=== PATIENT | female | born 1950 | race Caucasian/White ===

== ENCOUNTER 2017-08-20 22:14 | Inpatient (IN) | payer BC ==
[2017-08-20] MEDS ORDERED: Albuterol/Ipratropium NEB.SOL* Albuterol 2.5 MG/Ipratropium 0.5 MG 3 ML INH ONE (22:46)
[2017-08-20] MEDS ORDERED: methylPREDNISolone 125 MG* 2 ML VIAL IV ONE (22:46)
[2017-08-20] MEDS ORDERED: Magnesium Sulfate 2 GM IV* 2 GM/50 ML BAG IVPB ONE (22:46)
[2017-08-20] MEDS: Albuterol 2.5 MG/3 ML NEB.SOL* (0.083%) INH SCH (23:31)
[2017-08-20 23:36] LABS: ABS Basophils 0.1 10^3/ul (0-0.2); ABS Eosinophils 0.1 10^3/ul (0-0.6); ABS Lymphocytes 2.4 10^3/ul (1.0-4.8); ABS Monocytes 1.3 10^3/ul (0-0.8); ABS Neutrophils 10.9 10^3/ul (1.5-7.7); ABS Nucleated RBC 0 10^3/ul; Eosinophil % 0.6 % (0-6); Hematocrit 39 % (35-47); Hemoglobin 13.4 g/dl (12.0-16.0); Lymphocyte % 16.1 % (25-47); Mean Corpuscular HGB Conc 34 g/dl (31-36); Mean Corpuscular Hemoglobin 31 pg (27-31); Mean Corpuscular Volume 91 fL (80-97); Mean Platelet Volume 7.5 um3 (7.4-10.4); Nucleated Red Blood Cells % 0; Platelet Count 298 10^3/ul (150-450); Red Cell Distribution Width 15 % (10.5-15); White Blood Count 14.8 10^3/ul (3.5-10.8)
[2017-08-20 23:54] LABS: EGFR Non-African American 96.9 (>60)
[2017-08-21] MEDS ORDERED: Baclofen TAB* 10 MG PO PRN (00:18)
[2017-08-21] MEDS ORDERED: traMADol TAB* 50 MG PO PRN (00:31)
[2017-08-21] MEDS ORDERED: Acetaminophen TAB* 325 MG PO PRN (00:31)
[2017-08-21] MEDS: Enoxaparin(*) 80 MG/0.8 ML SYR SUBCUT SCH ×2 (00:40→13:10)
[2017-08-21] MEDS ORDERED: Levofloxacin 500 MG IVPREMIX(* 500 MG/100 ML BAG IVPB SCH (01:00)
[2017-08-21] MEDS ORDERED: Clotrimazole TROCHE* 10 MG TROCHE PO SCH (02:00)
--- NOTE | 2017-08-21 03:41 | ED ---
Ernesto Villegas Thomas, scribed for Hien Galvan MD on 08/20/17 at 2302 . Shortness of Breath - HPI Summary HPI Summary: The patient is a 66 year old female complaining of shortness of breath for the last few days. She went to urgent care five days ago, where she had a CXR and was diagnosed with pneumonia and put on Levaquin. The patient also complains of upper back pain. She denies chest pain. She has a 50 year smoking history. - History of Current Complaint Chief Complaint: EDShortnessOfBreath Time Seen by Provider: 08/20/17 22:39 Hx Obtained From: Patient Onset/Duration: Lasting Days, Still Present Timing: Constant Current Severity: Moderate Dyspnea At: Rest Alleviating Factors: Nothing Associated Signs & Symptoms: Negative - chest pain - Allergy/Home Medications Allergies/Adverse Reactions: Allergies Allergy/AdvReac Type Severity Reaction Status Date / Time aspirin Allergy Unknown Verified 08/20/17 22:44 Reaction Details erythromycin base Allergy Unknown Verified 08/20/17 22:44 Reaction Details molds Allergy Unknown Uncoded 08/20/17 22:44 Reaction Details Home Medications: Home Medications Albuterol HFA INHALER* [Ventolin HFA Inhaler*] 1 puff INH Q4H PRN 08/20/17 [ History Confirmed 08/20/17] Baclofen TAB* [Lioresal TAB*] 10 mg PO TID PRN 08/20/17 [History Confirmed 08/20] Clotrimazole PATRIA* [Mycelex PATRIA*] 10 mg MT .FIVETIMESADAY 08/20/17 [ History Confirmed 08/20/17] Furosemide TAB* [Lasix TAB*] 40 mg PO DAILY 08/20/17 [History Confirmed 08/20/17 ] Ibuprofen TAB* [Advil TAB*] 200 mg PO Q6H PRN 08/20/17 [History Confirmed ] Levofloxacin TAB* [Levaquin TAB*] 750 mg PO DAILY 08/20/17 [History Confirmed ] predniSONE TAB* [Deltasone TAB*] 20 mg PO DAILY 08/20/17 [History Confirmed 07/05] PMH/Surg Hx/FS Hx/Imm Hx Cardiovascular History: Reports: Hx Deep Vein Thrombosis - 10 yrs ago Respiratory History: Reports: Other Respiratory Problems/Disorders - bronchitis x2 Sensory History: Reports: Hx Contacts or Glasses - pt family brought in Opthamlomology History: Reports: Hx Contacts or Glasses - pt family brought in - Surgical History Surgery Procedure, Year, and Place: hysterectomy,appendectomy Infectious Disease History: Denies: Traveled Outside the [place] in Last 30 Days - Family History Known Family History: Negative: Seizure Disorder - Social History Alcohol Use: None Hx Substance Use: No Substance Use Type: Reports: None Hx Tobacco Use: Yes Smoking Status (MU): Heavy Every Day Tobacco Smoker Review of Systems Negative: Fever Negative: Chest Pain Positive: Shortness Of Breath Positive: Other - Upper back pain All Other Systems Reviewed And Are Negative: Yes Physical Exam - Summary Physical Exam Summary: VITAL SIGNS: Reviewed. GENERAL: Patient is a well-developed and nourished female who is lying comfortable in the stretcher. Patient is not in any acute respiratory distress. HEAD AND FACE: No signs of trauma. No ecchymosis, hematomas or skull depressions. No sinus tenderness. EYES: PERRLA, EOMI x 2, No injected conjunctiva, no nystagmus. EARS: Hearing grossly intact. Ear canals and tympanic membranes are within normal limits. MOUTH: Oropharynx within normal limits. NECK: She has JVD. Supple, trachea is midline, no adenopathy, no carotid bruit, no c-spine tenderness, neck with full ROM. CHEST: Symmetric, no tenderness at palpation LUNGS: There are decreased breath sounds bilaterally. She has expiratory wheezes. CVS: Regular rate and rhythm, S1 and S2 present, no murmurs or gallops appreciated. ABDOMEN: Soft, non-tender. There is abdominal distention. No rebound no guarding , and no masses palpated. Bowel sounds are normal. EXTREMITIES: She has 2+ bilateral lower extremity edema. FROM in all major joints, no cyanosis or clubbing. NEURO: Alert and oriented x 3. No acute neurological deficits. Speech is normal and follows commands SKIN: Dry and warm Triage Information Reviewed: Yes Vital Signs On Initial Exam: Initial Vitals Temp Pulse Resp BP Pulse Ox 97.5 F 93 26 148/67 97 08/20/17 22:23 08/20/17 22:23 08/20/17 22:23 08/20/17 22:23 08/20/17 22:23 Vital Signs Reviewed: Yes Diagnostics - Vital Signs Vital Signs Temp Pulse Resp BP Pulse Ox 08/20/17 22:37 85 20 130/85 97 08/20/17 22:23 97.5 F 93 26 148/67 97 - Laboratory Result Diagrams: 08/20/17 23:25 08/20/17 23:25 Lab Statement: Any lab studies that have been ordered have been reviewed, and results considered in the medical decision making process. - Radiology CXR Xray Interpretation: Positive (See Comments) - Hyperinflation. COPD. Radiology Interpretation Completed By: ED Physician - EKG 00:20 Cardiac Rate: NL EKG Rhythm: Sinus Rhythm - at 93 BPM Ectopy: PVCs Course/Dx - Course Assessment/Plan: The patient is a 66 year old female complaining of shortness of breath for the last few days. In the ED course, the patient was given Ventolin, DuoNeb, magnesium sulfate, and SoluMedrol. Bloodwork was obtained. EKG shows sinus rhythm at 93 BPM with PVCs. CXR shows hyperinflation and COPD. The patient will be admitted to Dr. Atwood. - Diagnoses Provider Diagnoses: Acute bronchitis, COPD (chronic obstructive pulmonary disease) - Physician Notifications Discussed Care of Patient With: Africa Atwood Time Discussed With Above Provider: 00:30 Instructed by Provider To: Admit As Inpatient Discharge - Sign-Out/Discharge Documenting (check all that apply): Discharge/Admit/Transfer - Discharge Plan Condition: Fair Disposition: ADMITTED TO [facility] Referrals: Hector Quiles MD [Primary Care Provider] - The documentation as recorded by the Ernesot akers Thomas accurately reflects the service I personally performed and the decisions made by , Hien Galvan MD.
--- NOTE | 2017-08-21 04:24 | HP ---
CC: Dr. Figueroa * HISTORY AND PHYSICAL: DATE OF ADMISSION: 08/21/17 PRIMARY CARE PROVIDER: Dr. Figueroa. CHIEF COMPLAINT: Shortness of breath. HISTORY OF PRESENT ILLNESS: Ms. Maldonado is a 66-year-old female who has a longstanding history of tobacco abuse, smoking anywhere between 1/2 to 1 pack per day since the age of 15, who presents to the emergency room with complaints of severe shortness of breath. The patient states that she went on vacation to [place] approximately 1 month ago. She got back approximately 2 weeks ago. She states that prior to her trip to [place], she was having spasms in her back. She states the first week of her vacation in [place], she actually felt quite well; however, during the second week, she again noted muscle spasms in the back. She denies any sudden onset of chest pain. She states her breathing became difficult during that second week of vacation. She denies any recent sick contacts. She states that she does have a frequent cough and is bringing up yellowish sputum. She also notes that since arriving home, her legs are more swollen than usual. She saw a physician on 08/14/17 where she was prescribed baclofen. She states it is extremely painful to cough or sneeze due to pain in her back. On 08/15/17, she continues to feel worse and therefore went to urgent care. At that time, she had a chest x-ray and was diagnosed with pneumonia. She was started on Levaquin. Despite initiation of therapy with Levaquin, she continued to feel more and more short of breath and therefore , presented to the emergency room for evaluation. PAST MEDICAL HISTORY: 1. Longstanding tobacco abuse. Patient adamantly denies a history of COPD, but seems to be in denial. 2. Chronic lower extremity edema. PAST SURGICAL HISTORY: 1. Appendectomy. 2. Hysterectomy. ALLERGIES: ASPIRIN, ERYTHROMYCIN, MOLD, and she states that she cannot have a CT with contrast. FAMILY HISTORY: Mom in her 40s with cervical cancer. Dad in his 80s of old age. SOCIAL HISTORY: The patient currently smokes one-half to three-quarters of pack of cigarettes per day. She states that used to be a lot of more than that. She states that she has been smoking since the age of 15. She denies any alcohol use. 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 She is . She had 1 child, who in February. REVIEW OF SYSTEMS: The patient states that she has had a low-grade temp of 99 at home. Her appetite has been essentially normal. She denies any chest pain. She does admit to worsen lower extremity edema. She admits to cough, shortness of breath, and sputum production as above. No nausea, vomiting, abdominal pain, constipation, diarrhea, or hematochezia. No hematuria, no dysuria. No focal weakness or sensory loss. No sudden changes in vision. No dysphagia. She admits to the back pain between her shoulder blades. No rashes. She admits to anxiety and depression since the passing of her son in February. She states that she found him and has been depressed since. PHYSICAL EXAMINATION GENERAL: The patient is a well-developed, middle-aged female, seems sitting up in the stretcher, appearing to be in moderate respiratory distress with abdominal breathing and accessory muscle use. VITAL SIGNS: Blood pressure 136/70, pulse 85, respirations 17, temp 97.5, O2 sat 92% on room air. HEENT: Pupils are equal and round. Extraocular muscles are intact. Oropharynx is clear. Oral mucosa is moist. The patient wears upper and lower dentures. There is no submandibular, cervical, or supraclavicular adenopathy. Thyroid is not enlarged. No thyroid nodules are noted. PULMONARY: Breath sounds are markedly diminished in all lung kelley. There is diffuse wheezing. There is very poor air movement at this time. CARDIAC: Normal S1, S2. Regular rate and rhythm. I do not appreciate any murmurs. There is a marked bilateral lower extremity edema. ABDOMEN: Bowel sounds are present. Abdomen is soft, nontender, nondistended. MUSCULOSKELETAL: There is no cyanosis or clubbing of the digits. There is full active range of motion of all 4 extremities. NEUROLOGIC: Cranial nerves II through XII are grossly intact. Sensation is intact to light touch throughout. Strength is 5/5 and symmetric in both upper and lower extremities bilaterally. SKIN: Warm and dry. There are no rashes. PSYCH: The patient is alert. She is oriented x3. Affect appears appropriate. DIAGNOSTIC STUDIES/LAB DATA: WBC 14.8, hemoglobin 13.4, hematocrit 39, platelets 298. Sodium 133, potassium 4.2, chloride 97, CO2 31, BUN 21, creatinine 0.62, glucose 81, lactic acid 1.0, calcium 8.8. Bilirubin 0.3, AST 17, ALT 17, alk phos 98. Troponin 0.01. CRP 16.7. Albumin 3.6. EKG reveals normal sinus rhythm without any acute ST-T wave abnormalities. Chest x-ray to my interpretation appears to be relatively clear, though I do question possible infiltrate at the left base. ASSESSMENT AND PLAN: Ms. Maldonado is a 66-year-old female with probable chronic obstructive pulmonary disease, though the patient adamantly denies this, ongoing tobacco abuse and chronic lower extremity edema, who presents to the emergency room with complaints of severe shortness of breath. 1. Acute respiratory distress. The patient has a moderate respiratory distress in the emergency room. I am concerned that she may tire out as she has been breathing like this for the last several days. At this point, we will admit her to the intensive care unit and place her on Vapotherm. The patient has agreed to BiPAP and intubation if necessary, though states that she knows that she will not need either of those modalities and that she will be fine. She will be treated for a probable COPD exacerbation with IV Solu-Medrol, standing nebs, and Levaquin. Additionally, she will be placed on Vapotherm to help with a work of her breathing. Given her long distance travel, back pain, and lower extremity edema, I am concerned that she could have a pulmonary embolism. The patient claims that she cannot have a CT with contrast. At this point, I will fully anticoagulate her with Lovenox 80 mg subcutaneous twice daily and plan on bilateral lower extremity Dopplers and a V/Q scan later today. 2. Lower extremity edema. The patient states that she usually has some lower extremity edema, but this is markedly worse than baseline. I will continue her Lasix 40 mg daily for now. 3. Back pain. We will continue baclofen p.r.n. and I will add Tylenol and tramadol for pain control. 4. DVT prophylaxis. According to the Adult Thrombosis Prophylaxis Risk Factor Assessment Guide, the patient has a total risk factor score of 4 making her high risk. Full dose Lovenox is going to be utilized at this time. 5. Code status is full. TIME SPENT: Sixty-five minutes was spent admitting this patient. [id number] #: [id number] MARIA D
[2017-08-21] MEDS: Albuterol 2.5 MG/3 ML NEB.SOL* (0.083%) INH SCH ×6 (04:27→23:37)
[2017-08-21] MEDS ORDERED: Heparin VIAL(*) 5000 UNITS/ML VIAL (FIVE THOUSAND) SUBCUT SCH (06:00)
[2017-08-21] MEDS: Clotrimazole TROCHE* 10 MG TROCHE PO SCH ×5 (06:14→21:50)
--- NOTE | 2017-08-21 07:24 | RAD ---
INDICATION: Shortness of breath. COMPARISON: Most recent comparison chest x-ray March 21, 2016 TECHNIQUE: Single AP portable view of the chest was obtained. FINDINGS: Image quality is compromised due to the relative inferiority of a portable chest x-ray. The heart and mediastinum exhibit normal size and contour. The lungs are grossly clear. There is no evidence of a large pleural effusion. Visualized bones are normal for the patient's age. IMPRESSION: No radiographic evidence for acute cardiopulmonary abnormality on this portable chest x-ray.
[2017-08-21] MEDS: Furosemide TAB* 40 MG PO SCH (08:25)
[2017-08-21] MEDS: methylPREDNISolone SOD 40 MG* 1 ML VIAL IV SCH ×3 (08:25→23:58)
--- NOTE | 2017-08-21 08:37 | RAD ---
INDICATION: Pain and swelling. COMPARISON: None TECHNIQUE: Duplex interrogation of the both lower extremities was performed. FINDINGS: Deep veins: The common femoral, great saphenous, profunda femoris, proximal, mid, and distal deep femoral, popliteal, posterior tibial, and peroneal veins are patent. There is normal compressibility, augmentation, and phasic flow. Superficial veins: There are no findings of superficial thrombophlebitis. Popliteal fossa:There is no evidence of a popliteal cyst. Soft tissues:There are no soft tissue abnormalities. IMPRESSION: NORMAL BILATERAL EXAMINATION. NO EVIDENCE OF DEEP VENOUS THROMBOSIS
--- NOTE | 2017-08-21 10:26 | PN ---
Subjective Date of Service: 08/21/17 Interval History: Pt is down to 2 l on her 02 requirements, but very SOB when walking 5 steps to bathroom. Feels "the same as yesterday" Objective Active Medications: Acetaminophen (Tylenol Tab*) 650 mg PO Q4H PRN PRN Reason: PAIN Albuterol (Ventolin 2.5 Mg/3 Ml Neb.Mariam*) 2.5 mg INH RT.[id number] AWAKE [facility] Last Admin: 08/21/17 08:43 Dose: 2.5 mg Baclofen (Lioresal Tab*) 10 mg PO TID PRN PRN Reason: SPASMS Clotrimazole (Mycelex Maryellen*) 10 mg PO FIVE TIMES DAILY [facility] Last Admin: 08/21/17 10:13 Dose: 10 mg Enoxaparin Sodium (Lovenox(*)) 80 mg SUBCUT Q12H [facility] Last Admin: 08/21/17 00:40 Dose: 80 mg Furosemide (Lasix Tab*) 40 mg PO DAILY [facility] Last Admin: 08/21/17 08:25 Dose: 40 mg Azithromycin 500 mg/ Sodium (Chloride) 250 mls @ 250 mls/hr IVPB Q24H [facility] Methylprednisolone Sodium Succinate (Solu-Medrol 40 Mg) 40 mg IV Q8H [facility] Last Admin: 08/21/17 08:25 Dose: 40 mg Tramadol HCl (Ultram*) 50 mg PO Q6H PRN PRN Reason: PAIN Vital Signs - 8 hr 08/21/17 08/21/17 08/21/17 02:28 02:37 02:44 Temperature 98 F Pulse Rate 93 97 87 Respiratory 25 18 26 Rate Blood Pressure 137/74 133/82 (mmHg) O2 Sat by Pulse 97 97 97 Oximetry 08/21/17 08/21/17 08/21/17 02:45 02:47 03:00 Temperature Pulse Rate 85 82 Respiratory 21 27 24 Rate Blood Pressure 135/72 134/75 (mmHg) O2 Sat by Pulse 97 98 Oximetry 08/21/17 08/21/17 08/21/17 03:31 03:47 04:00 Temperature 97.7 F Pulse Rate 82 86 81 Respiratory 25 26 21 Rate Blood Pressure 153/77 117/82 (mmHg) O2 Sat by Pulse 99 98 96 Oximetry 08/21/17 08/21/17 08/21/17 04:01 05:00 06:00 Temperature Pulse Rate 80 81 78 Respiratory 22 22 17 Rate Blood Pressure 135/85 136/74 124/68 (mmHg) O2 Sat by Pulse 99 97 96 Oximetry 08/21/17 08/21/17 08/21/17 07:00 07:01 08:00 Temperature 98.3 F Pulse Rate 84 80 Respiratory 25 25 24 Rate Blood Pressure 120/75 133/75 (mmHg) O2 Sat by Pulse 95 97 Oximetry 08/21/17 08/21/17 08/21/17 08:45 09:00 09:01 Temperature Pulse Rate 72 95 77 Respiratory 22 28 27 Rate Blood Pressure 128/70 (mmHg) O2 Sat by Pulse 94 85 95 Oximetry 08/21/17 08/21/17 10:00 10:02 Temperature Pulse Rate 103 95 Respiratory 29 29 Rate Blood Pressure (mmHg) O2 Sat by Pulse 96 96 Oximetry Oxygen Devices in Use Now: OxyMask Appearance: 66 yo F in nAD, aAOx3 Eyes: No Scleral Icterus, PERRLA Ears/Nose/Mouth/Throat: NL Teeth, Lips, Gums, Mucous Membranes Moist Neck: NL Appearance and Movements; NL JVP, Trachea Midline Respiratory: Symmetrical Chest Expansion and Respiratory Effort, - - diffuse wheezes and rhonchi b/l Cardiovascular: NL Sounds; No Murmurs; No JVD, RRR Abdominal: NL Sounds; No Tenderness; No Distention, No Hepatosplenomegaly Lymphatic: No Cervical Adenopathy Extremities: No Clubbing, Cyanosis, - - +1 pitting pedal edema b/l Skin: No Rash or Ulcers, No Nodules or Sclerosis Neurological: Alert and Oriented x 3, NL Muscle Strength and Tone Result Diagrams: 08/20/17 23:25 08/20/17 23:25 Microbiology and Other Data: Microbiology 08/21/17 02:40 Nasal Screen MRSA (PCR)(EMEKA) - Final Nasal Mrsa Not Detected Assess/Plan/Problems-Billing Assessment: 66 yo F with h/o 50 pack yr smoking with COPD exacerbation - Patient Problems (1) Acute hypoxemic respiratory failure Comment: due to COPD, but V/Q to r/o PE pending cont empiric Lovenox for now. Dopplers neg for DVT (2) COPD exacerbation Comment: cont Solu Medrol, nebs SARTHAK due to low procalcitonin and neg CXR will d/c Levaquin and start Azithro for antiinflammatory properties. (pt had nausea with e-mycin, OK to give azithro) (3) Leg edema Comment: will get echo to r/o R sided CHF related to lung disease BNP low cont home Lasix dose (4) Thrush, oral Comment: now evidence now on exam. Dx on 08/15/17 as outpatient. Cont clotrimazome for now whn on antibiotics (5) DVT prophylaxis Comment: Lovenox Status and Disposition: Inpatient
[2017-08-21] MEDS: Azithromycin IV(*) 500 MG in NS 0.9% 250 ML* 250 ML IVPB SCH (12:01)
--- NOTE | 2017-08-21 13:59 | RAD ---
HISTORY: Shortness of breath COMPARISON: Chest x-ray dated August 20, 2012 TECHNIQUE: Pulmonary ventilation/perfusion scintigraphy was performed with dynamic cine images and multiple planar images. DOSE: Ventilation: Xenon-133 10.25 millicuries, administered at 11:31 AM on August 21, 2017 Perfusion: Technetium 99m microaggregated albumin 6.2 millicuries, administered at 11:31 AM on August 21, 2017 FINDINGS: Ventilation: There is homogeneous ventilation. Perfusion: There are scattered, small subsegmental unmatched perfusion defects, without moderate or large matched defects. IMPRESSION: SCATTERED SMALL SUBSEGMENTAL UNMATCHED PERFUSION DEFECTS, CONSISTENT WITH LOW PROBABILITY VQ SCAN BY PIOPED CRITERIA CPT II Codes: 7787W8Y
--- NOTE | 2017-08-21 15:16 | ECHO ---
Patient: EMMIE CARLOS [facility] Rec#: [id number] : 1950 Date: 08/21/2017 Age: 66y Height: 167.64 cm / 66.0 in Weight: 79.38 kg / 175.0 lbs Sex: F BSA: 1.89 Room#: [facility] Admit Date#: 08/21/2017 Type: Inpatient Referring: Nahed Rodgers MD Reading: Osbaldo Cavazos DO Him Specialist: Maty Willis RDCS CC: Hector Quiles MD Transthoracic Echocardiogram Indication: Dyspnea, edema. BP: 128/70 HR: 80 Rhythm: NSR Findings History: COPD, smoker, lower extremity edema. Technical Comments: The study quality is fair. The study is technically limited due to the patient's smoking history. Completed at 1400. Left Ventricle: The left ventricular chamber size is normal. Mild concentric left ventricular hypertrophy is observed. Global left ventricular wall motion and contractility are within normal limits. There is normal left ventricular systolic function. The estimated ejection fraction is 60-65%. Abnormal left ventricular diastolic filling is observed, consistent with impaired relaxation. Left Atrium: The left atrium is mildly dilated. Right Ventricle: The right ventricle is mildly dilated. The right ventricular global systolic function is normal. Right Atrium: The right atrial cavity size is normal. Aortic Valve: The aortic valve is trileaflet. The aortic valve leaflets are mildly thickened. There is no evidence of aortic regurgitation. There is no evidence of aortic stenosis. Mitral Valve: The mitral valve leaflets are mildly thickened. There is a trace of mitral regurgitation. There is no evidence of mitral stenosis. Tricuspid Valve: The tricuspid valve leaflets are normal. There is trace tricuspid regurgitation. Unable to estimate the right ventricular systolic pressure. There is no tricuspid stenosis. Pulmonic Valve: The pulmonic valve structure is not well visualized. The pulmonic valve appears normal. There is no pulmonic stenosis. Pericardium: There is no significant pericardial effusion. Aorta: There is no dilatation of the ascending aorta. There is no dilatation of the aortic arch. The aortic root is normal in size. Pulmonary Artery: The main pulmonary artery is not well visualized. Venous: The inferior vena cava is dilated. There is a greater than 50% respiratory change in the inferior vena cava dimension. Conclusions The left ventricular chamber size is normal. Mild concentric left ventricular hypertrophy is observed. Global left ventricular wall motion and contractility are within normal limits. There is normal left ventricular systolic function. The estimated ejection fraction is 60-65%. The left atrium is mildly dilated. The right ventricle is mildly dilated. The right ventricular global systolic function is normal. Unable to estimate the right ventricular systolic pressure. There is trace tricuspid regurgitation. The inferior vena cava is dilated. There is a greater than 50% respiratory change in the inferior vena cava dimension. None prior for comparison at time of interpretation Measurements Name Value Normal Range RVIDd (AP) 2D 2.5 cm (0.9 - 2.6) RVDdMajor (2D) 4.9 cm (2.2 - 4.4) RAd ISD 4CH 4.3 cm (3.4 - 4.9) RA (A4C)W 4 cm (2.9 - 4.6) IVSd (2D) 1.2 cm (0.6 - 1) LVPWd (2D) 1.1 cm (0.6 - 1) LVIDd (2D) 4.3 cm (3.6 - 5.4) LVIDs (2D) 3.4 cm - LV FS (2D) 21 % (25 - 45) Aortic Annulus 2.1 cm (1.4 - 2.6) Ao root diameter (2D) 3.1 cm (2.1 - 3.5) Ascending Ao 3 cm (2.1 - 3.4) Aortic arch 2.3 cm (1.8 - 3.4) LA dimension (AP) 2D 2.9 cm (2.3 - 3.8) LAd ISD 4CH 4.8 cm (2.9 - 5.3) LA ISD 4CH W 3.5 cm (2.5 - 4.5) Name Value Normal Range LA ESV SP 4CH (A/L) 64 ml - LA ESV SP 2CH (A/L) 58 ml - LA ESV BP (A/L) 63 ml - LA ESV BP (A/L) index 33 ml/m2 - LA ESV SP 4CH (MOD) 59 ml - LA ESV SP 2CH (MOD) 57 ml - Name Value Normal Range MV E-wave Vmax 0.84 m/sec - MV deceleration time 175.6 msec - MV A-wave Vmax 1.03 m/sec - MV E:A ratio 0.81 ratio - LV septal e' Vmax 0.07 m/sec - LV lateral e' Vmax 0.09 m/sec - LV E:e' septal ratio 12 ratio - LV E:e' lateral ratio 9.33 ratio - Name Value Normal Range AV Vmax 1.4 m/sec - AV VTI 22.3 cm - AV peak gradient 7.35 mmHg - AV mean gradient 4.16 mmHg - LVOT Vmax 1.1 m/sec - LVOT VTI 24.26 cm - LVOT peak gradient 4.86 mmHg - LVOT mean gradient 2.41 mmHg - PIPPA Vmax 0.77 m/sec - Name Value Normal Range IVC diameter 2.3 cm - Name Value Normal Range PV Vmax 0.84 m/sec - PV peak gradient 2.85 mmHg -
[2017-08-22] MEDS: Albuterol 2.5 MG/3 ML NEB.SOL* (0.083%) INH SCH ×4 (03:57→20:00)
[2017-08-22] MEDS: Clotrimazole TROCHE* 10 MG TROCHE PO SCH ×2 (06:26→10:47)
[2017-08-22 07:02] LABS: ABS Basophils 0 10^3/ul (0-0.2); ABS Eosinophils 0 10^3/ul (0-0.6); ABS Lymphocytes 0.9 10^3/ul (1.0-4.8); ABS Monocytes 0.8 10^3/ul (0-0.8); ABS Nucleated RBC 0 10^3/ul; Eosinophil % 0 % (0-6); Hematocrit 36 % (35-47); Lymphocyte % 4.7 % (25-47); Mean Corpuscular HGB Conc 33 g/dl (31-36); Mean Corpuscular Hemoglobin 30 pg (27-31); Mean Corpuscular Volume 91 fL (80-97); Mean Platelet Volume 7.3 um3 (7.4-10.4); Nucleated Red Blood Cells % 0; Platelet Count 298 10^3/ul (150-450); Red Blood Count 3.98 10^6/ul (4.0-5.4); Red Cell Distribution Width 14 % (10.5-15); White Blood Count 18.6 10^3/ul (3.5-10.8)
[2017-08-22 07:18] LABS: EGFR Non-African American 111.3 (>60)
[2017-08-22] MEDS: Enoxaparin(*) 40 MG/0.4 ML SYR SUBCUT SCH (08:19)
[2017-08-22] MEDS: methylPREDNISolone SOD 40 MG* 1 ML VIAL IV SCH (08:20)
[2017-08-22] MEDS: Furosemide TAB* 40 MG PO SCH (08:20)
[2017-08-22] MEDS: Azithromycin IV(*) 500 MG in NS 0.9% 250 ML* 250 ML IVPB SCH ×2 (10:55→13:11)
[2017-08-22] MEDS ORDERED: predniSONE TAB* 10 MG PO ONE (11:31)
[2017-08-22] MEDS: Azithromycin TAB* 250 MG PO SCH (13:15)
--- NOTE | 2017-08-22 13:35 | PN ---
Subjective Date of Service: 08/22/17 Interval History: pt feels much better, but still, requires 02 at 2L. Had a bad night, since her roommate was up at night. Talked about her back pain that occurred in and still occasionally bothers her Objective Active Medications: Acetaminophen (Tylenol Tab*) 650 mg PO Q4H PRN PRN Reason: PAIN Albuterol (Ventolin 2.5 Mg/3 Ml Neb.Mariam*) 2.5 mg INH [id number] AWAKE [facility] TO [facility] Last Admin: 08/22/17 07:55 Dose: 2.5 mg Azithromycin (Zithromax Tab*) 250 mg PO DAILY [facility] Last Admin: 08/22/17 13:15 Dose: 250 mg Baclofen (Lioresal Tab*) 10 mg PO TID PRN PRN Reason: SPASMS Enoxaparin Sodium (Lovenox(*)) 40 mg SUBCUT DAILY [facility] Last Admin: 08/22/17 08:19 Dose: 40 mg Furosemide (Lasix Tab*) 40 mg PO DAILY [facility] Last Admin: 08/22/17 08:20 Dose: 40 mg Prednisone (Deltasone Tab*) 60 mg PO DAILY [facility] TO [facility] Tramadol HCl (Ultram*) 50 mg PO Q6H PRN PRN Reason: PAIN Vital Signs - 8 hr 08/22/17 07:55 Pulse Rate 74 Respiratory 14 Rate O2 Sat by Pulse 100 Oximetry Oxygen Devices in Use Now: OxyMask - at 2l Appearance: 66 yo f in nAD, aAOx3 Eyes: No Scleral Icterus, PERRLA Ears/Nose/Mouth/Throat: NL Teeth, Lips, Gums, Mucous Membranes Moist Neck: NL Appearance and Movements; NL JVP, Trachea Midline Respiratory: Symmetrical Chest Expansion and Respiratory Effort, - - bibasiliar wheezes noted Cardiovascular: NL Sounds; No Murmurs; No JVD, RRR Abdominal: NL Sounds; No Tenderness; No Distention, No Hepatosplenomegaly Lymphatic: No Cervical Adenopathy Extremities: No Clubbing, Cyanosis, - - trace nonpitting pedal edema b/l Skin: No Rash or Ulcers, No Nodules or Sclerosis Neurological: Alert and Oriented x 3, NL Muscle Strength and Tone Result Diagrams: 08/22/17 06:41 08/22/17 06:41 Microbiology and Other Data: Microbiology 08/21/17 02:40 Nasal Screen MRSA (PCR)(EMEKA) - Final Nasal Mrsa Not Detected Assess/Plan/Problems-Billing Assessment: 66 yo F with h/o 50 pack yr smoking with COPD exacerbation - Patient Problems (1) Acute hypoxemic respiratory failure Comment: due to COPD. pt educated about the need of formal PFT's to eval for COPD as outpatient V/q shows low prob. for PE Dopplers neg for DVT echo shows EF 55% and diastolic dysfunction (2) COPD exacerbation Comment: will switch Solu Medrol to Prednisone Azithro for antiinflammatory properties will be cont PO if tolerated. (pt had nausea with e-mycin, OK to give azithro) (3) Leg edema Comment: No evidence of CHF on Echo BNP low cont home Lasix dose (4) Thrush, oral Comment: now evidence now on exam, will d/c clotrimazole (5) DVT prophylaxis Comment: Lovenox Status and Disposition: Inpatient
[2017-08-23] MEDS: Albuterol 2.5 MG/3 ML NEB.SOL* (0.083%) INH SCH ×4 (01:04→19:40)
--- NOTE | 2017-08-23 08:03 | PN ---
Subjective Date of Service: 08/23/17 Interval History: Pt took Baclofen for back pain last night and today is more SOB. Thinks it's related to the medication. Objective Active Medications: Acetaminophen (Tylenol Tab*) 650 mg PO Q4H PRN PRN Reason: PAIN Albuterol (Ventolin 2.5 Mg/3 Ml Neb.Mariam*) 2.5 mg INH [id number] AWAKE [facility] Last Admin: 08/23/17 07:04 Dose: 2.5 mg Azithromycin (Zithromax Tab*) 250 mg PO DAILY [facility] Last Admin: 08/22/17 13:15 Dose: 250 mg Enoxaparin Sodium (Lovenox(*)) 40 mg SUBCUT DAILY [facility] Last Admin: 08/22/17 08:19 Dose: 40 mg Furosemide (Lasix Tab*) 40 mg PO DAILY [facility] Last Admin: 08/22/17 08:20 Dose: 40 mg Prednisone (Deltasone Tab*) 60 mg PO DAILY [facility] Tramadol HCl (Ultram*) 50 mg PO Q6H PRN PRN Reason: PAIN Last Admin: 08/22/17 23:40 Dose: 50 mg Vital Signs - 8 hr 08/23/17 08/23/17 08/23/17 01:45 03:48 07:06 Temperature 97.4 F Pulse Rate 76 66 Respiratory 20 22 20 Rate Blood Pressure 137/67 (mmHg) O2 Sat by Pulse 98 99 Oximetry Oxygen Devices in Use Now: OxyMask - at 1L Appearance: 66 yo F in nAD, aAOx3 Eyes: No Scleral Icterus, PERRLA Ears/Nose/Mouth/Throat: NL Teeth, Lips, Gums, Mucous Membranes Moist Neck: NL Appearance and Movements; NL JVP, Trachea Midline Respiratory: Symmetrical Chest Expansion and Respiratory Effort, - - very decreased breath sounds b/l Cardiovascular: NL Sounds; No Murmurs; No JVD, RRR Abdominal: NL Sounds; No Tenderness; No Distention Lymphatic: No Cervical Adenopathy Extremities: No Clubbing, Cyanosis, - - trace b/l nonpitting pedal edema Skin: No Rash or Ulcers, No Nodules or Sclerosis Neurological: Alert and Oriented x 3, NL Muscle Strength and Tone Result Diagrams: 08/22/17 06:41 08/22/17 06:41 Microbiology and Other Data: Microbiology 08/21/17 02:40 Nasal Screen MRSA (PCR)(EMEKA) - Final Nasal Mrsa Not Detected Assess/Plan/Problems-Billing Assessment: 66 yo F with h/o 50 pack yr smoking with COPD exacerbation - Patient Problems (1) Acute hypoxemic respiratory failure Comment: due to COPD. pt educated about the need of formal PFT's to eval for COPD as outpatient V/q shows low prob. for PE. Pt thiks she may have an adverse reaction to Baclofen that may cause her SOB, will stop the medication Dopplers neg for DVT echo shows EF 55% and diastolic dysfunction (2) COPD exacerbation Comment: Cont PO Prednisone Azithro for antiinflammatory properties will be cont PO (pt had nausea with e- mycin, OK to give azithro) (3) Leg edema Comment: No evidence of CHF on Echo BNP low cont home Lasix dose (4) Thrush, oral Comment: now evidence now on exam, clotrimazole d/c'd (5) DVT prophylaxis Comment: Lovenox Status and Disposition: Inpatient. Plan to wean off 02 and ambulate. Possible d/c tomorrow
[2017-08-23] MEDS: Furosemide TAB* 40 MG PO SCH (08:26)
[2017-08-23] MEDS: predniSONE TAB* 20 MG PO SCH (08:26)
[2017-08-23] MEDS: Azithromycin TAB* 250 MG PO SCH (08:26)
[2017-08-23] MEDS: Enoxaparin(*) 40 MG/0.4 ML SYR SUBCUT SCH (08:31)
[2017-08-23] MEDS: Ibuprofen TAB* 600 MG PO PRN ×2 (10:55→19:15)
[2017-08-24] MEDS: Albuterol 2.5 MG/3 ML NEB.SOL* (0.083%) INH SCH ×3 (00:23→07:09)
[2017-08-24] MEDS: Ibuprofen TAB* 600 MG PO PRN (03:21)
[2017-08-24 06:29] LABS: ABS Basophils 0.1 10^3/ul (0-0.2); ABS Eosinophils 0.1 10^3/ul (0-0.6); ABS Lymphocytes 3.4 10^3/ul (1.0-4.8); ABS Monocytes 1.2 10^3/ul (0-0.8); ABS Nucleated RBC 0 10^3/ul; Eosinophil % 0.5 % (0-6); Hematocrit 36 % (35-47); Hemoglobin 12.1 g/dl (12.0-16.0); Lymphocyte % 24.8 % (25-47); Mean Corpuscular HGB Conc 34 g/dl (31-36); Mean Corpuscular Hemoglobin 31 pg (27-31); Mean Corpuscular Volume 91 fL (80-97); Nucleated Red Blood Cells % 0; Platelet Count 308 10^3/ul (150-450); Red Blood Count 3.91 10^6/ul (4.0-5.4); Red Cell Distribution Width 15 % (10.5-15); White Blood Count 13.8 10^3/ul (3.5-10.8)
[2017-08-24 06:48] LABS: EGFR Non-African American 80.3 (>60)
[2017-08-24 07:51] VITALS: BP 128/58
[2017-08-24] MEDS: predniSONE TAB* 20 MG PO SCH (08:59)
[2017-08-24] MEDS: Azithromycin TAB* 250 MG PO SCH (09:00)
[2017-08-24] MEDS: Furosemide TAB* 40 MG PO SCH (09:00)
[2017-08-24] MEDS: Enoxaparin(*) 40 MG/0.4 ML SYR SUBCUT SCH (09:05)
--- NOTE | 2017-08-25 06:15 | DS ---
CC: Dr. Figueroa; Dr. Quiles; Dr. Bae * DISCHARGE SUMMARY: DATE OF ADMISSION: 08/21/17 DATE OF DISCHARGE: 08/717 PRIMARY CARE PROVIDER: Dr. Figueroa and Dr. Quiles. DISCHARGE DIAGNOSIS: Acute hypoxemic respiratory failure due to chronic obstructive pulmonary disease exacerbation. SECONDARY DIAGNOSES: 1. The patient is an active smoker. 2. Bilateral pedal edema. 3. History of lower back pain. MEDICATION AT DISCHARGE: 1. Azithromycin 250 mg daily for 1 day total to complete a 5 day course. Please note that the patient was noted be allergic to ERYTHROMYCIN but she has been tolerating azithromycin p.o. without any problems. 2. DuoNeb one nebulizer every 4 hours p.r.n. 3. Albuterol inhaler one puff every 4 hours p.r.n. The patient was instructed not to use both albuterol inhaler and nebulizer together. 4. Lasix 40 mg daily. 5. Prednisone 40 mg daily for 2 days, then 20 mg daily for 2 days, then 10 mg daily for 2 days, then stop. At discharge, the patient recommended to follow up with her primary care provider in approximately 4 to 7 days. The patient also was instructed call Dr. Bae's office for further evaluation and treatment of her COPD. LABORATORY DATA AND STUDIES PERFORMED DURING THE HOSPITAL STAY: On 08/24/17, white blood cell count 13.8, hemoglobin is 12.1, hematocrit 36, platelets 308. Sodium of 136, potassium 4.6, chloride 97, carbon dioxide 35, BUN 31, creatinine 0.73. Procalcitonin level was 0.1 at admission. Venous Doppler study obtained on 08/21/17; impression: "Normal bilateral examination. No evidence of DVT." V/Q lung scan obtained on 08/21/17; impression: "Scattered small subsegmental and large pleural effusion defects consistent with low probability V/Q scan." Portable chest x-ray obtained on 08/20/17; impression: "No radiographic evidence for acute cardiopulmonary abnormality on this portable chest x-ray." HOSPITAL COURSE: Jessica Maldonado is a 66-year-old female with history of long- term smoking who presented to the hospital complaining of inability to breathe. The patient was profoundly hypoxemic and required Vapotherm treatment in the intensive care unit. Further workup included low-probability V/Q scan and negative Doppler to rule out DVT of bilateral lower extremities. The patient also had transthoracic echocardiogram due to the fact that she has chronic lower extremity edema which showed EF of 60% to 65% with ventricular diastolic filling consistent with impaired relaxation and trace tricuspid regurgitation. There was no evidence of CHF on her echocardiogram. Slowly the patient was able to be weaned from Vapotherm to oxygen and from oxygen to room air. She continued to be counseled in regard to smoking cessation. She had smoked almost a pack for over 50 years and she refuses to stop smoking. She refuses nicotine replacement and she appears to be in mild nicotine withdrawal during her hospital stay requesting to be discharged everyday of her admission despite being aware that she was not able to go home yet at that point. She also appeared to be in denial of her diagnosis of COPD or any lung disease in that matter. Patient stated that shortness of breath comes from her lower back pain or baclofen and is not related to lung disease or smoking. I strongly recommended the patient to follow up with the pulmonology specialist Dr. Bae , who would perform pulmonary function test evaluation and diagnosis of underlying pulmonary disease. The patient stated that she "will think about it. " The patient also was strongly recommended not to smoke after discharge but I doubt if she will adhere to this advice. PHYSICAL EXAMINATION AT THE TIME OF DISCHARGE: Blood pressure 138/58, heart rate of 93 and regular, respiratory rate 17, oxygen saturation 96% on room air, temperature 97.4. General: The patient is a very pleasant 66-year-old female who is in no acute distress, alert, awake, oriented x3. HEENT: Head atraumatic , normocephalic. Eyes: Pupils are equal and reactive to light and accommodation. Oropharynx clear. Mucosa moist. Neck: Supple. No JVD. No bruits bilaterally. Cardiovascular: Regular rate and rhythm. No murmur. Respiratory: Distant breath sounds bilaterally, no wheezes. Abdomen: Soft, nontender. Bowel sounds present in all 4 quadrants. Extremities: There is no edema. Pulses +2 bilaterally. No clubbing or cyanosis. On neuro evaluation, speech clear. Cranial nerves II through XII grossly intact. Motor strength is 5/5 bilaterally. Please note that patient has typical barrel-chest appearance of a person with history of COPD. Please note that this is a short summary of the patient's hospitalization. Please refer to further medical records for details. TIME SPENT: Approximately 45 minutes was spent on patient's discharge. [id number]/[facility] #: [id number]
== END 2017-08-24 11:30 | disposition home or self-care (01) | DRG 140 ==
LOC: ED 22:14 → ICU 08-21 00:13 → MED 08-21 17:22
PROVIDERS: ADMIT Hospitalist; ATTEND Internal Medicine
DX: J44.1 Chronic obstructive pulmonary disease with (acute) exacerbation (principal); J96.01 Acute respiratory failure with hypoxia; B37.0 Candidal stomatitis; F17.210 Nicotine dependence, cigarettes, uncomplicated; R60.0 Localized edema; Z88.6 Allergy status to analgesic agent; Z88.1 Allergy status to other antibiotic agents; Z91.041 Radiographic dye allergy status; Z91.048 Other nonmedicinal substance allergy status; Z80.49 Family history of malignant neoplasm of other genital organs
CPT/HCPCS: 36415; 71045; 78582; 80048; 80053; 83605; 83880; 84145; 84484; 85025; 86140; 87040; 87641; 93005; 93306; 93970; 94640; 99284; A9270-GY; A9540; A9558; J0456; J1650; J1956; J2920; J2930; J3475; J7512

== ENCOUNTER 2017-09-10 20:17 | Inpatient (IN) | payer BC ==
[2017-09-10] MEDS ORDERED: Ipratropium 0.5MG/2.5ML NEB* 0.5 MG/2.5 ML NEB.SOLN INH ONE (21:00)
[2017-09-10] MEDS ORDERED: methylPREDNISolone 125 MG* 2 ML VIAL IV ONE (21:00)
[2017-09-10] MEDS ORDERED: Magnesium Sulfate 2 GM IV* 2 GM/50 ML BAG IVPB ONE (21:03)
[2017-09-10 21:46] LABS: INR 0.84 (0.77-1.02)
[2017-09-10 21:50] LABS: EGFR Non-African American 93.4 (>60)
[2017-09-10] MEDS ORDERED: Albuterol 2.5 MG/3 ML NEB.SOL* (0.083%) ONE (21:56)
[2017-09-10] MEDS: Albuterol (2.5 MG) 0.5 % CONC 2.5 MG/0.5 ML NEB.SOLN (ICU and ED only) INH SCH ×2 (22:04→22:05)
[2017-09-10 22:52] LABS: ABS Basophils 0.1 10^3/ul (0-0.2); ABS Eosinophils 0.3 10^3/ul (0-0.6); ABS Lymphocytes 1.8 10^3/ul (1.0-4.8); ABS Monocytes 0.9 10^3/ul (0-0.8); ABS Neutrophils 6.3 10^3/ul (1.5-7.7); ABS Nucleated RBC 0 10^3/ul; Eosinophil % 3.3 % (0-6); Hematocrit 35 % (35-47); Hemoglobin 12.1 g/dl (12.0-16.0); Lymphocyte % 19.5 % (25-47); Mean Corpuscular HGB Conc 35 g/dl (31-36); Mean Corpuscular Hemoglobin 31 pg (27-31); Mean Corpuscular Volume 90 fL (80-97); Mean Platelet Volume 7.8 um3 (7.4-10.4); Nucleated Red Blood Cells % 0.1; Platelet Count 286 10^3/ul (150-450); Red Blood Count 3.91 10^6/ul (4.0-5.4); Red Cell Distribution Width 14 % (10.5-15); White Blood Count 9.4 10^3/ul (3.5-10.8)
[2017-09-10] MEDS ORDERED: Furosemide IV* 10 MG/ML VIAL (40 MG) IV ONE (23:00)
[2017-09-10] MEDS ORDERED: Ondansetron ODT TAB* 4 MG PO PRN (23:32)
[2017-09-10] MEDS ORDERED: Albuterol 2.5 MG/3 ML NEB.SOL* (0.083%) INH PRN (23:32)
[2017-09-10] MEDS ORDERED: CMCS:Melatonin (NF) 3 MG TAB PO PRN (23:32)
[2017-09-10] MEDS ORDERED: Acetaminophen TAB* 325 MG PO PRN (23:32)
--- NOTE | 2017-09-10 23:35 | HP ---
H&P (Free Text) History and Physical: PCP: Diana Figueroa MD Date/Time: 09/10/2017 2330 CC: SOB HPI: Mrs Maldonado is a 66YO white female smoker who was [place] [facility] [place] for COPD exacerbation although she denies the history of COPD despite being informed during the prior admission. She relates going home, continuing to smoke, and experiencing worsening SOB which she goes to great length to explain is a result of her furnace malfunctioning causing her to breath carbon monoxide. Despite having her furnace repaired she continued to have SOB and presented for evaluation tonight. SOB is worse with activity, better at rest. There is no chest pain, palpitations, N/V/D, sweats, or light- headedness. She denies change in sputum or F/C. PMedHx COPD diastolic dysfunction w/o HX CHF hypothyroidism chronic LE edema Ambulatory Orders Furosemide TAB* [Lasix TAB*] 40 mg PO DAILY 08/20/17 Albuterol/Ipratropium NEB.ALTAGRACIA* [Duoneb (Albuterol 2.5 MG/Ipratropium 0.5 MG)] 1 neb INH Q4H PRN #100 neb.altagracia 08/24/17 Albuterol inh POWDER (NF) [Proair Respiclick] 1 puff INH Q4HR PRN 09/10/17 Baclofen TAB* [Lioresal TAB*] 10 mg PO TID PRN 09/10/17 Fluticasone HFA 110 mcg(NF) [Flovent HFA 110 mcg(NF)] 2 puff INH BID 09/10/17 Levothyroxine TAB* [Synthroid TAB*] 25 mcg PO DAILY 09/10/17 Allergies aspirin Allergy (Verified 08/20/17 22:44) Unknown Reaction Details erythromycin base Allergy (Verified 08/20/17 22:44) Unknown Reaction Details molds Allergy (Uncoded 08/20/17 22:44) Unknown Reaction Details PSurgHx appendectomy hysterectomy SocHx: continues to smoke but is very vague about how much, denies alcohol and recreational drugs; lives with her ; full code status FamHx: Mother: passed in her 40s 2nd cervical CA; Father: passed in his 80s of "old age" ROS: as above, otherwise reviewed and all were negative vitals: Vital Signs Temp 36.6 C 09/11/17 00:12 Pulse 81 09/11/17 00:20 Resp 39 09/11/17 00:20 BP 134/81 09/11/17 00:20 Pulse Ox 91 09/11/17 00:20 Intake & Output 09/10/17 09/10/17 09/11/17 11:59 23:59 11:59 Intake Total 50 Balance 50 Weight 78.925 kg Intake: IV Fluids 50 Constitutional: NAD, normally developed, overweight white female HEENM: atraumatic; sclera/conjunctiva: anicteric/clear; hearing: clinically intact; oropharynx: clear, mucosa moist Neck: soft tissue: non-tender; thyroid: normal Pulmonary: barrel-chested, brief inspiration w/ prolonged expiration, scant end- expiratory wheeze, very poor aeration, no accessory muscle use CV: RR/RR, normal S1S2, no carotid bruit, no jugular venous distention, 2+ B DP/ PT, 2+ BLE edema Abdominal: soft, non-distended, non-tender, no rebound/guarding/rigidity, normoactive bowel sounds, no hepatosplenomegaly or masses, no costovertebral angle tenderness Musculoskeletal: general: grossly intact, tender B anterior shins Integumental: BLE skin taut/shiny w/o breakdown or weeping Psychiatric orientation: AA&O to PPS affect: calm mood: cooperative eye contact: fair to good content: reliable responses: timely insight: poor Testing: Lab Results 09/10/17 09/10/17 09/10/17 Range/Units 21:20 21:20 21:22 WBC 9.4 (3.5-10.8) 10^3/ul RBC 3.91 L (4.0-5.4) 10^6/ul Hgb 12.1 (12.0-16.0) g/dl Hct 35 (35-47) % MCV 90 (80-97) fL MCH 31 (27-31) pg MCHC 35 (31-36) g/dl RDW 14 (10.5-15) % Plt Count 286 (150-450) 10^3/ul MPV 7.8 (7.4-10.4) um3 Neut % (Auto) 67.0 (38-83) % Lymph % (Auto) 19.5 L (25-47) % Stevens % (Auto) 9.4 H (0-7) % Eos % (Auto) 3.3 (0-6) % Baso % (Auto) 0.8 (0-2) % Absolute Neuts (auto) 6.3 (1.5-7.7) 10^3/ul Absolute Lymphs (auto) 1.8 (1.0-4.8) 10^3/ul Absolute Monos (auto) 0.9 H (0-0.8) 10^3/ul Absolute Eos (auto) 0.3 (0-0.6) 10^3/ul Absolute Basos (auto) 0.1 (0-0.2) 10^3/ul Absolute Nucleated RBC 0 10^3/ul Nucleated RBC % 0.1 INR (Anticoag Therapy) 0.84 (0.77-1.02) APTT 30.1 (26.0-36.3) seconds ABG pH (7.35-7.45) ABG pCO2 (35-45) mmHg ABG pO2 (80-100) mmHg ABG HCO3 (19-31) mmol/L ABG O2 Saturation (95-98) % ABG Base Excess (-2.0-2.0) Carbon Monoxide Screen (<4.0) % Sodium 128 L (139-145) mmol/L Potassium 4.1 (3.5-5.0) mmol/L Chloride 91 L (101-111) mmol/L Carbon Dioxide 31 (22-32) mmol/L Anion Gap 6 (2-11) mmol/L BUN 12 (6-24) mg/dL Creatinine 0.64 (0.51-0.95) mg/dL Est GFR ( Amer) 120.1 (>60) Est GFR (Non-Af Amer) 93.4 (>60) BUN/Creatinine Ratio 18.8 (8-20) Glucose 99 (70-100) mg/dL Calcium 9.1 (8.6-10.3) mg/dL Total Bilirubin 0.50 (0.2-1.0) mg/dL AST 20 (13-39) U/L ALT 20 (7-52) U/L Alkaline Phosphatase 109 H (34-104) U/L Troponin I 0.01 (<0.04) ng/mL C-Reactive Protein 16.16 H (< 5.00) mg/L B-Natriuretic Peptide ( - 100) pg/mL Total Protein 6.3 L (6.4-8.9) g/dL Albumin 3.8 (3.2-5.2) g/dL Globulin 2.5 (2-4) g/dL Albumin/Globulin Ratio 1.5 (1-3) 09/10/17 09/10/17 09/10/17 Range/Units 21:22 22:00 22:30 WBC (3.5-10.8) 10^3/ul RBC (4.0-5.4) 10^6/ul Hgb (12.0-16.0) g/dl Hct (35-47) % MCV (80-97) fL MCH (27-31) pg MCHC (31-36) g/dl RDW (10.5-15) % Plt Count (150-450) 10^3/ul MPV (7.4-10.4) um3 Neut % (Auto) (38-83) % Lymph % (Auto) (25-47) % Stevens % (Auto) (0-7) % Eos % (Auto) (0-6) % Baso % (Auto) (0-2) % Absolute Neuts (auto) (1.5-7.7) 10^3/ul Absolute Lymphs (auto) (1.0-4.8) 10^3/ul Absolute Monos (auto) (0-0.8) 10^3/ul Absolute Eos (auto) (0-0.6) 10^3/ul Absolute Basos (auto) (0-0.2) 10^3/ul Absolute Nucleated RBC 10^3/ul Nucleated RBC % INR (Anticoag Therapy) (0.77-1.02) APTT (26.0-36.3) seconds ABG pH 7.45 (7.35-7.45) ABG pCO2 42 (35-45) mmHg ABG pO2 55 L* (80-100) mmHg ABG HCO3 28.4 (19-31) mmol/L ABG O2 Saturation 94.8 L (95-98) % ABG Base Excess 4.7 H (-2.0-2.0) Carbon Monoxide Screen 5.7 H (<4.0) % Sodium (139-145) mmol/L Potassium (3.5-5.0) mmol/L Chloride (101-111) mmol/L Carbon Dioxide (22-32) mmol/L Anion Gap (2-11) mmol/L BUN (6-24) mg/dL Creatinine (0.51-0.95) mg/dL Est GFR ( Amer) (>60) Est GFR (Non-Af Amer) (>60) BUN/Creatinine Ratio (8-20) Glucose (70-100) mg/dL Calcium (8.6-10.3) mg/dL Total Bilirubin (0.2-1.0) mg/dL AST (13-39) U/L ALT (7-52) U/L Alkaline Phosphatase (34-104) U/L Troponin I (<0.04) ng/mL C-Reactive Protein (< 5.00) mg/L B-Natriuretic Peptide 32 ( - 100) pg/mL Total Protein (6.4-8.9) g/dL Albumin (3.2-5.2) g/dL Globulin (2-4) g/dL Albumin/Globulin Ratio (1-3) 09/11/17 09/11/17 Range/Units 00:02 00:02 WBC 10.6 (3.5-10.8) 10^3/ul RBC 4.01 (4.0-5.4) 10^6/ul Hgb 12.5 (12.0-16.0) g/dl Hct 36 (35-47) % MCV 89 (80-97) fL MCH 31 (27-31) pg MCHC 35 (31-36) g/dl RDW 14 (10.5-15) % Plt Count 271 (150-450) 10^3/ul MPV 7.0 L (7.4-10.4) um3 Neut % (Auto) 90.3 H (38-83) % Lymph % (Auto) 6.3 L (25-47) % Stevens % (Auto) 2.1 (0-7) % Eos % (Auto) 0.7 (0-6) % Baso % (Auto) 0.6 (0-2) % Absolute Neuts (auto) 9.6 H (1.5-7.7) 10^3/ul Absolute Lymphs (auto) 0.7 L (1.0-4.8) 10^3/ul Absolute Monos (auto) 0.2 (0-0.8) 10^3/ul Absolute Eos (auto) 0.1 (0-0.6) 10^3/ul Absolute Basos (auto) 0.1 (0-0.2) 10^3/ul Absolute Nucleated RBC 0 10^3/ul Nucleated RBC % 0 INR (Anticoag Therapy) (0.77-1.02) APTT (26.0-36.3) seconds ABG pH (7.35-7.45) ABG pCO2 (35-45) mmHg ABG pO2 (80-100) mmHg ABG HCO3 (19-31) mmol/L ABG O2 Saturation (95-98) % ABG Base Excess (-2.0-2.0) Carbon Monoxide Screen (<4.0) % Sodium (139-145) mmol/L Potassium (3.5-5.0) mmol/L Chloride (101-111) mmol/L Carbon Dioxide (22-32) mmol/L Anion Gap (2-11) mmol/L BUN 12 (6-24) mg/dL Creatinine 0.58 (0.51-0.95) mg/dL Est GFR ( Amer) 134.6 (>60) Est GFR (Non-Af Amer) 104.7 (>60) BUN/Creatinine Ratio (8-20) Glucose (70-100) mg/dL Calcium (8.6-10.3) mg/dL Total Bilirubin (0.2-1.0) mg/dL AST (13-39) U/L ALT (7-52) U/L Alkaline Phosphatase (34-104) U/L Troponin I (<0.04) ng/mL C-Reactive Protein (< 5.00) mg/L B-Natriuretic Peptide ( - 100) pg/mL Total Protein (6.4-8.9) g/dL Albumin (3.2-5.2) g/dL Globulin (2-4) g/dL Albumin/Globulin Ratio (1-3) ECG, personally reviewed: NSR rate 82, no ischemia CXR, personally reviewed: no acute process ECHO (08/21/2017): Conclusions: The left ventricular chamber size is normal. Mild concentric left ventricular hypertrophy is observed. Global left ventricular wall motion and contractility are within normal limits. There is normal left ventricular systolic function. The estimated ejection fraction is 60 -65%. The left atrium is mildly dilated. The right ventricle is mildly dilated. The right ventricular global systolic function is normal. Unable to estimate the right ventricular systolic pressure. There is trace tricuspid regurgitation. The inferior vena cava is dilated. There is a greater than 50% respiratory change in the inferior vena cava dimension. None prior for comparison at time of interpretation. Impression: 66F presenting with COPD exacerbation DIAGNOSIS & PLAN Primary COPD exacerbationj : patient in denial of diagnosis : albuterol, mometasone/formoterol, tiotropium, & IV methylprednisolone : supplemental oxygen : smoking cessation advised, low motivation : nicotine replacement : supportive care Secondary hypothyroidism : continue levothyroxine Admission Rational: inpatient for COPD exacerbation not anticipated to be adequately resolved w/i 48h to allow for discharge DVTp: heparin SQ & SCDs Code Status: full HCP:
[2017-09-11 00:10] LABS: ABS Basophils 0.1 10^3/ul (0-0.2); ABS Eosinophils 0.1 10^3/ul (0-0.6); ABS Lymphocytes 0.7 10^3/ul (1.0-4.8); ABS Monocytes 0.2 10^3/ul (0-0.8); ABS Neutrophils 9.6 10^3/ul (1.5-7.7); ABS Nucleated RBC 0 10^3/ul; Eosinophil % 0.7 % (0-6); Hematocrit 36 % (35-47); Hemoglobin 12.5 g/dl (12.0-16.0); Lymphocyte % 6.3 % (25-47); Mean Corpuscular HGB Conc 35 g/dl (31-36); Mean Corpuscular Hemoglobin 31 pg (27-31); Mean Corpuscular Volume 89 fL (80-97); Nucleated Red Blood Cells % 0; Platelet Count 271 10^3/ul (150-450); Red Blood Count 4.01 10^6/ul (4.0-5.4); Red Cell Distribution Width 14 % (10.5-15); White Blood Count 10.6 10^3/ul (3.5-10.8)
--- NOTE | 2017-09-11 00:25 | ED ---
Osmany Villegas Elizabeth, scribed for Hien Galvan MD on 09/10/17 at 2107 . Shortness of Breath - HPI Summary HPI Summary: This patient is a 66 year old F presenting to [facility] upon referral from her primary care physician with a chief complaint of shortness of breath since this afternoon. Symptoms aggravated by lying down. Symptoms alleviated by upright position. Patient reports orthopnea, bilateral pedal edema, and pain in both feet. The patient notes that she uses oxygen at home. The patient notes that they recently replaced a faulty heater in her home which had caused them to breathe in carbon monoxide. She reports that they did not clean their air- conditioning unit and used it today. The patient has a hx of COPD and has been taking Lasix. - History of Current Complaint Chief Complaint: EDShortnessOfBreath Time Seen by Provider: 09/10/17 20:50 Hx Obtained From: Patient, Family/Training Project Manager Onset/Duration: Gradual Onset, Lasting Hours, Still Present Timing: Constant Current Severity: Mild Dyspnea At: Orthopena Alleviating Factors: Upright Position Associated Signs & Symptoms: Calf Pain/Swelling, Edema - bilateral pedal edema - Allergy/Home Medications Allergies/Adverse Reactions: Allergies Allergy/AdvReac Type Severity Reaction Status Date / Time aspirin Allergy Unknown Verified 08/20/17 22:44 Reaction Details erythromycin base Allergy Unknown Verified 08/20/17 22:44 Reaction Details molds Allergy Unknown Uncoded 08/20/17 22:44 Reaction Details Home Medications: Home Medications Albuterol inh POWDER (NF) [Proair Respiclick] 1 puff INH Q4HR PRN 09/10/17 [ History Confirmed 09/10/17] Baclofen TAB* [Lioresal TAB*] 10 mg PO TID PRN 09/10/17 [History Confirmed 09/10] Fluticasone HFA 110 mcg(NF) [Flovent HFA 110 mcg(NF)] 2 puff INH BID 09/10/17 [ History Confirmed 09/10/17] Levothyroxine TAB* [Synthroid TAB*] 25 mcg PO DAILY 09/10/17 [History Confirmed 09/10/17] PMH/Surg Hx/FS Hx/Imm Hx Cardiovascular History: Reports: Hx Deep Vein Thrombosis - 10 yrs ago Respiratory History: Reports: Hx Chronic Obstructive Pulmonary Disease (COPD), Hx Pneumonia, Other Respiratory Problems/Disorders - bronchitis x2 Denies: Hx Asthma Musculoskeletal History: Reports: Hx Back Problems - Muscle spasms Sensory History: Reports: Hx Contacts or Glasses - pt family brought in Denies: Hx Hearing Aid Opthamlomology History: Reports: Hx Contacts or Glasses - pt family brought in - Surgical History Surgery Procedure, Year, and Place: hysterectomy,appendectomy Hx Anesthesia Reactions: No Infectious Disease History: No Infectious Disease History: Denies: Traveled Outside the [place] in Last 30 Days - Family History Known Family History: Negative: Seizure Disorder - Social History Alcohol Use: None Hx Substance Use: No Substance Use Type: Reports: None Hx Tobacco Use: Yes Smoking Status (MU): Heavy Every Day Tobacco Smoker Type: Cigarettes Amount Used/How Often: 3/4 pack/day Length of Time of Smoking/Using Tobacco: 50 years Have You Smoked in the Last Year: Yes Review of Systems Negative: Chest Pain Positive: Shortness Of Breath Negative: Abdominal Pain Musculoskeletal: Other - pain in both feet Positive: Edema - bilateral pedal edema All Other Systems Reviewed And Are Negative: Yes Physical Exam - Summary Physical Exam Summary: VITAL SIGNS: Reviewed. GENERAL: ~Patient is a well-developed and nourished female who is lying comfortable in the stretcher. Patient is not in any acute respiratory distress. HEAD AND FACE: No signs of trauma. No ecchymosis, hematomas or skull depressions. No sinus tenderness. EYES: PERRLA, EOMI x 2, No injected conjunctiva, no nystagmus. EARS: Hearing grossly intact. Ear canals and tympanic membranes are within normal limits. MOUTH: Oropharynx within normal limits. NECK: Supple, trachea is midline, no adenopathy, no carotid bruit, no c-spine tenderness, neck with full ROM. JVD. CHEST: Symmetric, no tenderness at palpation LUNGS: Decreased breath sounds bilaterally, expiratory wheezes. CVS: Regular rate and rhythm, S1 and S2 present, no murmurs or gallops appreciated. ABDOMEN: Soft, non-tender. No signs of distention. No rebound no guarding, and no masses palpated. Bowel sounds are normal. EXTREMITIES: FROM in all major joints, no cyanosis or clubbing. Bilateral +3 pedal edema, left food mildly red and tender NEURO: Alert and oriented x 3. No acute neurological deficits. Speech is normal and follows commands. SKIN: Dry and warm Triage Information Reviewed: Yes Vital Signs On Initial Exam: Initial Vitals Temp Pulse Resp BP Pulse Ox 98.2 F 88 22 108/71 93 09/10/17 20:32 09/10/17 20:32 09/10/17 20:32 09/10/17 20:32 09/10/17 20:32 Vital Signs Reviewed: Yes Diagnostics - Vital Signs Vital Signs Temp Pulse Resp BP Pulse Ox 09/10/17 20:32 98.2 F 88 22 108/71 93 - Laboratory Result Diagrams: 09/10/17 21:20 09/10/17 21:22 Lab Statement: Any lab studies that have been ordered have been reviewed, and results considered in the medical decision making process. - Radiology CXR Xray Interpretation: Positive (See Comments) Radiology Interpretation Completed By: ED Physician - Dr. Galvan, pending official report - EKG 21:20 Cardiac Rate: NL - at 82 BPM EKG Rhythm: Sinus Rhythm ST Segment: Normal EKG Interpretation: Normal axis, normal interval, no ischemic changes. Re-Evaluation - Re-Evaluation 1st re-eval Re-Evaluation Time: 23:24 Change: Unchanged Comment: Discussed imaging results with patient. Course/Dx - Course Course Of Treatment: An EKG reveals NSR at 82 BPM with normal axis, normal interval, and no ischemic changes. CXR reveals bilateral venous congestion as interpreted by Dr. Galvan. Pending official report. In the ED course the patient was given Solu-Medrol, magnesium sulfate, Atrovent, Albuterol. We discussed patient care with Dr. Mcadams and he agreed to admit patient to [facility]. Patient will be admitted to [facility] with dx of COPD. The patient is agreeable with this plan. - Diagnoses Provider Diagnoses: COPD (chronic obstructive pulmonary disease) - Physician Notifications Discussed Care of Patient With: Rai Browne MD Time Discussed With Above Provider: 23:31 Instructed by Provider To: Admit As Inpatient Discharge - Sign-Out/Discharge Documenting (check all that apply): Discharge/Admit/Transfer - Discharge Plan Condition: Stable Disposition: ADMITTED TO [facility] Referrals: Brendan Figueroa MD [Primary Care Provider] - The documentation as recorded by the Osmany akers Elizabeth accurately reflects the service I personally performed and the decisions made by me, Hien Galvan MD.
[2017-09-11 00:27] LABS: EGFR Non-African American 104.7 (>60)
[2017-09-11] MEDS: Albuterol 2.5 MG/3 ML NEB.SOL* (0.083%) INH SCH ×2 (02:35→08:55)
[2017-09-11 05:51] LABS: ABS Basophils 0 10^3/ul (0-0.2); ABS Eosinophils 0 10^3/ul (0-0.6); ABS Lymphocytes 0.3 10^3/ul (1.0-4.8); ABS Monocytes 0.1 10^3/ul (0-0.8); ABS Neutrophils 6.4 10^3/ul (1.5-7.7); ABS Nucleated RBC 0 10^3/ul; Eosinophil % 0 % (0-6); Hematocrit 35 % (35-47); Hemoglobin 12.2 g/dl (12.0-16.0); Lymphocyte % 4.7 % (25-47); Mean Corpuscular HGB Conc 35 g/dl (31-36); Mean Corpuscular Hemoglobin 31 pg (27-31); Mean Corpuscular Volume 89 fL (80-97); Mean Platelet Volume 7.5 um3 (7.4-10.4); Nucleated Red Blood Cells % 0; Platelet Count 299 10^3/ul (150-450); Red Blood Count 3.92 10^6/ul (4.0-5.4); Red Cell Distribution Width 14 % (10.5-15); White Blood Count 6.8 10^3/ul (3.5-10.8)
[2017-09-11] MEDS: Levothyroxine TAB* 25 MCG TAB PO SCH (06:00)
[2017-09-11] MEDS: Omeprazole CAP* 20 MG PO SCH (06:00)
[2017-09-11] MEDS: methylPREDNISolone SOD 40 MG* 1 ML VIAL IV SCH ×3 (06:01→22:09)
[2017-09-11] MEDS: Heparin VIAL(*) 5000 UNITS/ML VIAL (FIVE THOUSAND) SUBCUT SCH ×4 (06:04→22:11)
[2017-09-11 06:06] LABS: EGFR Non-African American 87.1 (>60)
--- NOTE | 2017-09-11 07:54 | RAD ---
HISTORY: Shortness of breath COMPARISONS: August 20, 2017 VIEWS: 1: frontal portable view of the chest at 10:52 AM FINDINGS: LINES AND TUBES: None. CARDIOMEDIASTINAL SILHOUETTE: The cardiomediastinal silhouette is normal for portable technique. PLEURA: The costophrenic angles are sharp. No pleural abnormalities are noted. LUNG PARENCHYMA: There is mild prominence of the pulmonary vasculature. ABDOMEN: The upper abdomen is clear. There is no subphrenic gas. BONES AND SOFT TISSUES: No bone or soft tissue abnormalities are noted. IMPRESSION: MILD PULMONARY VASCULAR CONGESTION. NO ACTIVE CARDIOPULMONARY DISEASE.
[2017-09-11] MEDS: Tiotropium CAP.INH* CAP.INH/18 MCG (USE ORDER SET !) INH SCH (08:18)
[2017-09-11] MEDS: Mometasone/Formoter 200/5 MDI INH SCH ×2 (08:18→20:29)
[2017-09-11] MEDS: Docusate CAP* 100 MG PO SCH ×2 (08:50→22:08)
[2017-09-11] MEDS ORDERED: Spiriva Inhaler DEVICE* 1 EACH DEVICE SCH (09:00)
--- NOTE | 2017-09-11 11:38 | PN ---
Subjective Date of Service: 09/11/17 Interval History: Ms. Maldonado reports that she is feeling better but that she continues to be short of breath with ambulation. She denies chest pain, nausea, or abdominal pain. Objective Active Medications: Acetaminophen (Tylenol Tab*) 650 mg PO Q6H PRN Albuterol (Ventolin 2.5 Mg/3 Ml Neb.Mariam*) 2.5 mg INH Q2H PRN Device (Tiotropium Inhaler Device*) 1 each .SEE ORDER .USE w/ SPIRIVA CAPS SARTHAK Docusate Sodium (Colace Cap*) 200 mg PO BID SARTHAK Heparin Sodium (Porcine) (Heparin Vial(*)) 5,000 units SUBCUT Q8HR SARTHAK Levothyroxine Sodium (Synthroid Tab*) 25 mcg PO DAILY@0600 SARTHAK Melatonin (Melatonin (Nf)) 3 mg PO BEDTIME PRN; Protocol Methylprednisolone Sodium Succinate (Solu-Medrol 40 Mg) 40 mg IV Q8H SARTHAK Mometasone Furoate/Formoterol Fumar (Dulera 200/5 Mdi*) 2 puff INH BID SARTHAK Omeprazole (Prilosec Cap*) 20 mg PO DAILY@0600 SARTHAK Ondansetron HCl (Zofran Odt Tab*) 4 mg PO Q6H PRN Tiotropium [place] (Spiriva Cap.Inh*) 1 cap INH DAILY [facility] Vital Signs: Temp Pulse Resp BP Pulse Ox 98.6 F 87 20 94/60 97 09/11/17 07:21 09/11/17 10:33 09/11/17 10:33 09/11/17 07:21 09/11/17 10:33 Oxygen Devices in Use Now: Nasal Cannula Appearance: Female sitting up on edge of bed in NAD Eyes: No Scleral Icterus Ears/Nose/Mouth/Throat: Mucous Membranes Moist Neck: Trachea Midline Respiratory: Symmetrical Chest Expansion and Respiratory Effort, - - Diminished , expiratory wheezing Cardiovascular: NL Sounds; No Murmurs; No JVD, No Edema Abdominal: NL Sounds; No Tenderness; No Distention Lymphatic: No Cervical Adenopathy Extremities: No Edema Skin: No Rash or Ulcers Neurological: Alert and Oriented x 3, NL Muscle Strength and Tone Nutrition: Taking PO's Result Diagrams: 09/11/17 05:26 09/11/17 05:26 Assess/Plan/Problems-Billing Assessment: Ms. Maldonado is a 66 yo F with a PMH of COPD who was recently admitted earlier in August for a COPD exacerbation who returns for COPD exacerbation. - Patient Problems (1) COPD exacerbation Comment: - Currently on 3L NC. - Continue solumedrol - Continue dulera and spiriva. (2) Hypothyroidism Comment: - Continue levothyroxine. (3) DVT prophylaxis Comment: - Hep SQ. (4) Full code status Comment: Status and Disposition: Inpatient. Anticipate discharge to home when medically stable.
--- NOTE | 2017-09-11 13:53 | RAD ---
INDICATION: Hypoxia. COPD. CHF. Long-term smoker. COMPARISON: September 10, 2017 and March 21, 2016 radiographs. TECHNIQUE: Multidetector CT images were obtained from the lung apices to the upper abdomen. Evaluation of the viscera is limited without IV contrast. REPORT: Centrilobular emphysema with advanced parenchymal loss at the upper lung zones. Mild bilateral subsegmental atelectasis. Negative for suspicious focal pulmonary lesions, alveolar consolidation to suggest pneumonia, pleural effusions, pneumothorax. Negative for thoracic lymphadenopathy, cardiomegaly, pericardial effusion. Normal diameter thoracic aorta with minimal calcific plaque. Unremarkable Limited images through the upper abdomen. Mild T3, mild T4, minimal T5, and moderate T6 anterior osteoporotic compression fractures are new compared with the March 21, 2016 lateral chest radiograph. None of the fractures demonstrate gross cortical disruption. There is trabecular impaction at each level. There is no significant resulting acquired central canal stenosis. Negative for paravertebral hematoma. IMPRESSION: 1. COPD. No suspicious focal pulmonary lesion, pneumonia, pleural effusion, or pneumothorax. 2. Negative for thoracic lymphadenopathy. 3. T3, T4, T5, and T6 anterior column osteoporotic compression fractures which could potentially be subacute. Nonetheless there is no resulting acquired central canal stenosis or conspicuous paravertebral hematoma. Correlate with clinical assessment. Consider follow-up DEXA scan to assess bone density.
[2017-09-11] MEDS ORDERED: Nicotine Inhaler* 10 MG AMP INH PRN (15:50)
[2017-09-11] MEDS ORDERED: Mouth Piece, Nicotine* 1 EACH CARTRIDGE INH PRN (15:50)
[2017-09-11] MEDS: Albuterol HFA INHALER* 8 gm MDI INH PRN (15:59)
[2017-09-12] MEDS: Albuterol HFA INHALER* 8 gm MDI INH PRN ×3 (00:27→11:44)
[2017-09-12] MEDS: Levothyroxine TAB* 25 MCG TAB PO SCH (05:36)
[2017-09-12] MEDS: Omeprazole CAP* 20 MG PO SCH (05:37)
[2017-09-12] MEDS: methylPREDNISolone SOD 40 MG* 1 ML VIAL IV SCH ×2 (05:38→05:42)
[2017-09-12] MEDS: Heparin VIAL(*) 5000 UNITS/ML VIAL (FIVE THOUSAND) SUBCUT SCH (05:38)
[2017-09-12] MEDS: Mometasone/Formoter 200/5 MDI INH SCH (07:43)
[2017-09-12] MEDS: Tiotropium CAP.INH* CAP.INH/18 MCG (USE ORDER SET !) INH SCH (07:44)
--- NOTE | 2017-09-12 08:44 | PN ---
Subjective Date of Service: 09/12/17 Interval History: Ms. Maldonado reports feeling better today though she remains short of breath with activity. She denies chest pain, nausea, or abdominal pain and is tolerating oral intake well. Objective Active Medications: Acetaminophen (Tylenol Tab*) 650 mg PO Q6H PRN Albuterol (Ventolin Hfa Inhaler*) 2 puff INH Q4H PRN Device (Tiotropium Inhaler Device*) 1 each .SEE ORDER .USE w/ SPIRIVA CAPS SARTHAK Device (Nicotine Mouth Piece*) 1 each INH .USE WITH NICOTROL PRN Docusate Sodium (Colace Cap*) 200 mg PO BID [facility] Heparin Sodium (Porcine) (Heparin Vial(*)) 5,000 units SUBCUT Q8HR SARTHAK Levothyroxine Sodium (Synthroid Tab*) 25 mcg PO DAILY@0600 [facility] Melatonin (Melatonin (Nf)) 3 mg PO BEDTIME PRN; Protocol Methylprednisolone Sodium Succinate (Solu-Medrol 40 Mg) 40 mg IV Q8H [facility] Mometasone Furoate/Formoterol Fumar (Dulera 200/5 Mdi*) 2 puff INH BID SARTHAK Nicotine (Nicotine Inhaler*) 10 mg INH Q2H PRN Omeprazole (Prilosec Cap*) 20 mg PO DAILY@0600 [facility] Ondansetron HCl (Zofran Odt Tab*) 4 mg PO Q6H PRN Tiotropium [place] (Spiriva Cap.Inh*) 1 cap INH DAILY [facility] Vital Signs: Temp Pulse Resp BP Pulse Ox 97.8 F 90 16 136/58 93 09/12/17 07:42 09/12/17 07:51 09/12/17 07:51 09/12/17 07:42 09/12/17 07:51 Oxygen Devices in Use Now: OxyMask Appearance: Female sitting up on edge of bed in NAD Eyes: No Scleral Icterus Ears/Nose/Mouth/Throat: Mucous Membranes Moist Neck: Trachea Midline Respiratory: Symmetrical Chest Expansion and Respiratory Effort, Clear to Auscultation Cardiovascular: NL Sounds; No Murmurs; No JVD, No Edema Abdominal: NL Sounds; No Tenderness; No Distention Lymphatic: No Cervical Adenopathy Extremities: No Edema Skin: No Rash or Ulcers Neurological: Alert and Oriented x 3, NL Muscle Strength and Tone Nutrition: Taking PO's Result Diagrams: 09/11/17 05:26 09/11/17 05:26 Assess/Plan/Problems-Billing Assessment: Ms. Maldonado is a 66 yo F with a PMH of COPD who was recently admitted earlier in August for a COPD exacerbation who returns for COPD exacerbation. - Patient Problems (1) COPD exacerbation Comment: - Currently on RA at rest with 3L NC for ambulation. Mostly has trouble at night, increase O2 to 4L. - Start prednisone. - Continue dulera and spiriva. (2) Hypothyroidism Comment: - Continue levothyroxine. (3) DVT prophylaxis Comment: - Hep SQ. (4) Full code status Comment: Status and Disposition: Inpatient. Discharge to home.
[2017-09-12] MEDS ORDERED: predniSONE TAB* 20 MG PO ONE (10:43)
[2017-09-12] MEDS: Docusate CAP* 100 MG PO SCH (10:43)
[2017-09-12 11:50] VITALS: BP 114/82
--- NOTE | 2017-09-12 20:49 | DS ---
CC: Dr. Figueroa * [facility] MEDICINE DISCHARGE SUMMARY: DATE OF ADMISSION: 09/10/17 DATE OF DISCHARGE: 09/12/17 PRIMARY CARE PHYSICIAN: Dr. Figueroa. ATTENDING PHYSICIAN: Onel Burnett MD * (dictation provided by eKnzie Moran NP ). PRIMARY DIAGNOSIS: Chronic obstructive pulmonary disease exacerbation. SECONDARY DIAGNOSES: 1. History of diastolic dysfunction without history of congestive heart failure. 2. Hypothyroidism. 3. Chronic lower extremity edema (suspected secondary to prednisone). MEDICATIONS AT THE TIME OF DISCHARGE: 1. Albuterol inhaler 2 puffs q.4 hours p.r.n. 2. Advair 115/21 mcg 1 puff inhaled b.i.d. 3. Spiriva 18 mcg inhaled daily. 4. Baclofen 10 mg p.o. t.i.d. p.r.n. 5. Levothyroxine 25 mcg p.o. daily. 6. Furosemide 40 mg p.o. daily. 7. Prednisone 10 mg via taper, starting at 40 mg. 8. Nicotine inhaler as needed. HOSPITAL COURSE: Ms. Maldonado is a 66-year-old female with a past medical history of COPD with recent admission to our hospital, 08/21/17 to 08/24/17, for COPD exacerbation who presented again on 09/10/17 with concern for shortness of breath. Please see the dictated H and P from Jai Mcadams for complete details. In brief, the patient has had some difficulty understanding that she had a new diagnosis of COPD and was generally resistant to this idea. She continued to smoke on discharge, although she states that she had decreased the amount. Despite this, she had return of shortness of breath and symptoms of COPD exacerbation within 2 days of discharge. At the time of arrival for this admission, she had a chest x- ray which showed mild pulmonary vascular congestion, no active cardiopulmonary disease. She had labs which showed no leukocytosis. She was afebrile. Ms. Maldonado was admitted to the hospital and treated with Solu-Medrol, Dulera, and prednisone. With this, she has had good improvement in her shortness of breath. She initially was on 3 L of oxygen, but now has been wean down to no oxygen at rest and 3 L with ambulation. Her main concern seems to be that she has significant shortness of breath at night when trying to sleep. She does have her bed adjusted so that she can sit up which seems to help her. She is also happy to learn that metered dose inhaler albuterol is the same as the nebulized albuterol as she felt she can use this more easily at night. She also plans to increase her oxygen level at night to 4 L which I think would be appropriate. I have spoken at length to Ms. Maldonado about her diagnosis of COPD. I have strongly encouraged her to continue to try to cut back on smoking and cease altogether if possible. She is being prescribed nicotine replacement therapy. I have also strongly encouraged her to follow up with Dr. Bae from Pulmonology. The patient has lower extremity edema and easy bruising likely related to her prednisone therapy, which is very distressing for her. I have instructed her that Dr. Bae would likely be very helpful in getting her off prednisone, which she has been using intermittently and frequently over at least the last 6 months. I have also counseled her about the difference between long acting inhalers and her acute rescue inhalers and how to use those appropriately. Ms. Maldonado is medically stable for discharge to home. DISPOSITION: To home. DIET: Regular. ACTIVITY: As tolerated. FOLLOWUP PLANS: 1. Please follow up with Dr. Bae within the next month. 2. Please follow up with Dr. Figueroa within the next 1 to 2 weeks. TIME SPENT: Approximately 60 minutes were spent on the discharge of this patient, more than half the time was spent with the patient at the bedside reviewing the events leading up to and during this hospitalization, performing the physical examination, and reviewing my plan of care. KENZIE MORAN NP [id number]/CPS #: [id number] MARIA D
== END 2017-09-12 11:45 | disposition home or self-care (01) | DRG 140 ==
LOC: ED 20:17 → MED 23:30 → UNDOADMIN 09-11 00:12 → UNDODISIN 09-12 11:45
PROVIDERS: ADMIT Hospitalist; ATTEND Internal Medicine
DX: J44.1 Chronic obstructive pulmonary disease with (acute) exacerbation (principal); F17.210 Nicotine dependence, cigarettes, uncomplicated; E03.9 Hypothyroidism, unspecified; T38.0X5A Adverse effect of glucocorticoids and synthetic analogues, initial encounter; E66.3 Overweight; I07.1 Rheumatic tricuspid insufficiency; R60.0 Localized edema; Z88.6 Allergy status to analgesic agent; Z88.1 Allergy status to other antibiotic agents; Z91.048 Other nonmedicinal substance allergy status; Z86.718 Personal history of other venous thrombosis and embolism; Z87.01 Personal history of pneumonia (recurrent); Z90.710 Acquired absence of both cervix and uterus; Z80.49 Family history of malignant neoplasm of other genital organs; Z79.52 Long term (current) use of systemic steroids; Z68.28 Body mass index [BMI] 28.0-28.9, adult; Y92.009 Unspecified place in unspecified non-institutional (private) residence as the place of occurrence of the external cause; Z99.81 Dependence on supplemental oxygen
CPT/HCPCS: 36415; 71045; 71250; 80048; 80053; 82375; 82565; 82803; 83880; 84484; 84520; 85025; 85610; 85730; 86140; 87040; 93005; 94640; 99284; A9270-GY; J1644; J1940; J2920; J2930; J3475; J7512

== ENCOUNTER 2018-07-23 18:37 | Inpatient (IN) | payer MEDICARE, BC ==
[2018-07-23] MEDS ORDERED: Albuterol 0.5% CONC NEB.SOL* 5 MG/ML 20 ml BOT INH ONE (18:54)
[2018-07-23 19:42] LABS: Influenza A Molecular NEGATIVE (Negative); Influenza B Molecular NEGATIVE (Negative)
--- NOTE | 2018-07-23 20:02 | ED ---
Shortness of Breath - HPI Summary HPI Summary: Patient complains of progressive shortness of breath, productive cough, chills and hot spells over the past 2 days. History of COPD with when necessary home O2 on 2L. Patient states she has been using the home O2 almost constantly for the past 2 days. SOB at rest and with exertion. Patient has standing prescription for cefuroxime per PCP, and has taken 4 doses of 500 mg starting yesterday am. Patient also has taken prednisone 40 mg by mouth daily since yesterday. Denies known fever, sore throat, SCHRADER, neck stiffness, CP, N/V/D, abdominal pain, change in urine, change in BM. Medical history COPD. Patient has inhalers at home. No nebulizer. - History of Current Complaint Chief Complaint: EDShortnessOfBreath Time Seen by Provider: 07/23/18 18:59 Hx Obtained From: Patient, Family/Dental Front Office Assistant Onset/Duration: Gradual Onset, Lasting Days Timing: Constant Current Severity: Moderate Dyspnea At: Rest Aggrevating Factors: Movement, Deep Breaths Alleviating Factors: Oxygen Associated Signs & Symptoms: Cough (Productive), Wheezing - Allergy/Home Medications Allergies/Adverse Reactions: Allergies Allergy/AdvReac Type Severity Reaction Status Date / Time aspirin Allergy Unknown Verified 08/20/17 22:44 Reaction Details erythromycin base Allergy Unknown Verified 08/20/17 22:44 Reaction Details molds Allergy Unknown Uncoded 08/20/17 22:44 Reaction Details PMH/Surg Hx/FS Hx/Imm Hx Endocrine/Hematology History: Denies: Hx Anticoagulant Therapy Cardiovascular History: Reports: Hx Deep Vein Thrombosis - 10 yrs ago Respiratory History: Reports: Hx Chronic Obstructive Pulmonary Disease (COPD), Hx Pneumonia, Other Respiratory Problems/Disorders - bronchitis x2 Denies: Hx Asthma Musculoskeletal History: Reports: Hx Back Problems - Muscle spasms Sensory History: Reports: Hx Contacts or Glasses - reading only Denies: Hx Hearing Aid Opthamlomology History: Reports: Hx Contacts or Glasses - reading only EENT History: Denies: Hx Deafness Neurological History: Denies: Hx Dementia Psychiatric History: Denies: Hx Autism - Surgical History Surgery Procedure, Year, and Place: hysterectomy,appendectomy Hx Anesthesia Reactions: No Infectious Disease History: No Infectious Disease History: Denies: Traveled Outside the [place] in Last 30 Days - Family History Known Family History: Negative: Seizure Disorder - Social History Alcohol Use: None Hx Substance Use: No Substance Use Type: Reports: None Hx Tobacco Use: Yes Smoking Status (MU): Light Every Day Tobacco Smoker Type: Cigarettes Amount Used/How Often: 1/2 pack/day Length of Time of Smoking/Using Tobacco: 50 years Have You Smoked in the Last Year: Yes Review of Systems Positive: Chills Eyes: Negative ENT: Negative Cardiovascular: Negative Positive: Shortness Of Breath, Cough Gastrointestinal: Negative Genitourinary: Negative Musculoskeletal: Negative Skin: Negative Neurological: Negative Psychological: Normal All Other Systems Reviewed And Are Negative: Yes Physical Exam - Summary Physical Exam Summary: Diminished breath sounds bilaterally. No apparent wheezing. Regular rate and rhythm. Abdomen soft nontender. Triage Information Reviewed: Yes Vital Signs On Initial Exam: Initial Vitals Temp Pulse Resp BP Pulse Ox 98.8 F 89 28 139/75 90 07/23/18 18:39 07/23/18 18:39 07/23/18 18:39 07/23/18 18:39 07/23/18 18:39 Vital Signs Reviewed: Yes Appearance: Positive: Well-Appearing Skin: Positive: Warm Head/Face: Positive: Normal Head/Face Inspection Eyes: Positive: Normal Neck: Positive: Supple Respiratory/Lung Sounds: Positive: Decreased Breath Sounds Cardiovascular: Positive: Normal Abdomen Description: Positive: Nontender Musculoskeletal: Positive: Normal Neurological: Positive: Normal Psychiatric: Positive: Normal AVPU Assessment: Alert - Aleena Coma Scale Best Eye Response: 4 - Spontaneous Best Verbal Response: 5 - Oriented Diagnostics - Vital Signs Vital Signs Temp Pulse Resp BP Pulse Ox 07/23/18 19:05 88 24 98 07/23/18 18:49 84 142/84 96 07/23/18 18:48 83 96 07/23/18 18:39 98.8 F 89 28 139/75 90 - Laboratory Lab Results: Lab Results 07/23/18 Range/Units 19:19 Influenza A (Rapid) Negative (Negative) Influenza B (Rapid) Negative (Negative) Result Diagrams: 07/23/18 20:21 07/23/18 20:21 Lab Statement: Any lab studies that have been ordered have been reviewed, and results considered in the medical decision making process. Course/Dx - Course Course Of Treatment: Patient complains of progressive shortness of breath, productive cough, chills and hot spells over the past 2 days. History of COPD with when necessary home O2 on 2L. Patient states she has been using the home O2 almost constantly for the past 2 days. SOB at rest and with exertion. Patient has standing prescription for cefuroxime per PCP, and has taken 4 doses of 500 mg starting yesterday am. Patient also has taken prednisone 40 mg by mouth daily since yesterday. Denies known fever, sore throat, SCHRADER, neck stiffness, CP, N/V/D, abdominal pain, change in urine, change in BM. Medical history COPD. Patient has inhalers at home. No nebulizer. Physical exam: Diminished breath sounds bilaterally. No apparent wheezing. Regular rate and rhythm. Abdomen soft nontender. Bilateral wheezing on reexam. Tachycardic, tachypneic, low O2 sats. Some improvement initially with hour-long albuterol breathing treatment, then patient began to have more work of breathing. Patient placed on Vapotherm with some relief in symptoms. EKG sinus tachycardia. Chest x-ray negative for acute process. Labs unremarkable. ABG was attempted, but patient refused. Patient will be admitted to hospitalist Dr. Gonzales - Diagnoses Provider Diagnoses: COPD exacerbation Discharge - Sign-Out/Discharge Documenting (check all that apply): Patient Departure Patient Received Moderate/Deep Sedation with Procedure: No - Discharge Plan Condition: Fair Disposition: ADMITTED TO [facility] Referrals: Brendan Figueroa MD [Primary Care Provider] - - Billing Disposition and Condition Condition: FAIR Disposition: Admitted to [facility]
[2018-07-23] MEDS ORDERED: Albuterol/Ipratropium NEB.SOL* Albuterol 2.5 MG/Ipratropium 0.5 MG 3 ML INH ONE (20:04)
[2018-07-23 20:29] LABS: ABS Basophils 0.1 10^3/ul (0-0.2); ABS Eosinophils 0 10^3/ul (0-0.6); ABS Lymphocytes 1.8 10^3/ul (1.0-4.8); ABS Monocytes 1.3 10^3/ul (0-0.8); ABS Neutrophils 7.7 10^3/ul (1.5-7.7); ABS Nucleated RBC 0 10^3/ul; Eosinophil % 0.4 %; Hematocrit 41 % (33-41); Hemoglobin 13.6 g/dL (12.0-16.0); Lymphocyte % 16.6 %; Mean Corpuscular HGB Conc 34 g/dL (31-36); Mean Corpuscular Hemoglobin 30 pg (27-31); Mean Corpuscular Volume 89 fL (80-97); Mean Platelet Volume 7.2 fL (7.4-10.4); Nucleated Red Blood Cells % 0.1; Platelet Count 281 10^3/uL (150-450); Red Blood Count 4.55 10^6 /uL (3.70-4.87); Red Cell Distribution Width 14 % (10.5-15); White Blood Count 10.9 10^3/uL (3.5-10.8)
[2018-07-23 20:48] LABS: Albumin 4.3 g/dL (3.2-5.2); Albumin/Globulin Ratio 1.7 (1-3); C Reactive Protein 8.75 mg/L (<8.01); Calcium 9.1 mg/dL (8.6-10.3); EGFR African American 112.7 (>60); EGFR Non-African American 93.1 (>60); Globulin 2.6 g/dL (2-4); Potassium 4.3 mmol/L (3.5-5.0); Total Bilirubin 0.5 mg/dL (0.2-1.0); Total Protein 6.9 g/dL (6.4-8.9)
[2018-07-23] MEDS ORDERED: methylPREDNISolone 125 MG* 2 ML VIAL IV ONE (22:25)
[2018-07-23] MEDS ORDERED: cefTRIAXone(*) 1 GM in NS 0.9% 50 ML* 50 ML IVPB SCH (22:27)
[2018-07-23] MEDS ORDERED: cefTRIAXone(*) 1 GM ADVAN/BAG ONE (22:33)
[2018-07-23] MEDS ORDERED: methylPREDNISolone SOD 40 MG* 1 ML VIAL IV SCH (23:00)
[2018-07-23] MEDS ORDERED: Spiriva Inhaler DEVICE* 1 EACH DEVICE INH SCH (23:00)
[2018-07-23 23:42] LABS: TSH (Thyroid Stimulating Horm) 1.17 mcIU/mL (0.34-5.60)
[2018-07-24] MEDS ORDERED: Acetaminophen TAB* 325 MG PO ONE (00:30)
[2018-07-24] MEDS ORDERED: NS 0.9% 250 ML* 250 ML ONE (00:47)
--- NOTE | 2018-07-24 00:58 | HP ---
Amended report to enter cosigning physician. HISTORY AND PHYSICAL: DATE OF ADMISSION: 07/23/18 PROVIDER: Namrata Calix NP ATTENDING PHYSICIAN: Dr. Jennifer Gonzales* (report dictated by Namrata Calix NP). PRIMARY CARE PROVIDER: Dr. Figueroa. CHIEF COMPLAINT: Shortness of breath. HISTORY OF PRESENT ILLNESS: Ms. Maldonado is a 67-year-old female with a past medical history of current tobacco abuse; COPD, on home O2 p.r.n.; hx of hypothyroidism; diastolic dysfunction; history of chronic lower extremity edema ; who presented to the emergency room with complaints of 2 to 3 days of cough, runny nose, possible fever, now with worsening shortness of breath. She reports she has a prescription for prednisone, which she takes p.r.n. and took 40 mg prednisone yesterday. Her primary care provider also started her on cefuroxime and has taken a total of 4 doses of 500 mg starting yesterday morning. She reports cough with mild sputum production, reporting green sputum. She denies chills, body ache, sore throat, nausea, vomiting, diarrhea, abdominal pain. Currently she feels better than when she arrived. at bedside The patient will be admitted to the hospitalist service for COPD exacerbation. PAST MEDICAL HISTORY: 1. COPD, on home O2 of 2 L p.r.n. 2. Diastolic dysfunction. 3. History of hypothyroidism. 4. Chronic lower extremity edema. PAST SURGICAL HISTORY: 1. Appendectomy. 2. Hysterectomy. HOME MEDICATIONS: 1. Spiriva 2 puffs INH daily. 2. Bumetanide 0.5 mg p.o. daily. 3. Cefuroxime 500 mg p.o. b.i.d. 4. Synthroid 25 mcg p.o. daily. 5. Prednisone 10 to 40 mg p.r.n. 6. Albuterol 2 puffs INH q.4 hours p.r.n. ALLERGIES: ASPIRIN, ERYTHROMYCIN, BEES, MOLDS. FAMILY HISTORY: Her father passed at age 80s of old age. Mother passed in her 40s secondary cervical cancer. SOCIAL HISTORY: The patient has 54-year smoking history, reporting she smokes approximately 5 to 10 cigarettes a day. Denies alcohol or recreational drug use. She lives with her who is her healthcare proxy. She is a full code. REVIEW OF SYSTEMS: A 14-point review of systems was performed. All the pertinent positives and negatives are mentioned in the history of present illness, otherwise are negative. PHYSICAL EXAMINATION GENERAL APPEARANCE: A 67-year-old chronically ill female, sitting up in the emergency department stretcher, in no acute distress. VITAL SIGNS: Temperature 98.7, heart rate 85, respirations 25, O2 sat 94% on Vapotherm of 40 L 50%. HEENT: Head is normocephalic, atraumatic. Pupils are equal and reactive to light. Oropharynx clear. Moist mucous membranes. NECK: Supple. LUNGS: Diminished bilaterally with expiratory wheezes noted. CARDIAC: S1, S2. Regular rate and rhythm. No murmur, rub, or gallop appreciated. ABDOMEN: Soft, nontender, nondistended. Normal bowel sounds throughout. EXTREMITIES: No clubbing, cyanosis, or edema noted. NEUROLOGIC: Alert and oriented x3. Cranial nerve II through XII are grossly intact. No focal deficits noted. PSYCH: Appropriate to situation. LABORATORY DATA AND DIAGNOSTIC STUDIES: Sodium 130, potassium 4.3, chloride 91 , carbon dioxide 31, anion gap 8, BUN 16, creatinine 0.64, glucose 93, lactic acid 1.7, calcium 9.1. Total bilirubin 0.50, AST 18, ALT 19, alkaline phosphatase 86. Troponin 0.00. C-reactive protein 8.75. BNP 35. Total protein 6.9, albumin 4.3. WBCs 10.9, RBC 4.55, HGB 13.6, HCT 41, MCV 89, MCH 30 , MCHC 34, RDW 14, platelet count 281. Influenza A and B negative. EKG: Sinus tachycardia with a rate of 142. Chest x-ray results pending. ASSESSMENT AND PLAN: Ms. Maldonado is a 67-year-old female with a past medical history of long-term current tobacco abuse; chronic obstructive pulmonary disease, on home O2 p.r.n.; history of hypothyroidism; history of diastolic dysfunction; and history of chronic lower extremity edema who presents to emergency department today with a report of 2 to 3 days of cough, runny nose, and worsening shortness of breath. 1. Acute Hypoxic Respiratory failure secondary to Chronic obstructive pulmonary disease exacerbation. The patient was started on Vapotherm for relief in the emergency department. She is feeling much better at this time. She was given 1 nebulizer in the emergency department with some relief. I will start her on Solu-Medrol and give her initially 125 mg IV then 40 mg IV q.8. We will give azithromycin 500 mg q.24 hours and ceftriaxone 1 g q.24 hours IV. Continue Spiriva. DuoNebs q.4 hours while awake. Flutter valve q.4 hours while awake. Try to obtain sputum culture and Gram stain. Chest x-ray report is still pending at time of dictation, however, there appears to be no noted pneumonia. She is influenza A and B negative. Smoking cessation. She will continue on the Vapotherm overnight with plan to wean off. She will need to be admitted to the ICU to continue on the Vapotherm. 2. History of hypothyroidism. Last TSH was noted in 2015 to be 0.31. It does not appear she is currently on any medication. We will add on TSH to ED labs. 3. Chronic lower extremity edema. Appears to be well controlled. The patient denies history of congestive heart failure in the past. Continue home dose bumetanide. 4. DVT prophylaxis. Heparin subcu. 5. Code status: Full code. The patient's is her healthcare proxy. 6. Hospital status: Inpatient. TIME SPENT: Approximately 60 minutes was spent on this admission. This case was discussed with Dr. Gonzales. NAMRATA CALIX, KIM [id number]/CPS #: [id number] MARIA D
[2018-07-24] MEDS: Albuterol/Ipratropium NEB.SOL* Albuterol 2.5 MG/Ipratropium 0.5 MG 3 ML INH SCH ×8 (01:00→21:56)
[2018-07-24] MEDS: Azithromycin IV(*) 500 MG in NS 0.9% 250 ML* 250 ML IVPB SCH (01:01)
[2018-07-24 04:57] LABS: ABS Basophils 0 10^3/ul (0-0.2); ABS Eosinophils 0 10^3/ul (0-0.6); ABS Lymphocytes 0.4 10^3/ul (1.0-4.8); ABS Monocytes 0.2 10^3/ul (0-0.8); ABS Neutrophils 10.7 10^3/ul (1.5-7.7); ABS Nucleated RBC 0 10^3/ul; Eosinophil % 0 %; Hematocrit 39 % (33-41); Hemoglobin 12.8 g/dL (12.0-16.0); Lymphocyte % 3.9 %; Mean Corpuscular HGB Conc 33 g/dL (31-36); Mean Corpuscular Hemoglobin 30 pg (27-31); Mean Corpuscular Volume 89 fL (80-97); Nucleated Red Blood Cells % 0; Platelet Count 260 10^3/uL (150-450); Red Blood Count 4.31 10^6 /uL (3.70-4.87); Red Cell Distribution Width 14 % (10.5-15); White Blood Count 11.3 10^3/uL (3.5-10.8)
[2018-07-24 05:13] LABS: BUN/Creatinine Ratio 25.9 (8-20); Calcium 8.8 mg/dL (8.6-10.3); EGFR African American 126.2 (>60); EGFR Non-African American 104.3 (>60); Potassium 4.8 mmol/L (3.5-5.0)
[2018-07-24] MEDS: methylPREDNISolone SOD 40 MG* 1 ML VIAL IV SCH ×3 (05:50→22:30)
[2018-07-24] MEDS: Heparin VIAL(*) 5000 UNITS/ML VIAL (FIVE THOUSAND) SUBCUT SCH ×3 (05:52→22:26)
--- NOTE | 2018-07-24 08:18 | PN ---
Subjective Date of Service: 07/24/18 Interval History: Ms. Maldonado notes that she started treatment outpatient with prednisone and antibiotics a couple of days ago. Despite this she continued to have worsening SOB and presented to the hospital yesterday. She does feel better now though she remains extremely short of breath and has significant hypoxia with any mobility - even to get out of bed to the bedside commode. She remains on the vapotherm. Objective Active Medications: Albuterol/Ipratropium (Duoneb (Albuterol 2.5 Mg/Ipratropium 0.5 Mg)) 1 neb INH [id number] AWAKE [facility] Bumetanide (Bumex Tab*) 0.5 mg PO DAILY [facility] Device (Tiotropium Inhaler Device*) 1 each INH .USE w/ SPIRIVA CAPS [facility] Heparin Sodium (Porcine) (Heparin Vial(*)) 5,000 units SUBCUT Q8HR [facility] Ceftriaxone Sodium 1 gm/ (Sodium Chloride) 50 mls @ 200 mls/hr IVPB Q24H [facility] Azithromycin 500 mg/ Sodium (Chloride) 250 mls @ 250 mls/hr IVPB Q24H [facility] Methylprednisolone Sodium Succinate (Solu-Medrol 40 Mg) 40 mg IV Q8H [facility] Tiotropium [place] (Spiriva Cap.Inh*) 1 cap INH DAILY [facility] Vital Signs: Temp Pulse Resp BP Pulse Ox 97.6 F 60 21 124/64 99 07/24/18 06:36 07/24/18 06:09 07/24/18 06:09 07/24/18 06:09 07/24/18 06:09 Oxygen Devices in Use Now: High Flow Heated Nasal Cannula Appearance: Elderly female sitting up in bed, SOB but able to speak in complete sentences, in NAD Eyes: No Scleral Icterus Ears/Nose/Mouth/Throat: Mucous Membranes Moist Neck: Trachea Midline Respiratory: Symmetrical Chest Expansion and Respiratory Effort, - - Diminished throughout with expiratory musical tones Cardiovascular: NL Sounds; No Murmurs; No JVD, No Edema Abdominal: NL Sounds; No Tenderness; No Distention Lymphatic: No Cervical Adenopathy Extremities: - - trace LE edema Skin: No Rash or Ulcers Neurological: Alert and Oriented x 3, NL Muscle Strength and Tone Nutrition: Taking PO's Result Diagrams: 07/24/18 04:52 07/24/18 04:52 Additional Lab and Data: . Assess/Plan/Problems-Billing Assessment: Ms. Maldonado is a 67 yo F with a PMH of COPD on home O2 prn and continued smoking who was admitted on 07/23/18 with SOB secondary to COPD exacerbation. - Patient Problems (1) Acute hypoxemic respiratory failure Comment: - Patient remains on high flow O2 at 30L - Secondary to COPD exacerbation. Chest xray without infiltrate, insignificant leukocytosis, CRP 8. (2) COPD exacerbation Comment: - Continue ceftriaxone and azithromycin - Continue solumedrol - Smoking cessation reinforced (3) Hyponatremia Comment: - Acute on chronic, Na 128 this AM - Asymptomatic, monitor (4) Leg edema Comment: - Continue home bumetadine - Echo 08/2017 with intact EF and no evidence of valvular dysfunction, suspect diastolic dysfunction though not noted on echo. (5) Hypothyroidism Comment: - Continue levothyroxine (6) DVT prophylaxis Comment: - Hep SQ. (7) Full code status Comment: Status and Disposition: Inpatient. Anticipate discharge to home when medically stable.
[2018-07-24] MEDS ORDERED: Tiotropium Respimt 2.5 mcg(NF) 1 PUFF MDI INH SCH (09:00)
[2018-07-24] MEDS ORDERED: Spiriva Inhaler DEVICE* 1 EACH DEVICE INH SCH (09:00)
[2018-07-24] MEDS ORDERED: Tiotropium CAP.INH* CAP.INH/18 MCG (USE ORDER SET !) INH SCH (09:00)
[2018-07-24] MEDS: Bumetanide TAB* 1 MG PO SCH (09:31)
[2018-07-24] MEDS: Mometasone/Formoter 200/5 MDI INH SCH ×2 (10:28→19:46)
[2018-07-24] MEDS: Levothyroxine TAB* 25 MCG TAB PO SCH (10:28)
[2018-07-24] MEDS: Tiotropium Respimt 2.5 mcg(NF) 1 PUFF MDI INH SCH ×2 (14:15→19:47)
[2018-07-24] MEDS ORDERED: Nicotine Inhaler* 10 MG AMP INH PRN (14:38)
[2018-07-24 17:15] LABS: Urine Appearance Clear; Urine Bilirubin Negative (Negative); Urine Blood Negative (Negative); Urine Color Yellow; Urine Glucose 1+(50 mg/dL) (Negative); Urine Ketones Negative (Negative); Urine Nitrite Negative (Negative); Urine Protein Negative (Negative); Urine Urobilinogen Negative (Negative)
[2018-07-24] MEDS: Mouth Piece, Nicotine* 1 EACH CARTRIDGE INH PRN (20:16)
[2018-07-24] MEDS ORDERED: cefTRIAXone(*) 1 GM in NS 0.9% 50 ML* 50 ML IVPB SCH (23:00)
[2018-07-25] MEDS: Azithromycin IV(*) 500 MG in NS 0.9% 250 ML* 250 ML IVPB SCH (00:58)
[2018-07-25] MEDS: Albuterol/Ipratropium NEB.SOL* Albuterol 2.5 MG/Ipratropium 0.5 MG 3 ML INH SCH ×6 (03:23→23:36)
[2018-07-25] MEDS: Heparin VIAL(*) 5000 UNITS/ML VIAL (FIVE THOUSAND) SUBCUT SCH ×3 (05:40→20:27)
[2018-07-25] MEDS: methylPREDNISolone SOD 40 MG* 1 ML VIAL IV SCH ×3 (05:40→21:59)
[2018-07-25] MEDS ORDERED: Levothyroxine TAB* 25 MCG TAB PO SCH (06:00)
[2018-07-25] MEDS: PTO: Tiotropium Respimt 2.5 mcg(NF) 1 PUFF MDI INH SCH (07:27)
--- NOTE | 2018-07-25 08:17 | PN ---
Subjective Date of Service: 07/25/18 Interval History: Nursing staff report that patient continues to desaturate with activity. They also note that significant effort was made towards educating patient about her diagnosis of COPD and the effect that continued smoking will have on her worsening prognosis. Patient remains defensive and in denial about her situation. Ms. maldonado first states that she does not feel better at all but then does confirm that she was much more SOB on arrival. She notes significant dyspnea even with using the bedpan. She is frustrated that she is not better yet. Objective Active Medications: Albuterol/Ipratropium (Duoneb (Albuterol 2.5 Mg/Ipratropium 0.5 Mg)) 1 neb INH [id number] AWAKE [facility] Bumetanide (Bumex Tab*) 0.5 mg PO DAILY [facility] Device (Nicotine Mouth Piece*) 1 each INH .USE W/ CARTRIDGE PRN Heparin Sodium (Porcine) (Heparin Vial(*)) 5,000 units SUBCUT Q8HR [facility] Azithromycin 500 mg/ Sodium (Chloride) 250 mls @ 250 mls/hr IVPB Q24H [facility] Ceftriaxone Sodium 1 gm/ (Sodium Chloride) 50 mls @ 200 mls/hr IVPB Q24HR@2300 [facility] Levothyroxine Sodium (Synthroid Tab*) 25 mcg PO DAILY [facility] Methylprednisolone Sodium Succinate (Solu-Medrol 40 Mg) 40 mg IV Q8H [facility] Mometasone Furoate/Formoterol Fumar (Dulera 200/5 Mdi*) 2 puff INH BID [facility] Nicotine (Nicotine Inhaler*) 10 mg INH Q2H PRN Tiotropium [place] (Spiriva Respimat 2.5 Mcg(Nf)) 2 puff INH DAILY [facility] Vital Signs - 8 hr 07/25/18 07/25/18 07/25/18 00:30 01:00 01:01 Temperature Pulse Rate 65 77 82 Respiratory 26 24 21 Rate Blood Pressure 123/69 135/69 (mmHg) O2 Sat by Pulse 96 93 Oximetry 07/25/18 07/25/18 07/25/18 01:31 02:00 02:01 Temperature Pulse Rate 94 71 70 Respiratory 16 20 21 Rate Blood Pressure 124/72 147/81 (mmHg) O2 Sat by Pulse 94 95 96 Oximetry 07/25/18 07/25/18 07/25/18 02:32 03:00 03:01 Temperature Pulse Rate 75 65 65 Respiratory 23 21 19 Rate Blood Pressure 127/58 127/71 (mmHg) O2 Sat by Pulse 96 Oximetry 07/25/18 07/25/18 07/25/18 03:35 04:00 05:00 Temperature 97.4 F Pulse Rate 58 77 Respiratory 18 18 Rate Blood Pressure 132/67 134/75 (mmHg) O2 Sat by Pulse 95 92 Oximetry 07/25/18 07/25/18 07/25/18 05:03 06:00 07:00 Temperature Pulse Rate 68 74 60 Respiratory 20 22 20 Rate Blood Pressure 124/88 141/72 (mmHg) O2 Sat by Pulse 96 95 89 Oximetry 07/25/18 07:01 Temperature Pulse Rate 59 Respiratory 19 Rate Blood Pressure (mmHg) O2 Sat by Pulse 95 Oximetry Oxygen Devices in Use Now: High Flow Heated Nasal Cannula Appearance: Female lying in bed in NAD Eyes: No Scleral Icterus Ears/Nose/Mouth/Throat: Mucous Membranes Moist Respiratory: Symmetrical Chest Expansion and Respiratory Effort, Clear to Auscultation Cardiovascular: NL Sounds; No Murmurs; No JVD, No Edema Abdominal: NL Sounds; No Tenderness; No Distention Extremities: No Edema Skin: No Rash or Ulcers Neurological: Alert and Oriented x 3, NL Muscle Strength and Tone Nutrition: Taking PO's Result Diagrams: 07/24/18 04:52 07/25/18 10:45 Additional Lab and Data: . Microbiology and Other Data: Microbiology 07/24/18 18:39 Nasal Screen MRSA (PCR) - Final Nasal Mrsa Not Detected Assess/Plan/Problems-Billing Assessment: Ms. Maldonado is a 67 yo F with a PMH of COPD on home O2 prn and continued smoking who was admitted on 07/23/18 with SOB secondary to COPD exacerbation. - Patient Problems (1) Acute hypoxemic respiratory failure Comment: - Patient remains on high flow O2 at 25L and 60% O2 - Secondary to COPD exacerbation. Chest xray without infiltrate, insignificant leukocytosis, CRP 8. (2) COPD exacerbation Comment: - Continue azithromycin only for atypicals - Continue solumedrol - Smoking cessation reinforced (3) Hyponatremia Comment: - Acute on chronic, Na 128 this AM - Asymptomatic, monitor (4) Leg edema Comment: - Stable. - Continue home bumetadine - Echo 08/2017 with intact EF and no evidence of valvular dysfunction, suspect diastolic dysfunction with chronic CHF though not noted on echo. (5) Hypothyroidism Comment: - Continue levothyroxine (6) DVT prophylaxis Comment: - Hep SQ. (7) Full code status Comment: Status and Disposition: Inpatient. Anticipate discharge to home when medically stable.
[2018-07-25] MEDS: Mometasone/Formoter 200/5 MDI INH SCH ×2 (08:31→20:38)
[2018-07-25] MEDS: Levothyroxine TAB* 25 MCG TAB PO SCH (09:53)
[2018-07-25] MEDS: Bumetanide TAB* 1 MG PO SCH (09:55)
[2018-07-25 11:13] LABS: BUN/Creatinine Ratio 27.1 (8-20); Calcium 8.9 mg/dL (8.6-10.3); EGFR African American 123.8 (>60); EGFR Non-African American 102.3 (>60)
[2018-07-25 11:14] LABS: Potassium 5.1 mmol/L (3.5-5.0)
[2018-07-25] MEDS: Acetaminophen TAB* 325 MG PO PRN (11:44)
[2018-07-25] MEDS ORDERED: NS 0.9% 1000 ML** 1,000 ML IV SCH (13:30)
[2018-07-25] MEDS ORDERED: Calcium Carbonate CHEW TAB* 500 MG (TUMS) PO PRN (23:09)
[2018-07-26] MEDS: Azithromycin IV(*) 500 MG in NS 0.9% 250 ML* 250 ML IVPB SCH (00:48)
[2018-07-26] MEDS: Albuterol/Ipratropium NEB.SOL* Albuterol 2.5 MG/Ipratropium 0.5 MG 3 ML INH PRN (01:12)
[2018-07-26] MEDS: Albuterol/Ipratropium NEB.SOL* Albuterol 2.5 MG/Ipratropium 0.5 MG 3 ML INH SCH ×7 (04:30→22:51)
[2018-07-26] MEDS: Heparin VIAL(*) 5000 UNITS/ML VIAL (FIVE THOUSAND) SUBCUT SCH ×3 (05:06→22:06)
[2018-07-26] MEDS: methylPREDNISolone SOD 40 MG* 1 ML VIAL IV SCH (05:18)
[2018-07-26 05:45] LABS: BUN/Creatinine Ratio 30.6 (8-20); Calcium 8.7 mg/dL (8.6-10.3); EGFR African American 116.9 (>60); EGFR Non-African American 96.6 (>60); Potassium 4.8 mmol/L (3.5-5.0)
[2018-07-26] MEDS: Levothyroxine TAB* 25 MCG TAB PO SCH (07:42)
[2018-07-26] MEDS: Mometasone/Formoter 200/5 MDI INH SCH ×2 (08:59→19:59)
--- NOTE | 2018-07-26 08:59 | PN ---
Subjective Date of Service: 07/26/18 Interval History: No subj change. COLLIER with minimal effort. Frequent cough, scant sputum, light colored. Objective Active Medications: Acetaminophen (Tylenol Tab*) 650 mg PO Q6H PRN PRN Reason: PAIN Last Admin: 07/25/18 11:44 Dose: 650 mg Albuterol/Ipratropium (Duoneb (Albuterol 2.5 Mg/Ipratropium 0.5 Mg)) 1 neb INH [id number] AWAKE [facility] Last Admin: 07/26/18 08:27 Dose: Not Given Albuterol/Ipratropium (Duoneb (Albuterol 2.5 Mg/Ipratropium 0.5 Mg)) 1 neb INH Q4H PRN PRN Reason: SOB/WHEEZING Last Admin: 07/26/18 01:12 Dose: 1 neb Calcium Carbonate (Tums*) 500 mg PO Q4H PRN PRN Reason: INDIGESTION Last Admin: 07/26/18 01:01 Dose: 500 mg Device (Nicotine Mouth Piece*) 1 each INH .USE W/ CARTRIDGE PRN PRN Reason: WITHDRAWAL - NICOTINE Last Admin: 07/24/18 20:16 Dose: 1 each Guaifenesin (Mucinex*) 1,200 mg PO BID [facility] Heparin Sodium (Porcine) (Heparin Vial(*)) 5,000 units SUBCUT Q8HR [facility] Last Admin: 07/26/18 05:06 Dose: Not Given Azithromycin 500 mg/ Sodium (Chloride) 250 mls @ 250 mls/hr IVPB Q24H [facility] Last Admin: 07/26/18 00:48 Dose: 250 mls/hr Levothyroxine Sodium (Synthroid Tab*) 25 mcg PO DAILY [facility] Last Admin: 07/26/18 07:42 Dose: 25 mcg Methylprednisolone Acetate (Depo-Medrol 80 Mg/1ml Vial*) 60 mg IM Q12H [facility] Mometasone Furoate/Formoterol Fumar (Dulera 200/5 Mdi*) 2 puff INH BID [facility] Last Admin: 07/25/18 20:38 Dose: 2 puff Nicotine (Nicotine Inhaler*) 10 mg INH Q2H PRN PRN Reason: CRAVING Tiotropium [place] (Spiriva Respimat 2.5 Mcg(Nf)) 2 puff INH DAILY [facility] Last Admin: 07/25/18 07:27 Dose: 2 puff Vital Signs - 8 hr 07/26/18 07/26/18 07/26/18 01:01 01:12 02:00 Temperature Pulse Rate 83 72 68 Respiratory 20 24 32 Rate Blood Pressure 147/100 151/103 (mmHg) O2 Sat by Pulse 97 95 98 Oximetry 07/26/18 07/26/18 07/26/18 02:01 03:00 03:30 Temperature Pulse Rate 58 Respiratory 29 27 16 Rate Blood Pressure 141/88 (mmHg) O2 Sat by Pulse 93 Oximetry 07/26/18 07/26/18 07/26/18 03:42 04:00 05:00 Temperature 97.0 F Pulse Rate 55 71 Respiratory 18 24 Rate Blood Pressure 143/79 134/92 (mmHg) O2 Sat by Pulse 96 89 Oximetry 07/26/18 07/26/18 07/26/18 06:00 06:02 07:00 Temperature Pulse Rate 70 62 70 Respiratory 20 21 19 Rate Blood Pressure 136/93 (mmHg) O2 Sat by Pulse 99 100 Oximetry 07/26/18 07/26/18 07:01 07:45 Temperature 97.6 F Pulse Rate 69 Respiratory 20 Rate Blood Pressure 158/76 (mmHg) O2 Sat by Pulse 95 Oximetry Oxygen Devices in Use Now: High Flow Heated Nasal Cannula Appearance: Alert, sitting up in ICU bed. In fair spirits. Frequent cough during my visit. Respiratory: Symmetrical Chest Expansion and Respiratory Effort, Clear to Percussion, - - mod wheezing BL Cardiovascular: NL Sounds; No Murmurs; No JVD, RRR, No Edema, - Extremities: No Edema, No Clubbing, Cyanosis, - Skin: No Rash or Ulcers, No Nodules or Sclerosis, - Neurological: Alert and Oriented x 3, NL Sensation Result Diagrams: 07/24/18 04:52 07/26/18 05:20 Additional Lab and Data: . Microbiology and Other Data: Microbiology 07/24/18 18:39 Nasal Screen MRSA (PCR) - Final Nasal Mrsa Not Detected Assess/Plan/Problems-Billing Assessment: Ms. Maldonado is a 67 yo F with a PMH of COPD on home O2 prn and continued smoking who was admitted on 07/23/18 with SOB secondary to COPD exacerbation. - Patient Problems (1) COPD exacerbation Current Visit: No Status: Acute Code(s): J44.1 - CHRONIC OBSTRUCTIVE PULMONARY DISEASE W (ACUTE) EXACERBATION SNOMED Code(s): 150149016 Comment: - Continue azithromycin - Continue solumedrol, change to 60 mg q 12 hr 07/26. (2) Hypothyroidism Current Visit: Yes Status: Acute Code(s): E03.9 - HYPOTHYROIDISM, UNSPECIFIED SNOMED Code(s): 64893872 Comment: TSH wnl 07/23/18. - Continue levothyroxine (3) Hyponatremia Current Visit: No Status: Acute Code(s): E87.1 - HYPO-OSMOLALITY AND HYPONATREMIA SNOMED Code(s): 71733796 Comment: Na 131 07/26/18. (4) Leg edema Current Visit: No Status: Acute Code(s): R60.0 - LOCALIZED EDEMA SNOMED Code(s): 748945177 Comment: Improved - Continue home bumetadine - Echo 08/2017 with intact EF and no evidence of valvular dysfunction. Note BNP 35 on 07/23/18. Status and Disposition: Inpatient. Anticipate discharge to home when medically stable.
[2018-07-26] MEDS ORDERED: methylPREDNISolone ACETATE 80* 80 MG/ML 1 ML VIAL IM SCH ×2 (09:00→21:00)
[2018-07-26] MEDS: guaiFENesin ER TAB 600 MG PO SCH ×2 (09:34→20:17)
[2018-07-26] MEDS: PTO: Tiotropium Respimt 2.5 mcg(NF) 1 PUFF MDI INH SCH (11:07)
[2018-07-26] MEDS: methylPREDNISolone 125 MG* 2 ML VIAL IV SCH (13:10)
[2018-07-26] MEDS: Acetaminophen TAB* 325 MG PO PRN (20:16)
[2018-07-27] MEDS: Azithromycin IV(*) 500 MG in NS 0.9% 250 ML* 250 ML IVPB SCH (00:15)
[2018-07-27] MEDS: methylPREDNISolone 125 MG* 2 ML VIAL IV SCH ×2 (01:34→11:08)
[2018-07-27] MEDS: Albuterol/Ipratropium NEB.SOL* Albuterol 2.5 MG/Ipratropium 0.5 MG 3 ML INH SCH ×5 (02:44→19:34)
[2018-07-27] MEDS: Heparin VIAL(*) 5000 UNITS/ML VIAL (FIVE THOUSAND) SUBCUT SCH ×3 (05:21→21:11)
[2018-07-27] MEDS: Acetaminophen TAB* 325 MG PO PRN ×2 (06:59→19:49)
[2018-07-27] MEDS: Levothyroxine TAB* 25 MCG TAB PO SCH (06:59)
[2018-07-27] MEDS: Mometasone/Formoter 200/5 MDI INH SCH ×2 (07:13→21:03)
[2018-07-27] MEDS: guaiFENesin ER TAB 600 MG PO SCH ×3 (10:40→21:09)
[2018-07-27] MEDS: PTO: Tiotropium Respimt 2.5 mcg(NF) 1 PUFF MDI INH SCH (10:40)
[2018-07-27] MEDS ORDERED: Al Hydrox/Mg Hydrox/Simet LIQ* 30 ML UDC PO ONE (10:54)
[2018-07-27] MEDS: Pantoprazole TAB * 40 MG TAB PO SCH (11:07)
--- NOTE | 2018-07-27 14:39 | PN ---
Subjective Date of Service: 07/27/18 Interval History: Patient seen this morning in the ICU, was on 25 liter High flow O2, complaining of increase indigestions. No events overnight. she was titrated down to 2 Liters NC early afternoon. Will re-assess late afternoon if she remains stable on 2 Liter NC we may transfer out of the ICU Family History: Unchanged from Admission Objective Active Medications: Acetaminophen (Tylenol Tab*) 650 mg PO Q6H PRN PRN Reason: PAIN Last Admin: 07/27/18 06:59 Dose: 650 mg Albuterol/Ipratropium (Duoneb (Albuterol 2.5 Mg/Ipratropium 0.5 Mg)) 1 neb INH [id number] AWAKE [facility] Last Admin: 07/27/18 10:52 Dose: 1 neb Albuterol/Ipratropium (Duoneb (Albuterol 2.5 Mg/Ipratropium 0.5 Mg)) 1 neb INH Q4H PRN PRN Reason: SOB/WHEEZING Last Admin: 07/26/18 01:12 Dose: 1 neb Calcium Carbonate (Tums*) 500 mg PO Q4H PRN PRN Reason: INDIGESTION Last Admin: 07/26/18 01:01 Dose: 500 mg Device (Nicotine Mouth Piece*) 1 each INH .USE W/ CARTRIDGE PRN PRN Reason: WITHDRAWAL - NICOTINE Last Admin: 07/24/18 20:16 Dose: 1 each Guaifenesin (Mucinex*) 1,200 mg PO BID [facility] Last Admin: 07/27/18 11:31 Dose: 1,200 mg Heparin Sodium (Porcine) (Heparin Vial(*)) 5,000 units SUBCUT Q8HR [facility] Last Admin: 07/27/18 12:36 Dose: Not Given Azithromycin 500 mg/ Sodium (Chloride) 250 mls @ 250 mls/hr IVPB Q24H [facility] Last Admin: 07/27/18 00:15 Dose: 250 mls/hr Levothyroxine Sodium (Synthroid Tab*) 25 mcg PO DAILY [facility] Last Admin: 07/27/18 06:59 Dose: 25 mcg Methylprednisolone Sodium Succinate (Solu-Medrol 125mg *) 60 mg IV Q12H [facility] Last Admin: 07/27/18 11:08 Dose: 60 mg Mometasone Furoate/Formoterol Fumar (Dulera 200/5 Mdi*) 2 puff INH BID [facility] Last Admin: 07/27/18 07:13 Dose: 2 puff Nicotine (Nicotine Inhaler*) 10 mg INH Q2H PRN PRN Reason: CRAVING Pantoprazole Sodium (Protonix Tab*) 40 mg PO DAILY [facility] Last Admin: 07/27/18 11:07 Dose: 40 mg Tiotropium [place] (Spiriva Respimat 2.5 Mcg(Nf)) 2 puff INH DAILY [facility] Last Admin: 07/27/18 10:40 Dose: Not Given Vital Signs - 8 hr 07/27/18 07/27/18 07/27/18 07:00 07:01 07:16 Temperature Pulse Rate 65 Respiratory 23 19 19 Rate Blood Pressure (mmHg) O2 Sat by Pulse 95 Oximetry 07/27/18 07/27/18 07/27/18 07:21 08:00 08:01 Temperature 97.6 F Pulse Rate 81 Respiratory 21 26 18 Rate Blood Pressure 146/76 112/79 (mmHg) O2 Sat by Pulse 95 Oximetry 07/27/18 07/27/18 07/27/18 09:00 09:01 10:00 Temperature Pulse Rate 87 68 Respiratory 20 20 19 Rate Blood Pressure (mmHg) O2 Sat by Pulse 99 97 Oximetry 07/27/18 07/27/18 07/27/18 10:52 11:00 12:00 Temperature 98.6 F Pulse Rate 67 63 59 Respiratory 18 21 19 Rate Blood Pressure (mmHg) O2 Sat by Pulse 98 95 95 Oximetry 07/27/18 07/27/18 13:00 14:00 Temperature Pulse Rate 67 69 Respiratory 23 21 Rate Blood Pressure (mmHg) O2 Sat by Pulse 97 99 Oximetry Oxygen Devices in Use Now: Nasal Cannula Appearance: Awake, Alert No acute distress. She was on High flow O2 when I assess her earlier Eyes: No Scleral Icterus, - - EOMI Ears/Nose/Mouth/Throat: Clear Oropharnyx, Mucous Membranes Moist Neck: NL Appearance and Movements; NL JVP, Trachea Midline Respiratory: - - Coarse rhonchi with expiratory wheezes Cardiovascular: NL Sounds; No Murmurs; No JVD Abdominal: NL Sounds; No Tenderness; No Distention Extremities: No Edema, - - Clubbing Neurological: Alert and Oriented x 3 Result Diagrams: 07/24/18 04:52 07/26/18 05:20 Additional Lab and Data: . Microbiology and Other Data: Microbiology 07/24/18 18:39 Nasal Screen MRSA (PCR) - Final Nasal Mrsa Not Detected Assess/Plan/Problems-Billing Assessment: Ms. Maldonado is a 67 yo F with a PMH of COPD on home O2 prn and continued smoking who was admitted on 07/23/18 with SOB secondary to COPD exacerbation. - Patient Problems (1) Acute hypoxemic respiratory failure Current Visit: No Status: Acute Code(s): J96.01 - ACUTE RESPIRATORY FAILURE WITH HYPOXIA SNOMED Code(s): 479928581 Comment: - Patient remains on high flow O2 at 25L and 60% O2; Will try to taper to Nasal canula today. - Secondary to COPD exacerbation. Chest xray without infiltrate, Continue COPD treatment (2) COPD exacerbation Current Visit: No Status: Acute Code(s): J44.1 - CHRONIC OBSTRUCTIVE PULMONARY DISEASE W (ACUTE) EXACERBATION SNOMED Code(s): 651795526 Comment: - Continue azithromycin 250 Mg IV daily #07/23 - Continue solumedrol, changed to 60 mg q 12 hr 07/26. Will probably change to PO prednisone tomorrow 07/28/18 - continue Duoneb and albuterol PRN, Mucinex 1200 mg bid, and Spiriva (3) Hypothyroidism Current Visit: Yes Status: Acute Code(s): E03.9 - HYPOTHYROIDISM, UNSPECIFIED SNOMED Code(s): 11339880 Comment: TSH wnl 07/23/18. - Continue levothyroxine 25 mcg daily (4) Hyponatremia Current Visit: No Status: Acute Code(s): E87.1 - HYPO-OSMOLALITY AND HYPONATREMIA SNOMED Code(s): 12607334 Comment: - Na+ 131 07/26/18. no labs ordered for today. Will recheck BMP in am (5) Leg edema Current Visit: No Status: Acute Code(s): R60.0 - LOCALIZED EDEMA SNOMED Code(s): 995777477 Comment: - home diuretic on hold or now - Echo 08/2017 with intact EF and no evidence of valvular dysfunction. Note BNP 35 on 07/23/18. (6) DVT prophylaxis Current Visit: No Status: Acute Code(s): UXO7430 - SNOMED Code(s): 820431603 Comment: - Hep SQ. Status and Disposition: Inpatient. Anticipate discharge to home when medically stable.
[2018-07-28] MEDS: Albuterol/Ipratropium NEB.SOL* Albuterol 2.5 MG/Ipratropium 0.5 MG 3 ML INH PRN (00:46)
[2018-07-28] MEDS: methylPREDNISolone 125 MG* 2 ML VIAL IV SCH (00:48)
[2018-07-28] MEDS: Azithromycin IV(*) 500 MG in NS 0.9% 250 ML* 250 ML IVPB SCH (00:49)
[2018-07-28] MEDS: Albuterol/Ipratropium NEB.SOL* Albuterol 2.5 MG/Ipratropium 0.5 MG 3 ML INH SCH ×4 (00:52→19:17)
[2018-07-28] MEDS: Heparin VIAL(*) 5000 UNITS/ML VIAL (FIVE THOUSAND) SUBCUT SCH ×3 (06:01→21:12)
[2018-07-28 06:19] LABS: ABS Basophils 0.1 10^3/ul (0-0.2); ABS Eosinophils 0 10^3/ul (0-0.6); ABS Lymphocytes 0.5 10^3/ul (1.0-4.8); ABS Monocytes 0.8 10^3/ul (0-0.8); ABS Neutrophils 12.3 10^3/ul (1.5-7.7); ABS Nucleated RBC 0 10^3/ul; Eosinophil % 0 %; Hematocrit 36 % (33-41); Hemoglobin 12.1 g/dL (12.0-16.0); Lymphocyte % 3.9 %; Mean Corpuscular HGB Conc 34 g/dL (31-36); Mean Corpuscular Hemoglobin 30 pg (27-31); Mean Corpuscular Volume 90 fL (80-97); Mean Platelet Volume 7.3 fL (7.4-10.4); Nucleated Red Blood Cells % 0.1; Platelet Count 263 10^3/uL (150-450); Red Blood Count 4.02 10^6 /uL (3.70-4.87); Red Cell Distribution Width 14 % (10.5-15); White Blood Count 13.7 10^3/uL (3.5-10.8)
[2018-07-28 06:35] LABS: BUN/Creatinine Ratio 38.9 (8-20); Calcium 8.7 mg/dL (8.6-10.3); EGFR African American 137.1 (>60); EGFR Non-African American 113.3 (>60); Magnesium 2.2 mg/dL (1.9-2.7); Phosphorus 2.7 mg/dL (2.5-5.0); Potassium 4.7 mmol/L (3.5-5.0)
[2018-07-28] MEDS: Mometasone/Formoter 200/5 MDI INH SCH ×2 (07:49→19:21)
[2018-07-28] MEDS: PTO: Tiotropium Respimt 2.5 mcg(NF) 1 PUFF MDI INH SCH (07:49)
[2018-07-28] MEDS: guaiFENesin ER TAB 600 MG PO SCH (08:52)
[2018-07-28] MEDS: Pantoprazole TAB * 40 MG TAB PO SCH (08:53)
[2018-07-28] MEDS: predniSONE TAB* 20 MG PO SCH (08:53)
[2018-07-28] MEDS: Levothyroxine TAB* 25 MCG TAB PO SCH (08:54)
[2018-07-28] MEDS: Levofloxacin TAB* 750 MG PO SCH (12:00)
--- NOTE | 2018-07-28 15:50 | PN ---
Subjective Date of Service: 07/28/18 Interval History: Doing fairly well. she is on 3 liters NC. she is complaining about mucinex stating it hurts her chest when she takes. Now she also report increase phlem production and change in color to green. She lost her IV site and did not want to have another IV Family History: Unchanged from Admission Objective Active Medications: Acetaminophen (Tylenol Tab*) 650 mg PO Q6H PRN PRN Reason: PAIN Last Admin: 07/27/18 19:49 Dose: 650 mg Albuterol/Ipratropium (Duoneb (Albuterol 2.5 Mg/Ipratropium 0.5 Mg)) 1 neb INH Q4H PRN PRN Reason: SOB/WHEEZING Last Admin: 07/28/18 00:46 Dose: 1 neb Albuterol/Ipratropium (Duoneb (Albuterol 2.5 Mg/Ipratropium 0.5 Mg)) 1 neb INH [id number] AWAKE [facility] Last Admin: 07/28/18 12:52 Dose: 1 neb Calcium Carbonate (Tums*) 500 mg PO Q4H PRN PRN Reason: INDIGESTION Last Admin: 07/26/18 01:01 Dose: 500 mg Device (Nicotine Mouth Piece*) 1 each INH .USE W/ CARTRIDGE PRN PRN Reason: WITHDRAWAL - NICOTINE Last Admin: 07/24/18 20:16 Dose: 1 each Heparin Sodium (Porcine) (Heparin Vial(*)) 5,000 units SUBCUT Q8HR [facility] Last Admin: 07/28/18 13:43 Dose: Not Given Levofloxacin (Levaquin Tab*) 750 mg PO DAILY [facility] Last Admin: 07/28/18 12:00 Dose: 750 mg Levothyroxine Sodium (Synthroid Tab*) 25 mcg PO DAILY [facility] Last Admin: 07/28/18 08:54 Dose: 25 mcg Mometasone Furoate/Formoterol Fumar (Dulera 200/5 Mdi*) 2 puff INH BID [facility] Last Admin: 07/28/18 07:49 Dose: 2 puff Nicotine (Nicotine Inhaler*) 10 mg INH Q2H PRN PRN Reason: CRAVING Pantoprazole Sodium (Protonix Tab*) 40 mg PO DAILY [facility] Last Admin: 07/28/18 08:53 Dose: Not Given Prednisone (Deltasone Tab*) 60 mg PO DAILY [facility] Last Admin: 07/28/18 08:53 Dose: 60 mg Tiotropium [place] (Spiriva Respimat 2.5 Mcg(Nf)) 2 puff INH DAILY [facility] Last Admin: 07/28/18 07:49 Dose: 2 puff Vital Signs - 8 hr 07/28/18 07/28/18 07/28/18 07:52 08:00 12:52 Pulse Rate 78 98 Respiratory 18 18 18 Rate O2 Sat by Pulse 99 95 99 Oximetry Oxygen Devices in Use Now: OxyMask Appearance: awake. alert. no distress Eyes: No Scleral Icterus, PERRLA, - - EOMI Ears/Nose/Mouth/Throat: NL Teeth, Lips, Gums, Mucous Membranes Moist Neck: NL Appearance and Movements; NL JVP Respiratory: Symmetrical Chest Expansion and Respiratory Effort, - - coarse rhonchi, diminised air flow. expiratory wheezing Cardiovascular: NL Sounds; No Murmurs; No JVD, No Edema Abdominal: NL Sounds; No Tenderness; No Distention Lymphatic: No Cervical Adenopathy Extremities: No Edema Skin: No Rash or Ulcers Neurological: Alert and Oriented x 3 Result Diagrams: 07/28/18 06:04 07/28/18 06:04 Additional Lab and Data: . Microbiology and Other Data: Microbiology 07/24/18 18:39 Nasal Screen MRSA (PCR) - Final Nasal Mrsa Not Detected Assess/Plan/Problems-Billing Assessment: Ms. Maldonado is a 67 yo F with a PMH of COPD on home O2 prn and continued smoking who was admitted on 07/23/18 with SOB secondary to COPD exacerbation. - Patient Problems (1) Acute hypoxemic respiratory failure Current Visit: No Status: Acute Code(s): J96.01 - ACUTE RESPIRATORY FAILURE WITH HYPOXIA SNOMED Code(s): 370876326 Comment: - Patient on 3 liters O2 - Secondary to COPD exacerbation. Chest xray without infiltrate, Continue COPD treatment - Will place her on Levaquin 750 mg Daily and will follow up on CXR (2) COPD exacerbation Current Visit: No Status: Acute Code(s): J44.1 - CHRONIC OBSTRUCTIVE PULMONARY DISEASE W (ACUTE) EXACERBATION SNOMED Code(s): 386299813 Comment: - completed her azithromycin 250 Mg IV daily #5/5 on 07/28/18 - Continue steroid will change to po prednisone - continue Duoneb and albuterol PRN, Mucinex 1200 mg bid, and Spiriva - Added levaquin 750 mg daily po. Will check CXR in am (3) Hypothyroidism Current Visit: Yes Status: Acute Code(s): E03.9 - HYPOTHYROIDISM, UNSPECIFIED SNOMED Code(s): 78216222 Comment: TSH wnl 07/23/18. - Continue levothyroxine 25 mcg daily (4) Hyponatremia Current Visit: No Status: Acute Code(s): E87.1 - HYPO-OSMOLALITY AND HYPONATREMIA SNOMED Code(s): 26745804 Comment: - Na+ 133 07/28/18. (5) Leg edema Current Visit: No Status: Acute Code(s): R60.0 - LOCALIZED EDEMA SNOMED Code(s): 482608878 Comment: - home diuretic on hold or now - Echo 08/2017 with intact EF and no evidence of valvular dysfunction. Note BNP 35 on 07/23/18. (6) DVT prophylaxis Current Visit: No Status: Acute Code(s): GDS2044 - SNOMED Code(s): 563256448 Comment: - Hep SQ. Status and Disposition: Inpatient. Anticipate discharge to home when medically stable.
[2018-07-28] MEDS: Mouth Piece, Nicotine* 1 EACH CARTRIDGE INH PRN (18:30)
[2018-07-28] MEDS ORDERED: Albuterol 2.5 MG/3 ML NEB.SOL* (0.083%) INH ONE (19:33)
[2018-07-29] MEDS: Albuterol 2.5 MG/3 ML NEB.SOL* (0.083%) INH SCH ×3 (05:19→19:40)
[2018-07-29] MEDS: Heparin VIAL(*) 5000 UNITS/ML VIAL (FIVE THOUSAND) SUBCUT SCH ×3 (05:39→20:42)
[2018-07-29] MEDS: Albuterol/Ipratropium NEB.SOL* Albuterol 2.5 MG/Ipratropium 0.5 MG 3 ML INH SCH (07:29)
[2018-07-29] MEDS: PTO: Tiotropium Respimt 2.5 mcg(NF) 1 PUFF MDI INH SCH (08:43)
[2018-07-29] MEDS: Mometasone/Formoter 200/5 MDI INH SCH ×2 (08:43→19:40)
[2018-07-29] MEDS: Pantoprazole TAB * 40 MG TAB PO SCH (10:11)
[2018-07-29] MEDS: predniSONE TAB* 20 MG PO SCH (10:11)
[2018-07-29] MEDS: Levofloxacin TAB* 750 MG PO SCH (10:11)
[2018-07-29] MEDS: Levothyroxine TAB* 25 MCG TAB PO SCH (10:12)
[2018-07-29] MEDS: Acetaminophen TAB* 325 MG PO PRN (12:35)
--- NOTE | 2018-07-29 14:58 | PN ---
Subjective Date of Service: 07/29/18 Interval History: Today, her complains is about the duoneb treatment making her breathing much worse. She declined it as it cause her pain and choking. She only using albuterol and not duoneb. she remains on 3 liters oxygen. She has not had mucinex as per her request however she was not able to provide sputum specimen still. otherwise no acute events, she short of breath. She is taking all PO and if she remains stable by am she may be discharged home in am Family History: Unchanged from Admission Past Medical History: Unchanged from Admission Objective Active Medications: Acetaminophen (Tylenol Tab*) 650 mg PO Q6H PRN PRN Reason: PAIN Last Admin: 07/29/18 12:35 Dose: 650 mg Albuterol (Ventolin 2.5 Mg/3 Ml Neb.Mariam*) 2.5 mg INH [id number] AWAKE [facility] Last Admin: 07/29/18 13:41 Dose: 2.5 mg Calcium Carbonate (Tums*) 500 mg PO Q4H PRN PRN Reason: INDIGESTION Last Admin: 07/26/18 01:01 Dose: 500 mg Device (Nicotine Mouth Piece*) 1 each INH .USE W/ CARTRIDGE PRN PRN Reason: WITHDRAWAL - NICOTINE Last Admin: 07/28/18 18:30 Dose: 1 each Heparin Sodium (Porcine) (Heparin Vial(*)) 5,000 units SUBCUT Q8HR [facility] Last Admin: 07/29/18 14:21 Dose: Not Given Levofloxacin (Levaquin Tab*) 750 mg PO DAILY [facility] Last Admin: 07/29/18 10:11 Dose: 750 mg Levothyroxine Sodium (Synthroid Tab*) 25 mcg PO DAILY [facility] Last Admin: 07/29/18 10:12 Dose: 25 mcg Mometasone Furoate/Formoterol Fumar (Dulera 200/5 Mdi*) 2 puff INH BID [facility] Last Admin: 07/29/18 08:43 Dose: 2 puff Nicotine (Nicotine Inhaler*) 10 mg INH Q2H PRN PRN Reason: CRAVING Last Admin: 07/28/18 18:28 Dose: 10 mg Pantoprazole Sodium (Protonix Tab*) 40 mg PO DAILY [facility] Last Admin: 07/29/18 10:11 Dose: Not Given Prednisone (Deltasone Tab*) 60 mg PO DAILY [facility] Last Admin: 07/29/18 10:11 Dose: 60 mg Tiotropium [place] (Spiriva Respimat 2.5 Mcg(Nf)) 2 puff INH DAILY [facility] Last Admin: 07/29/18 08:43 Dose: 2 puff Vital Signs - 8 hr 07/29/18 07/29/18 07/29/18 07:59 08:44 10:27 Temperature 98.2 F Pulse Rate 81 96 Respiratory 20 20 20 Rate Blood Pressure 129/65 (mmHg) O2 Sat by Pulse 96 98 98 Oximetry 07/29/18 13:42 Temperature Pulse Rate 94 Respiratory 20 Rate Blood Pressure (mmHg) O2 Sat by Pulse 98 Oximetry Oxygen Devices in Use Now: OxyMask Appearance: in chair, was ambulating earlier with the oxygen. Eyes: No Scleral Icterus, - - EOMI Ears/Nose/Mouth/Throat: NL Teeth, Lips, Gums, Mucous Membranes Moist Neck: NL Appearance and Movements; NL JVP, Trachea Midline Respiratory: - - expiratory wheezing, coarse rhonchi Cardiovascular: NL Sounds; No Murmurs; No JVD, No Edema Abdominal: NL Sounds; No Tenderness; No Distention Neurological: Alert and Oriented x 3 Result Diagrams: 07/28/18 06:04 07/28/18 06:04 Additional Lab and Data: . Microbiology and Other Data: Microbiology 07/24/18 18:39 Nasal Screen MRSA (PCR) - Final Nasal Mrsa Not Detected Assess/Plan/Problems-Billing Assessment: Ms. Maldonado is a 67 yo F with a PMH of COPD on home O2 prn and continued smoking who was admitted on 07/23/18 with SOB secondary to COPD exacerbation. - Patient Problems (1) Acute hypoxemic respiratory failure Current Visit: No Status: Acute Code(s): J96.01 - ACUTE RESPIRATORY FAILURE WITH HYPOXIA SNOMED Code(s): 554123904 Comment: - Patient on 3 liters O2 - Secondary to COPD exacerbation. Chest xray without infiltrate, Continue COPD treatment - I did place her on Levaquin 750 mg Daily as patient did not want to restart her IV. - Repeat CXR today no acute disease, COPD changes only (2) COPD exacerbation Current Visit: No Status: Acute Code(s): J44.1 - CHRONIC OBSTRUCTIVE PULMONARY DISEASE W (ACUTE) EXACERBATION SNOMED Code(s): 203363189 Comment: - completed her azithromycin 250 Mg IV daily #5/5 on 07/28/18 - Continue steroid switched to po prednisone - continue Duoneb and albuterol PRN, Mucinex 1200 mg bid, and Spiriva - Added levaquin 750 mg daily po. CXR this am no acute disease. COPD findings (3) Hypothyroidism Current Visit: Yes Status: Acute Code(s): E03.9 - HYPOTHYROIDISM, UNSPECIFIED SNOMED Code(s): 93820121 Comment: TSH wnl 07/23/18. - Continue levothyroxine 25 mcg daily (4) Hyponatremia Current Visit: No Status: Acute Code(s): E87.1 - HYPO-OSMOLALITY AND HYPONATREMIA SNOMED Code(s): 14465284 Comment: - Na+ 133 07/28/18. (5) Leg edema Current Visit: No Status: Acute Code(s): R60.0 - LOCALIZED EDEMA SNOMED Code(s): 495740691 Comment: - home diuretic was on hold will resume bumex 0.5 mg daily. - Echo 08/2017 with intact EF and no evidence of valvular dysfunction. Note BNP 35 on 07/23/18. (6) DVT prophylaxis Current Visit: No Status: Acute Code(s): FNE0365 - SNOMED Code(s): 524951509 Comment: - Hep SQ. Status and Disposition: Inpatient. Anticipate discharge to home when medically stable.
[2018-07-29] MEDS: Bumetanide TAB* 1 MG PO SCH (18:23)
[2018-07-29] MEDS ORDERED: Magnesium Hydroxide LIQ* 30 ML UDC PO PRN (20:42)
[2018-07-29] MEDS ORDERED: Magnesium Hydroxide LIQ* 30 ML UDC ONE (20:46)
[2018-07-30] MEDS: Albuterol 2.5 MG/3 ML NEB.SOL* (0.083%) INH SCH ×2 (00:48→07:10)
[2018-07-30] MEDS: Heparin VIAL(*) 5000 UNITS/ML VIAL (FIVE THOUSAND) SUBCUT SCH (05:33)
[2018-07-30] MEDS: Mometasone/Formoter 200/5 MDI INH SCH (07:22)
[2018-07-30] MEDS: PTO: Tiotropium Respimt 2.5 mcg(NF) 1 PUFF MDI INH SCH (07:26)
[2018-07-30] MEDS: Bumetanide TAB* 1 MG PO SCH (08:17)
[2018-07-30] MEDS: Levothyroxine TAB* 25 MCG TAB PO SCH (08:17)
[2018-07-30] MEDS: Levofloxacin TAB* 750 MG PO SCH (08:17)
[2018-07-30] MEDS: Pantoprazole TAB * 40 MG TAB PO SCH (08:20)
[2018-07-30] MEDS: predniSONE TAB* 20 MG PO SCH (08:25)
[2018-07-30 08:56] VITALS: BP 98/73
--- NOTE | 2018-07-30 14:09 | DS ---
CC: Brendan Figueroa MD DISCHARGE SUMMARY: DATE OF ADMISSION: 07/23/18 DATE OF DISCHARGE: 07/30/18 PRIMARY CARE PROVIDER: Brendan Figueroa MD. FINAL DISCHARGE DIAGNOSES: 1. Chronic obstructive pulmonary disease exacerbation. 2. Noncompliance with medication (she only accepts the medication that is acceptable to her despite advising on certain medications that would be beneficial, she opts not to take them as they do cause her chest pain, example DuoNeb cause her breathing to be worse, Mucinex caused her chest pain and wor sening cough). 3. History of smoking, advised for cessation, I have low suspicion that she will comply. 4. Hypothyroidism. 5. Hyponatremia. HOSPITAL COURSE: The patient presented to [facility] on 07/23/18 for shortness of breath with known history of tobacco abuse, active COPD, on oxygen,she only use it p.r.n. at home and she fi catracho came into the emergency room with shortness of breath for 2 to 3 days as she reported to the ER staff on admission with a fever. She states she was prescribed prednisone as an outpatient. She wa s only taking it p.r.n. She was also given antibiotic, cefuroxime, she has only started to take, she was reporting green sputum on admission to the emergency staff as outlined in her H and P. On prese ntation, she was quite in respiratory distress that she was requiring ICU admission and use of high o xygen requirement with Vapotherm. She was started on IV Solu-Medrol with IV antibiotics, ceftriaxone and Zithromax and DuoNeb q.4 hours with a flutter valve. Sputum cultures were requested for which h as not been able to be obtained throughout the hospital stay up until I encountered the patient for t he first encounter on 07/27/18 as my initial assessment. From the first encounter, the patient was c omplaining and agitated that she is still in ICU on Vapotherm oxygen. She was complaining about the Mucinex, stating it is causing her chest pain and she has been declining it. Several attempts advised to explain the benefit of mucolytic agent which failed and she continue to decline and hence Mucinex was discontinued. The patient was successfully tapered down to nasal cannula and was transferred ou t of the ICU on 07/28/18. When she was seen and assessed on 07/28/18, her complaint for that day wa s with DuoNeb. She was frustrated that we have been giving her Atrovent mixed with the albuterol as she only takes albuterol at home and the Atrovent has been causing her some chest pain and choking, she refused and declined the DuoNeb and switched treatment to albuterol only. The patient lost her I V site. On day #3, she declined to have the IV site and she does not want to get poked and her antib iotic was transitioned to oral Levaquin and steroid was transitioned to oral dexamethasone. Repeat c hest x-ray was obtained on 07/29/18, which did not show any infiltrate, only the finding significant of COPD. Today, 07/30/18, her complaint is her blood work, being poked everyday. I explained that t he benefits for her blood work to assess her electrolytes. She insisted on refusing her blood work a nd she wanted to go home today and I was called at 08:01 this morning to facilitate her discharge marlen t she is not staying. The patient was seen and assessed at bedside. She is determined to go home an d at this time given the fact that she has been on oral antibiotics and oral steroids with requiremen t of 3 L, she does have oxygen at home, I see no reason to keep her as an inpatient. The only concer n I have that she is going to be noncompliant with her smoking habit which puts her at high risk for readmission. The patient was discharged home with reservation that she is a very high to readmit sim ply for being noncompliant with the treatment and smoking. DISCHARGE PHYSICAL EXAM: Her exam on discharge today, temperature is 98.2, her pulse is 90, her resp iratory rate is 17, her saturation is 96% on 3 L. Generally, she is awake, alert, anxious, agitated. She would like to go home sooner than later. Her lungs poor air flow with minimal expiratory wheez e. I could not appreciate any rhonchi. Cardiovascular: S1 and S2, regular rate and rhythm. Abdomen : Positive bowel sounds, soft, nontender. Extremities: Trace ankle edema with positive clubbing. LABORATORY STUDIES: She had multiple blood works significant for leukocytosis, probably due to her s teroids. Her chemistry is significant for hyponatremia as low as 126 and 133 on 07/28/18. She declined lab wor k for this morning. Urine negative. Influenza A and B negative. DIAGNOSTIC STUDIES: She had a chest x-ray on 07/23/18, no evidence of infiltrates, COPD changes. Repeat chest x-ray on 07/29/18, COPD changes, no infiltrate. DISCHARGE MEDICATIONS: 1. She was discharged on her home medicine of Bumex 0.5 daily. 2. Levoxyl 25 daily. 3. Spiriva. 4. Albuterol inhaler, new prescription and she was given a proscription for nebulizer. 5. Continue her albuterol MDI inhaler two puffs as well. 6. Prescription for Levaquin 750 daily for 4 more days. 7. Prednisone taper 60 mg for 2 days, then 40 mg for 4 days and 20 mg for 4 days. DISCHARGE RECOMMENDATIONS: 1. The patient to follow up with her primary care provider, Dr. Brendan Figueroa, in 1 to 2 weeks. 2. Nebulizer machine was provided through [facility] and a prescription for the albuterol nebulizer was provided via electronic prescription along with her prednisone and her levothyroxine. DISPOSITION: Home. DISCHARGE CONDITION: Fair, but guarded as a high risk for readmission due to noncompliance with allie tment and smoking. [id number]/[facility] #: [id number]
== END 2018-07-30 09:55 | disposition home or self-care (01) | DRG 190 ==
LOC: ED 18:37 → EDHOLD 22:23 → ICU 07-24 17:56 → MED 07-27 18:24
PROVIDERS: ADMIT Internal Medicine; ATTEND Internal Medicine
DX: J44.1 Chronic obstructive pulmonary disease with (acute) exacerbation (principal); J96.01 Acute respiratory failure with hypoxia; E87.1 Hypo-osmolality and hyponatremia; F17.210 Nicotine dependence, cigarettes, uncomplicated; R40.2142 Coma scale, eyes open, spontaneous, at arrival to emergency department; R40.2252 Coma scale, best verbal response, oriented, at arrival to emergency department; E03.9 Hypothyroidism, unspecified; R60.0 Localized edema; Z88.8 Allergy status to other drugs, medicaments and biological substances; Z88.1 Allergy status to other antibiotic agents; Z86.718 Personal history of other venous thrombosis and embolism; Z91.14 Patient's other noncompliance with medication regimen; Z97.10 Presence of artificial limb (complete) (partial), unspecified; Z80.49 Family history of malignant neoplasm of other genital organs; Z91.030 Bee allergy status
CPT/HCPCS: 36415; 71045; 71046; 80048; 80053; 81003; 83605; 83735; 83880; 83935; 84100; 84300; 84443; 84484; 85025; 86140; 87070; 87205; 87641; 93005; 94640; 99285; 99406; A9270-GY; J0456; J0696; J1040; J1644; J2920; J2930; J7512; J7611

== ENCOUNTER 2018-10-13 07:14 | Inpatient (IN) | payer MEDICARE, BC ==
[2018-10-13] MEDS ORDERED: Magnesium Sulfate 2 GM IV* 2 GM/50 ML BAG IVPB ONE (07:35)
--- NOTE | 2018-10-13 07:37 | ED ---
Respiratory - HPI Summary HPI Summary: 67 year old female presents with shortness of breath for the past couple days. She states she was outside on Thursday and allergies are one of her triggers. She states she's had shortness breath since then. She states that Thursday she took some nebulizers and increased oxygen and it seemed to help. She states she had stenting today but she was unable to breathe properly. She called EMS and her O2 sats were 75 when they arrived. They gave her 2 breathing treatments and 10 mg of Decadron with improvement but she came in tachypneic and in tripod position. She states that she is feeling much better. She still admits to some chest tightness and shortness breath. Denies any chest pain. No vomiting. No fevers. She also notes that her weight is increased. Feels that her legs are swollen. has history of COPD and is on 2 liters at home. - History of Current Complaint Chief Complaint: EDShortnessOfBreath Stated Complaint: SOB PER EMS Time Seen by Provider: 10/13/18 07:28 Pain Intensity: 8 - Allergy/Home Medications Allergies/Adverse Reactions: Allergies Allergy/AdvReac Type Severity Reaction Status Date / Time aspirin Allergy Unknown Verified 10/13/18 07:20 Reaction Details cat dander Allergy Hives Verified 10/13/18 07:20 erythromycin base Allergy Unknown Verified 10/13/18 07:20 Reaction Details mold Allergy Unknown Verified 10/13/18 07:29 Reaction Details Home Medications: Home Medications Albuterol 2.5MG/3ML (0.083%)* [Ventolin 2.5 MG/3 ML NEB.ALTAGRACIA*] 2.5 mg INH Q4H [History Confirmed 10/13/18] Albuterol Sulfate [Albuterol Sulfate Hfa] 2 puff INH Q4H PRN 10/13/18 [History Confirmed 10/13/18] predniSONE [Prednisone 5 MG TAB] 10 mg PO DAILY 10/13/18 [History Confirmed ] PMH/Surg Hx/FS Hx/Imm Hx Endocrine/Hematology History: Denies: Hx Anticoagulant Therapy Cardiovascular History: Reports: Hx Deep Vein Thrombosis - 10 yrs ago, Other Cardiovascular Problems/Disorders - diastolic heart failure Respiratory History: Reports: Hx Chronic Obstructive Pulmonary Disease (COPD), Hx Pneumonia, Hx Seasonal Allergies, Other Respiratory Problems/Disorders - bronchitis x2 Denies: Hx Asthma Musculoskeletal History: Reports: Hx Back Problems - Muscle spasms Sensory History: Reports: Hx Contacts or Glasses Denies: Hx Deafness, Hx Hearing Aid Opthamlomology History: Reports: Hx Contacts or Glasses Neurological History: Denies: Hx Dementia Psychiatric History: Reports: Hx Anxiety, Hx Depression Denies: Hx Autism - Surgical History Surgery Procedure, Year, and Place: hysterectomy,appendectomy Hx Anesthesia Reactions: No Infectious Disease History: No Infectious Disease History: Denies: Traveled Outside the [place] in Last 30 Days - Family History Known Family History: Negative: Seizure Disorder - Social History Alcohol Use: None Hx Substance Use: No Substance Use Type: Reports: None Hx Tobacco Use: Yes Smoking Status (MU): Light Every Day Tobacco Smoker Type: Cigarettes Amount Used/How Often: 1/2 pack/day Length of Time of Smoking/Using Tobacco: 50 years Have You Smoked in the Last Year: Yes Review of Systems Negative: Fever Negative: Chest Pain Positive: Shortness Of Breath, Cough All Other Systems Reviewed And Are Negative: Yes Physical Exam Triage Information Reviewed: Yes Vital Signs On Initial Exam: Initial Vitals Temp Pulse Resp BP Pulse Ox 98.6 F 108 40 144/80 90 10/13/18 07:16 10/13/18 07:16 10/13/18 07:16 10/13/18 07:16 10/13/18 07:16 Vital Signs Reviewed: Yes Appearance: Positive: Well-Appearing Skin: Positive: Warm, Dry Head/Face: Positive: Normal Head/Face Inspection Eyes: Positive: Normal, Conjunctiva Clear ENT: Positive: Pharynx normal Respiratory/Lung Sounds: Positive: Decreased Breath Sounds, Wheezes Cardiovascular: Positive: Normal, RRR Abdomen Description: Positive: Nontender, Soft Bowel Sounds: Positive: Present Musculoskeletal: Positive: Normal Neurological: Positive: Normal Psychiatric: Positive: Normal Diagnostics - Vital Signs Vital Signs Temp Pulse Resp BP Pulse Ox 10/13/18 07:16 98.6 F 115 31 144/80 90 - Laboratory Result Diagrams: 10/13/18 08:09 10/13/18 08:09 Lab Statement: Any lab studies that have been ordered have been reviewed, and results considered in the medical decision making process. - Radiology chest Radiology Interpretation Completed By: Radiologist Summary of Radiographic Findings: IMPRESSION: HYPERINFLATION, CONSISTENT WITH COPD. NO ACTIVE CARDIOPULMONARY DISEASE. - EKG No standard instances Cardiac Rate: NL EKG Rhythm: Sinus Rhythm Summary of EKG Findings: sinus rhythm Re-Evaluation - Re-Evaluation First Eval Re-Evaluation Time: 08:17 Change: Improved Comment: feeling better Second Eval Re-Evaluation Time: 09:11 Comment: states now has a headache, requesting advil, lungs some decreased breath sounds, patient states prefers oxy mask rather than nasal cannuli. o2 stats dropped to 88 so increased oxygen to 6 liters. Disposition - Course Course Of Treatment: 67 year old female presents with shortness of breath for the past couple days. She states she was outside on Thursday and allergies are one of her triggers. She states she's had shortness breath since then. She states that Thursday she took some nebulizers and increased oxygen and it seemed to help. She states she had stenting today but she was unable to breathe properly. She called EMS and her O2 sats were 75 when they arrived. They gave her 2 breathing treatments and 10 mg of Decadron with improvement. She states that she is feeling much better. She still admits to some chest tightness and shortness breath. Denies any chest pain. No vomiting. No fevers. She also notes that her weight is increased. Feels that her legs are swollen. On exam wheezes and decreased breath sounds noted. She is satting in the 90s on 4 L with increased respirations. wbc 11.8. crp normal. troponin .01. bnp 23. d- dimer normal. patient o2 dropped to 88 switched to oxy mask and o2 improved to 95. discussed case with dr iln. - Differential Dx - Cardiopulmonary Differential Diagnoses - Cardiopulmonary: Bronchitis, Exacerbation Of COPD, Lower Resp Infection - Diagnoses Provider Diagnoses: COPD exacerbation Discharge - Sign-Out/Discharge Documenting (check all that apply): Patient Departure - Discharge Plan Condition: Fair Disposition: ADMITTED TO [facility] - Billing Disposition and Condition Condition: FAIR Disposition: Admitted to [facility]
[2018-10-13] MEDS ORDERED: Albuterol 2.5 MG/3 ML NEB.SOL* (0.083%) INH ONE (07:38)
[2018-10-13] MEDS ORDERED: Levothyroxine TAB* 25 MCG TAB PO ONE (08:20)
[2018-10-13 08:21] LABS: ABS Basophils 0.1 10^3/ul (0-0.2); ABS Eosinophils 0.4 10^3/ul (0-0.6); ABS Lymphocytes 1.4 10^3/ul (1.0-4.8); ABS Monocytes 0.8 10^3/ul (0-0.8); Eosinophil % 3.5 %; Hematocrit 37 % (35-47); Hemoglobin 12.5 g/dL (12.0-16.0); Lymphocyte % 12.2 %; Mean Corpuscular HGB Conc 34 g/dL (31-36); Mean Corpuscular Hemoglobin 30 pg (27-31); Mean Corpuscular Volume 90 fL (80-97); Mean Platelet Volume 7.3 fL (7.4-10.4); Nucleated Red Blood Cells % 0.1; Platelet Count 269 10^3/uL (150-450); Red Blood Count 4.17 10^6 /uL (3.70-4.87); Red Cell Distribution Width 14 % (10-15); White Blood Count 11.8 10^3/uL (3.5-10.8)
[2018-10-13] MEDS ORDERED: Bumetanide TAB* 2 MG PO ONE (08:23)
[2018-10-13 08:34] LABS: Albumin 4.1 g/dL (3.2-5.2); Albumin/Globulin Ratio 1.8 (1-3); BUN/Creatinine Ratio 26.5 (8-20); C Reactive Protein 5.06 mg/L (<8.01); Calcium 9.1 mg/dL (8.6-10.3); EGFR African American 105.1 (>60); EGFR Non-African American 86.8 (>60); Globulin 2.3 g/dL (2-4); Potassium 4.2 mmol/L (3.5-5.0); Total Bilirubin 0.8 mg/dL (0.2-1.0); Total Protein 6.4 g/dL (6.4-8.9)
[2018-10-13 08:35] LABS: Troponin I 0.01 ng/mL (<0.04)
[2018-10-13] MEDS ORDERED: Bumetanide TAB* 1 MG PO ONE (09:00)
[2018-10-13] MEDS ORDERED: Bumetanide TAB* 2 MG PO SCH (09:00)
[2018-10-13] MEDS ORDERED: Ibuprofen TAB* 400 MG PO ONE (09:11)
[2018-10-13] MEDS ORDERED: A lbuterol Hfa (PREPAK) 1 MDI - ED TAKE HOME DISPENSING ONLY INHH PRN (09:38)
[2018-10-13] MEDS ORDERED: methylPREDNISolone SOD 40 MG* 1 ML VIAL IV ONE (09:39)
[2018-10-13] MEDS ORDERED: Albuterol 2.5 MG/3 ML NEB.SOL* (0.083%) INH PRN (09:41)
[2018-10-13] MEDS ORDERED: Nicotine* 4MG (FRUIT FLAVOR) GUM PO PRN (10:11)
[2018-10-13 10:30] LABS: Urine Appearance Clear; Urine Bilirubin Negative (Negative); Urine Blood Negative (Negative); Urine Color Straw; Urine Glucose Negative (Negative); Urine Ketones Negative (Negative); Urine Nitrite Negative (Negative); Urine Protein Negative (Negative); Urine Specific Gravity 1.005 (1.010-1.030); Urine Urobilinogen Negative (Negative)
[2018-10-13] MEDS ORDERED: Albuterol 2.5 MG/3 ML NEB.SOL* (0.083%) INH SCH (11:00)
[2018-10-13] MEDS: Nicotine PATCH 14 MG/24 HR* PATCH TRANSDERM SCH (11:50)
[2018-10-13] MEDS: Albuterol 2.5 MG/3 ML NEB.SOL* (0.083%) INH SCH ×2 (12:28→17:03)
--- NOTE | 2018-10-13 13:50 | HP ---
CC: Dr. Figueroa.* HISTORY AND PHYSICAL: DATE OF ADMISSION: 10/13/18 PRIMARY CARE PROVIDER: Dr. Figueroa. CHIEF COMPLAINT: Shortness of breath. HISTORY OF PRESENT ILLNESS: Mrs. Maldonado is a 67-year-old lady with a past medical history of COPD on home oxygen as needed, diastolic dysfunction with chronic lower extremity edema, hypothyroidism, who presents to the emergency room with complaints of shortness of breath. The patient states that on 10/09/18, she spent the day outside. Initially, she was feeling well, but as the day went on, she started to feel that her "allergies were acting up." She states that the next day she had to call ambulance in the morning, but she did treat with nebulizer treatments at home and by the time the ambulance could go there, she was feeling better and did not come to the hospital. She states that her breathing improved a little, but was not back to the baseline and she thought she would be able to manage at home. She increased her usual prednisone dose, but as she noted no improvement , she went back down to her usual dose of 10 mg. She states that overnight the shortness of breath and the cough became worse and she was transported to the emergency room. As per the nurse's description the patient was brought in by EMS, on the tripod position on arrival with accessory muscle use. Respiratory rate of 40 per minute and oxygen saturation was 76% on 2 L nasal cannula. EMS gave her 10 mg of Decadron IV, breathing treatments and in the emergency room after receiving another breathing treatment, her breathing is little better with oxygen saturation of 93% on 4 L OxyMask. During my interview, the patient had to get up from bed to use the commode and she became severely short of breath with minimal exertion and it took her some time to recover and be able to answer questions again. She states that her phlegm is thicker than usual, but she denies chest pain, palpitations, fever, urinary, or bowel complaints. PAST MEDICAL HISTORY: 1. COPD, on home oxygen, 2 L at night and p.r.n. during the day. 2. Diastolic dysfunction. 3. Chronic lower extremity edema. 4. Hypothyroidism. 5. Tobacco abuse. PAST SURGICAL HISTORY: Status post appendectomy and status post hysterectomy. MEDICATIONS: 1. Albuterol nebulizer 2.5 inhaled q.4 hours, but the patient states that she usually does it at 9:00 in the morning, 2:00 in the afternoon and 9:00 in the evening. 2. Albuterol HFA 2 puffs inhaled q.4 hours p.r.n. shortness of breath. 3. Bumetanide 0.5 mg p.o. daily. 4. Levothyroxine 25 mcg p.o. daily. 5. Prednisone 10 mg p.o. daily. 6. Spiriva 2 puffs inhaled daily. ALLERGIES: ASPIRIN, CAT DANDER, ERYTHROMYCIN and MOULD. FAMILY HISTORY: Mother had a history of cervical cancer. Father passed in his 80s of old age. SOCIAL HISTORY: The patient has 54 years' smoking history, 5 to 10 cigarettes. The patient states that she still is smoking and even with the shortness of breath yesterday, she still smokes 5 cigarettes. No history of alcohol or drug use. Surrogate decision maker is her , Adithya Maldonado, phone number is [phone]. REVIEW OF SYSTEMS: A 14-point review of systems was performed and all the pertinent negative and positive findings are in the HPI. PHYSICAL EXAMINATION GENERAL: The patient is an elderly lady who appears older than stated age, sitting up in the stretcher in no acute distress. The patient became severely short of breath when she moved to the bedside commode and took some time sitting on a tripod position for her to recover and also we could continue our conversation. VITAL SIGNS: Temperature 98.6, heart rate is 87, respiratory rate 26, oxygen saturation is 96% on 4 L nasal cannula, and blood pressure is 120/58. HEENT: Pupils are equal. Moist mucous membranes. CHEST: Breath sounds present bilaterally with diffuse wheezing. CVS: Normal S1, S2. Regular rate and rhythm. ABDOMEN: Soft. Bowel sounds are present. EXTREMITIES: There is moderate to severe bilateral lower extremity pitting edema. NEUROLOGIC: She is alert and oriented x3. Able to move all 4 extremities. DIAGNOSTIC STUDIES/LAB DATA: The patient had a CBC that showed WBC 11.8, hemoglobin 12.5, hematocrit 37, platelet of 269,000 and 76% neutrophils. D- dimer was less than 200. Chemistry showed sodium 137, potassium of 4.2, chloride of 98, bicarb of 75, BUN of 18, creatinine of 0.68, glucose 116, lactic acid 0.9, calcium 9.1, magnesium of 2. LFTs are normal. Troponin was 0.01. BNP 23. Chest x-ray shows hyperinflation consistent with COPD, but no active cardiopulmonary disease. EKG done on 10/13/18 at 7:47 a.m. shows sinus rhythm at 95 beats per minute with no acute ischemic changes. No significant change from her prior her prior EKG from July. At that time, the baseline was better and the heart rate was slower. ASSESSMENT AND PLAN: Mrs. Maldonado is a 67-year-old lady with a past medical history of chronic obstructive pulmonary disease on home O2, tobacco abuse, hypothyroidism who presented to the emergency room with complaints of shortness of breath, found to have chronic obstructive pulmonary disease exacerbation. 1. Acute on chronic hypoxemic respiratory failure. The patient is usually on 2 L of oxygen at night and uses it p.r.n. during the day, but now she is requiring 4 L of oxygen. The cause is acute exacerbation of chronic obstructive pulmonary disease. 2. Acute exacerbation of chronic obstructive pulmonary disease. She does not appear to have an infection at this time. This episode was slightly triggered by her allergies after being outside over the weekend. She will be started on steroids, continued on bronchodilators and we will continue to monitor. As I said before, at this point there is no indication for antibiotics as she does not appear to be infected. 3. Lower extremity edema, likely secondary to right-sided heart failure associated with her chronic obstructive pulmonary disease. Echocardiogram done in August 2017 showed mild dilatation of the right ventricle. She will be continued on diuretics. 4. Tobacco abuse. The patient has received extensive education about the need for tobacco cessation. She states that she is aware that she needed to quit and she states that at this point she is trying to limit her cigarettes to 10 a day and when she is discharged from the hospital, she is planning to cut down to 5 a day and continue in this fashion until she is able to quit. I told her that she already has a very long history of tobacco abuse with severe chronic obstructive pulmonary disease as a result and it will be in her best interest to just stop smoking altogether. She will receive nicotine supplementation while in the hospital. 5. Hypothyroidism. We will continue levothyroxine. 6. DVT prophylaxis. The patient has a score of 4 on the DVT prophylaxis risk assessment guide and she will be on subcutaneous heparin. 7. Code status was discussed with the patient and she elected to be a full code. TIME SPENT: Approximately 55 minutes were spent with the patient interview, medical records review, physical examination to complete this admission, more than half of this time was spent [id number] with the patient in coordination of care. The patient's was also present during this interview and all their questions were answered to their satisfaction. [id number]/[facility] #: [id number] MARIA D
[2018-10-13] MEDS: Heparin VIAL(*) 5000 UNITS/ML VIAL (FIVE THOUSAND) SUBCUT SCH ×2 (14:26→19:59)
[2018-10-13] MEDS: Nicotine Patch Removal NOTE FOLLOW UP SCH (19:59)
[2018-10-13] MEDS: methylPREDNISolone SOD 40 MG* 1 ML VIAL IV SCH (20:04)
[2018-10-14] MEDS: Albuterol 2.5 MG/3 ML NEB.SOL* (0.083%) INH SCH ×4 (02:58→19:39)
[2018-10-14] MEDS: Benzonatate CAP* 100 MG PO PRN ×2 (04:05→17:16)
[2018-10-14] MEDS: Heparin VIAL(*) 5000 UNITS/ML VIAL (FIVE THOUSAND) SUBCUT SCH ×3 (05:36→20:52)
[2018-10-14] MEDS: Levothyroxine TAB* 25 MCG TAB PO SCH (05:38)
[2018-10-14] MEDS: PTO: Tiotropium Respimt 2.5 mcg(NF) 1 PUFF MDI INH SCH (07:20)
[2018-10-14] MEDS ORDERED: Levothyroxine TAB* 25 MCG TAB PO SCH (09:00)
[2018-10-14] MEDS: methylPREDNISolone SOD 40 MG* 1 ML VIAL IV SCH ×2 (09:03→20:58)
[2018-10-14] MEDS: Nicotine PATCH 14 MG/24 HR* PATCH TRANSDERM SCH (09:05)
[2018-10-14] MEDS ORDERED: Albuterol HFA INHALER* 8 gm MDI INH PRN (09:57)
[2018-10-14] MEDS: Mometasone/Formoter 100/5 MDI INH SCH ×2 (12:01→19:40)
[2018-10-14] MEDS: Nystatin TOP POWDER* 15 GM BTL TOPICAL SCH ×2 (12:29→20:58)
[2018-10-14] MEDS: Bumetanide TAB* 1 MG PO SCH (12:30)
--- NOTE | 2018-10-14 12:41 | PN ---
Subjective Date of Service: 10/14/18 Interval History: HOSPITALIST PROGRESS NOTE Patient seen and examined at bedside. Care reviewed and d/w Alexsandra Chow RN. She feels a little better today. Woke around 4 AM with severe dyspnea, but feels better now, although not back to her usual. Family History: Unchanged from Admission Social History: Unchanged from Admission Past Medical History: Unchanged from Admission Objective Active Medications: Albuterol (Ventolin 2.5 Mg/3 Ml Neb.Mariam*) 2.5 mg INH Q2H PRN PRN Reason: SOB/WHEEZING Last Admin: 10/14/18 03:34 Dose: 2.5 mg Albuterol (Ventolin 2.5 Mg/3 Ml Neb.Mariam*) 2.5 mg INH [id number] AWAKE [facility] Last Admin: 10/14/18 07:18 Dose: 2.5 mg Albuterol (Ventolin Hfa Inhaler*) 2 puff INH Q4H PRN PRN Reason: SOB/WHEEZING Benzonatate (Tessalon Cap*) 100 mg PO TID PRN PRN Reason: COUGH Last Admin: 10/14/18 04:05 Dose: 100 mg Bumetanide (Bumex Tab*) 0.5 mg PO DAILY [facility] Last Admin: 10/14/18 12:30 Dose: 0.5 mg Heparin Sodium (Porcine) (Heparin Vial(*)) 5,000 units SUBCUT Q8HR [facility] Last Admin: 10/14/18 12:32 Dose: Not Given Levothyroxine Sodium (Synthroid Tab*) 25 mcg PO DAILY@0600 [facility] Last Admin: 10/14/18 05:38 Dose: 25 mcg Methylprednisolone Sodium Succinate (Solu-Medrol 40 Mg) 40 mg IV Q12H [facility] Last Admin: 10/14/18 09:03 Dose: 40 mg Mometasone Furoate/Formoterol Fumar (Dulera 100/5 Mdi*) 2 puff INH BID [facility] Last Admin: 10/14/18 12:01 Dose: Not Given Nicotine (Nicotine Patch 14 Mg/24 Hr*) 1 patch TRANSDERM DAILY [facility] Last Admin: 10/14/18 09:05 Dose: Not Given Nicotine Polacrilex (Nicotine Gum*) 4 mg PO Q2H PRN PRN Reason: CRAVING Nystatin (Nystatin Top Powder*) 1 applic TOPICAL BID [facility] Last Admin: 10/14/18 12:29 Dose: 1 applic Pharmacy Profile Note (Nicotine Patch Removal Note*) 1 note FOLLOW UP 2100 [facility] Last Admin: 10/13/18 19:59 Dose: Not Given Tiotropium [place] (Spiriva Respimat 2.5 Mcg(Nf)) 2 puff INH DAILY [facility] Last Admin: 10/14/18 07:20 Dose: Not Given Vital Signs - 8 hr 10/14/18 10/14/18 07:20 08:00 Temperature 97.2 F Pulse Rate 85 86 Respiratory 18 28 Rate Blood Pressure 134/64 (mmHg) O2 Sat by Pulse 93 97 Oximetry Oxygen Devices in Use Now: OxyMask Appearance: Elderly lady sitting up in bed in NAD Eyes: No Scleral Icterus Ears/Nose/Mouth/Throat: Mucous Membranes Moist Neck: Trachea Midline Respiratory: Symmetrical Chest Expansion and Respiratory Effort, - - BS+ bilaterally, scattered wheezing Cardiovascular: RRR - Normal S1 and S2 Extremities: - - Trace edema Neurological: Alert and Oriented x 3, NL Muscle Strength and Tone Result Diagrams: 10/13/18 08:09 10/13/18 08:09 Microbiology and Other Data: Microbiology 10/13/18 08:09 Aerobic Blood Culture - Preliminary Blood Venous No Growth Day 1 Anaerobic Blood Culture - Preliminary No Growth Day 1 10/13/18 08:07 Aerobic Blood Culture - Preliminary Blood Venous No Growth Day 1 Anaerobic Blood Culture - Preliminary No Growth Day 1 Assess/Plan/Problems-Billing Assessment: Mrs Maldonado is a 67yo F with PMH of COPD on home O2 at night and PRN during the day, diastolic dysfunction, chronic LE edema, hypothyroidism, tobacco abuse, who presented to ED with c/o severe dyspnea, found to have COPD exacerbation. - Patient Problems (1) Acute hypoxemic respiratory failure Comment: - Acute on chronic hypoxemic respiratory failure. - Continue supplemental O2. (2) COPD exacerbation Comment: - Likely associated with her allergies, no signs of infection at this time. - Continue bronchodilators, IV steroids. - Lengthy conversation with patient about other medications that would help her , especially longwall headgate operator, decreasing frequency of exacerbations - she's agreeable with a trial of Dulera while in the hospital. - She's aware tobacco cessation is the most important thing to help manage her COPD. (3) Leg edema Comment: - Suspect secondary to RV dysfunction associated with her COPD. - Educated on how a heart healthy diet would help her manage her edema, but she states she "cannot eat like this" - will change to regular diet. - Continue Bumetanide. (4) Tobacco abuse Comment: - Education provided. - Continue nicotine supplementation. (5) Hypothyroidism Comment: - Continue levothyroxine. (6) DVT prophylaxis Comment: - SQ heparin. (7) Full code status Comment: Status and Disposition: Change to inpatient.
[2018-10-14] MEDS ORDERED: Acetaminophen TAB* 325 MG PO PRN (17:08)
[2018-10-14] MEDS ORDERED: Ibuprofen TAB* 600 MG PO ONE (17:19)
[2018-10-14] MEDS: Nicotine Patch Removal NOTE FOLLOW UP SCH (19:33)
[2018-10-15] MEDS: Albuterol 2.5 MG/3 ML NEB.SOL* (0.083%) INH SCH ×4 (00:10→19:13)
[2018-10-15] MEDS: Heparin VIAL(*) 5000 UNITS/ML VIAL (FIVE THOUSAND) SUBCUT SCH ×3 (05:30→20:01)
[2018-10-15] MEDS: Levothyroxine TAB* 25 MCG TAB PO SCH (05:34)
[2018-10-15] MEDS: PTO: Tiotropium Respimt 2.5 mcg(NF) 1 PUFF MDI INH SCH (08:19)
[2018-10-15] MEDS: Mometasone/Formoter 100/5 MDI INH SCH (08:19)
[2018-10-15] MEDS: Nicotine PATCH 14 MG/24 HR* PATCH TRANSDERM SCH (09:36)
[2018-10-15] MEDS: Bumetanide TAB* 1 MG PO SCH (09:37)
[2018-10-15] MEDS: methylPREDNISolone SOD 40 MG* 1 ML VIAL IV SCH ×2 (09:39→19:58)
[2018-10-15] MEDS: Nystatin TOP POWDER* 15 GM BTL TOPICAL SCH ×2 (09:39→20:02)
--- NOTE | 2018-10-15 11:02 | PN ---
Subjective Date of Service: 10/15/18 Interval History: HOSPITALIST PROGRESS NOTE Patient seen and examined at bedside. Care reviewed and d/w Alexsandra Chow RN. She feels a little better at this time, but describes severe dyspnea and cough after using Dulera. Breathing not yet back to baseline, but improved from admission. Family History: Unchanged from Admission Social History: Unchanged from Admission Past Medical History: Unchanged from Admission Objective Active Medications: Acetaminophen (Tylenol Tab*) 650 mg PO Q6H PRN PRN Reason: pain/fever Last Admin: 10/14/18 17:16 Dose: 650 mg Albuterol (Ventolin 2.5 Mg/3 Ml Neb.Mariam*) 2.5 mg INH Q2H PRN PRN Reason: SOB/WHEEZING Last Admin: 10/14/18 03:34 Dose: 2.5 mg Albuterol (Ventolin 2.5 Mg/3 Ml Neb.Mariam*) 2.5 mg INH [id number] AWAKE [facility] Last Admin: 10/15/18 08:18 Dose: 2.5 mg Albuterol (Ventolin Hfa Inhaler*) 2 puff INH Q4H PRN PRN Reason: SOB/WHEEZING Benzonatate (Tessalon Cap*) 100 mg PO TID PRN PRN Reason: COUGH Last Admin: 10/14/18 17:16 Dose: 100 mg Bumetanide (Bumex Tab*) 0.5 mg PO DAILY [facility] Last Admin: 10/15/18 09:37 Dose: 0.5 mg Heparin Sodium (Porcine) (Heparin Vial(*)) 5,000 units SUBCUT Q8HR [facility] Last Admin: 10/15/18 05:30 Dose: Not Given Levothyroxine Sodium (Synthroid Tab*) 25 mcg PO DAILY@0600 [facility] Last Admin: 10/15/18 05:34 Dose: 25 mcg Methylprednisolone Sodium Succinate (Solu-Medrol 40 Mg) 40 mg IV Q12H [facility] Last Admin: 10/15/18 09:39 Dose: 40 mg Mometasone Furoate/Formoterol Fumar (Dulera 100/5 Mdi*) 2 puff INH BID [facility] Last Admin: 10/15/18 08:19 Dose: 2 puff Nicotine (Nicotine Patch 14 Mg/24 Hr*) 1 patch TRANSDERM DAILY [facility] Last Admin: 10/15/18 09:36 Dose: Not Given Nicotine Polacrilex (Nicotine Gum*) 4 mg PO Q2H PRN PRN Reason: CRAVING Nystatin (Nystatin Top Powder*) 1 applic TOPICAL BID [facility] Last Admin: 10/15/18 09:39 Dose: 1 applic Pharmacy Profile Note (Nicotine Patch Removal Note*) 1 note FOLLOW UP 2100 [facility] Last Admin: 10/14/18 19:33 Dose: Not Given Tiotropium [place] (Spiriva Respimat 2.5 Mcg(Nf)) 2 puff INH DAILY [facility] Last Admin: 10/15/18 08:19 Dose: 2 puff Vital Signs - 8 hr 10/15/18 10/15/18 10/15/18 04:03 07:00 08:42 Temperature 98.2 F 98.6 F Pulse Rate 71 65 84 Respiratory 18 16 18 Rate Blood Pressure 143/73 123/81 (mmHg) O2 Sat by Pulse 97 97 92 Oximetry Oxygen Devices in Use Now: Nasal Cannula Appearance: Pleasant elderly lady sitting up in a chair in [facility]. Eyes: No Scleral Icterus Ears/Nose/Mouth/Throat: Mucous Membranes Moist Neck: Trachea Midline Respiratory: Symmetrical Chest Expansion and Respiratory Effort, - - BS+ bilaterally diminished, with faint wheezing on the right Cardiovascular: RRR - Normal S1 and S2 Extremities: - - Mild bilateral LE edema Neurological: Alert and Oriented x 3, NL Muscle Strength and Tone Result Diagrams: 10/13/18 08:09 10/13/18 08:09 Assess/Plan/Problems-Billing Assessment: Mrs Maldonado is a 67yo F with PMH of COPD on home O2 at night and PRN during the day, diastolic dysfunction, chronic LE edema, hypothyroidism, tobacco abuse, who presented to ED with c/o severe dyspnea, found to have COPD exacerbation. - Patient Problems (1) Acute hypoxemic respiratory failure Comment: - Acute on chronic hypoxemic respiratory failure. - Continue supplemental O2. (2) COPD exacerbation Comment: - Likely associated with her allergies, no signs of infection at this time. - Continue bronchodilators, IV steroids. - Lengthy conversation with patient about other medications that would help her , especially long-term, decreasing frequency of exacerbations - she was agreeable with a trial of Dulera while in the hospital, but states the paroxysmal cough and dyspnea she experienced is similar to what happen on her prior stay when Dulera was tried. Will d/c Dulera and try Pulmicort nebulizer. - She's aware tobacco cessation is the most important thing to help manage her COPD. (3) Leg edema Comment: - Suspect secondary to RV dysfunction associated with her COPD. - Educated on how a heart healthy diet would help her manage her edema, but she states she "cannot eat like this" - continue regular diet. - Continue Bumetanide. (4) Tobacco abuse Comment: - Education provided. - Continue nicotine supplementation. (5) Hypothyroidism Comment: - Continue levothyroxine. (6) DVT prophylaxis Comment: - SQ heparin. (7) Full code status Comment: Status and Disposition: Inpatient. Anticipate d/c in AM if symptoms continue to improve.
[2018-10-15] MEDS: Benzonatate CAP* 100 MG PO PRN ×2 (11:30→20:00)
[2018-10-15] MEDS: Budesonide NEB* 0.25 MG/2 ML NEB.SOLN INH SCH ×2 (12:45→19:13)
[2018-10-15] MEDS ORDERED: Hydrocortisone 1% CREAM* 30 GM TUBE TOPICAL PRN (14:33)
[2018-10-15] MEDS: Nicotine Patch Removal NOTE FOLLOW UP SCH (20:02)
[2018-10-16] MEDS: Albuterol 2.5 MG/3 ML NEB.SOL* (0.083%) INH SCH ×2 (00:28→07:35)
[2018-10-16] MEDS: Heparin VIAL(*) 5000 UNITS/ML VIAL (FIVE THOUSAND) SUBCUT SCH (05:40)
[2018-10-16] MEDS: Levothyroxine TAB* 25 MCG TAB PO SCH (05:40)
[2018-10-16] MEDS: Budesonide NEB* 0.25 MG/2 ML NEB.SOLN INH SCH (07:35)
[2018-10-16] MEDS: methylPREDNISolone SOD 40 MG* 1 ML VIAL IV SCH (07:58)
[2018-10-16] MEDS: Bumetanide TAB* 1 MG PO SCH (08:01)
[2018-10-16] MEDS: PTO: Tiotropium Respimt 2.5 mcg(NF) 1 PUFF MDI INH SCH (08:07)
[2018-10-16] MEDS: Nystatin TOP POWDER* 15 GM BTL TOPICAL SCH (08:11)
[2018-10-16] MEDS: Nicotine PATCH 14 MG/24 HR* PATCH TRANSDERM SCH (08:11)
[2018-10-16 08:15] VITALS: BP 142/68
[2018-10-16] MEDS: Benzonatate CAP* 100 MG PO PRN (09:46)
--- NOTE | 2018-10-16 15:21 | DS ---
CC: Dr. Figueroa DISCHARGE SUMMARY: DATE OF ADMISSION: 10/13/18 DATE OF DISCHARGE: 10/16/18 PRIMARY CARE PROVIDER: Dr. Figueroa. DISCHARGE DIAGNOSIS: Acute chronic obstructive pulmonary disease exacerbation. SECONDARY DIAGNOSES: 1. Chronic obstructive pulmonary disease, on home oxygen 2 L at night and as needed during the day. 2. Diastolic dysfunction. 3. Chronic lower extremity edema. 4. Hypothyroidism. 5. Tobacco abuse. MEDICATION LIST: 1. Albuterol sulfate 2 puffs inhaled q.4 hours p.r.n. shortness of breath and wheezing. 2. Albuterol nebulized q.4 hours. 3. Spiriva Respimat 2 puffs inhaled daily. 4. Levothyroxine 25 mcg p.o. daily. 5. Bumetanide 0.5 mg p.o. daily. New medications: 1. Prednisone taper as follows: 60 mg p.o. daily for 5 days, 50 mg for 5 days, 40 mg for 5 days, 30 mg for 5 days, 20 mg for 5 days, then return to 10 mg daily as you are doing before. 2. Nystatin topical powder apply on the breast area twice a day. 3. Hydrocortisone 2.5% cream topical twice a day as needed for itching. 4. Pulmicort 0.25 mg nebulized twice a day. 5. Benzonatate 100 mg p.o. t.i.d. as needed for cough. HOSPITAL COURSE: Ms. Maldonado is a 67-year-old lady with a past medical history as stated above, who presented to the emergency room with complaints of progressive shortness of breath and cough. For mo re details about her presentation, I refer you to her history and physical. Her symptoms had started after she spent the day outside and she states that her "allergies were acting up." In the emergenc y room, the patient's chest x-ray did not show any acute pulmonary disease, only chronic findings of COPD and there was no evidence for infection. She was admitted for further treatment and was treated with bronchodilators and steroids. I had mult iple conversations with the patient that she would probably benefit by inhaled steroid and a long act ing bronchodilator. We reviewed risks and benefits and she states that she is very reluctant to star t new medications. We initially tried Dulera, but she states that the medication makes her cough wor se, so we switched to nebulized Pulmicort and she is tolerating this better. I believe she would singh efit of being evaluated by Pulmonary as an outpatient. She was admitted in July with COPD exacerbat ion and returns now in September with another episode and she also continues to smoke. We talked about to bacco cessation and she states that she has cut down from a pack and a half a day to 6 cigarettes a d ay and she will continue to taper it down very slowly, but she states that she is not prepared to delores t even though she understands the risks of her decision including but not limited to worsening of her lung disease and other diseases associated with it including heart disease, peripheral vascular dise ase, and multiple types of cancer. The patient also had complaints of itching on her back and on physical examination she appeared to montes ve some erythema in the area around the bra band, so she was advised to use hydrocortisone on the are a and avoid a bra while she is at home. The patient had significant improvement of her respiratory symptoms and she felt well to be discharge d home today. PHYSICAL EXAMINATION: Vital Signs: Temperature 98.4, heart rate is 68, respiratory rate is 18, oxyg en saturation 96% on room air, blood pressure 142/68. General: The patient is a pleasant lady, sitti ng up in bed, in no acute distress. CVS: Normal S1, S2. Regular rate and rhythm. Chest: Breath so unds present bilaterally, diminished with no added sounds. Neuro: She is alert and oriented x3. Ab le to move all 4 extremities. DIET: Heart-healthy diet. ACTIVITIES: As tolerated. DISPOSITION: To home. STATUS WHILE IN THE HOSPITAL: Inpatient. CONDITION AT THE TIME OF DISCHARGE: Fair. Please keep in mind that this is a summarized version of this patient's hospital stay. If you need m ore information, please feel free to call me at [phone] or please obtain full medical records. TIME SPENT: Approximately 45 minutes was spent to complete this discharge. [id number]/[facility] #: [id number]
== END 2018-10-16 11:00 | disposition home or self-care (01) | DRG 190 ==
LOC: ED 07:14 → MED 09:37 → OBSVTOIN 10-14 10:00
PROVIDERS: ADMIT Internal Medicine; ATTEND Internal Medicine
DX: J44.1 Chronic obstructive pulmonary disease with (acute) exacerbation (principal); J96.21 Acute and chronic respiratory failure with hypoxia; I50.32 Chronic diastolic (congestive) heart failure; L29.9 Pruritus, unspecified; L53.9 Erythematous condition, unspecified; F17.210 Nicotine dependence, cigarettes, uncomplicated; F41.9 Anxiety disorder, unspecified; F32.9 Major depressive disorder, single episode, unspecified; E03.9 Hypothyroidism, unspecified; Z88.8 Allergy status to other drugs, medicaments and biological substances; I50.812 Chronic right heart failure; Z88.1 Allergy status to other antibiotic agents; Z99.81 Dependence on supplemental oxygen; Z79.52 Long term (current) use of systemic steroids; Z79.51 Long term (current) use of inhaled steroids; Z90.710 Acquired absence of both cervix and uterus; Z91.048 Other nonmedicinal substance allergy status; Z80.49 Family history of malignant neoplasm of other genital organs; Z86.718 Personal history of other venous thrombosis and embolism; Z87.01 Personal history of pneumonia (recurrent)
CPT/HCPCS: 36415; 71046; 80053; 81003; 83605; 83735; 83880; 84484; 85025; 85379; 86140; 87040; 93005; 94640; 99284; 99406; A9270-GY; G0378; J1644; J2920; J3475

== ENCOUNTER 2020-01-18 08:32 | Observation (INO) ==
[2020-01-18] MEDS ORDERED: Magnesium Sulfate IV 0.5 GM/ML 2 ml VIAL (1 gm) IVPB ONE (08:53)
[2020-01-18] MEDS ORDERED: methylPREDNISolone 125 mg 2 ML VIAL IV ONE (08:53)
[2020-01-18] MEDS ORDERED: Magnesium Sulfate 2 gm BAG 2 GM/50 ML BAG IVPB ONE (09:08)
[2020-01-18] MEDS ORDERED: Magnesium Sulfate 2 gm BAG 2 GM/50 ML BAG ONE (09:08)
[2020-01-18 10:26] LABS: ABS Basophils 0.1 10^3/ul (0-0.2); ABS Eosinophils 0.2 10^3/ul (0-0.6); ABS Lymphocytes 1.6 10^3/ul (1.0-4.8); ABS Neutrophils 14.5 10^3/ul (1.5-7.7); Eosinophil % 1.2 %; Hematocrit 39 % (35-47); Hemoglobin 12.5 g/dL (12.0-16.0); Lymphocyte % 9.1 %; Mean Corpuscular HGB Conc 33 g/dL (31-36); Mean Corpuscular Hemoglobin 29 pg (27-31); Mean Corpuscular Volume 90 fL (80-97); Mean Platelet Volume 8.1 fL (7.4-10.4); Platelet Count 252 10^3/uL (150-450); Red Blood Count 4.28 10^6 /uL (3.70-4.87); Red Cell Distribution Width 14 % (10-15); White Blood Count 17.4 10^3/uL (3.5-10.8)
[2020-01-18] MEDS ORDERED: Albuterol HFA INHALER 8 gm MDI INH ONE (10:39)
[2020-01-18 10:44] LABS: Albumin/Globulin Ratio 1.6 (1-3); BUN/Creatinine Ratio 22.2 (8-20); Calcium 8.8 mg/dL (8.6-10.3); EGFR African American 85.3 (>60); EGFR Non-African American 70.5 (>60); Globulin 2.5 g/dL (2-4); Magnesium 2.3 mg/dL (1.9-2.7); Potassium 3.9 mmol/L (3.5-5.0); Total Bilirubin 0.7 mg/dL (0.2-1.0); Total Protein 6.5 g/dL (6.4-8.9)
[2020-01-18 10:46] LABS: Influenza A Molecular Negative (Negative); Influenza B Molecular Negative (Negative)
[2020-01-18 10:46] LABS: Troponin I 0.01 ng/mL (<0.03)
[2020-01-18] MEDS ORDERED: DOXYcycline 100 MG in NS 0.9% 250 ml 250 ML IVPB ONE (11:22)
[2020-01-18] MEDS ORDERED: NS 0.9% 250 ml 250 ML ONE (12:19)
[2020-01-18] MEDS ORDERED: Al Hydrox/Mg Hydrox/Simet LIQ 30 ML UDC PO PRN (12:22)
[2020-01-18] MEDS ORDERED: Albuterol 2.5mg/3 ml (0.083%) NEB.SOLN INH PRN (12:22)
[2020-01-18] MEDS: Albuterol/Ipratropium NEB.SOL (2.5/0.5 MG) 3 ML NEB.SOLN INH SCH ×2 (13:05→18:22)
[2020-01-18] MEDS: Heparin 5000 UNITS/ML 1 mL VIAL SUBCUT SCH ×2 (13:06→22:13)
[2020-01-18] MEDS: methylPREDNISolone SOD 40 mg/ml 1 ml VIAL IV SCH (17:49)
[2020-01-19] MEDS: Albuterol/Ipratropium NEB.SOL (2.5/0.5 MG) 3 ML NEB.SOLN INH SCH ×3 (01:40→13:03)
[2020-01-19] MEDS: methylPREDNISolone SOD 40 mg/ml 1 ml VIAL IV SCH ×2 (03:11→10:51)
[2020-01-19] MEDS: Heparin 5000 UNITS/ML 1 mL VIAL SUBCUT SCH (06:19)
[2020-01-19 06:33] LABS: ABS Eosinophils 0.1 10^3/ul (0-0.6); ABS Lymphocytes 0.8 10^3/ul (1.0-4.8); ABS Monocytes 0.6 10^3/ul (0-0.8); ABS Neutrophils 14.8 10^3/ul (1.5-7.7); Eosinophil % 0.4 %; Hematocrit 36 % (35-47); Hemoglobin 12.2 g/dL (12.0-16.0); Lymphocyte % 4.7 %; Mean Corpuscular HGB Conc 34 g/dL (31-36); Mean Corpuscular Hemoglobin 31 pg (27-31); Mean Corpuscular Volume 89 fL (80-97); Mean Platelet Volume 8.6 fL (7.4-10.4); Platelet Count 246 10^3/uL (150-450); Red Blood Count 3.98 10^6 /uL (3.70-4.87); Red Cell Distribution Width 14 % (10-15); White Blood Count 16.3 10^3/uL (3.5-10.8)
[2020-01-19 10:56] VITALS: BP 116/53
== END 2020-01-19 12:35 | disposition home or self-care (01) ==
LOC: MED 08:32 → ED 08:32 → MED 16:46
PROVIDERS: ADMIT Internal Medicine; ATTEND Internal Medicine

== ENCOUNTER 2020-02-18 06:59 | Inpatient (IN) ==
[2020-02-18] MEDS ORDERED: Albuterol HFA INHALER 8 gm MDI INH ONE (07:19)
[2020-02-18 07:58] LABS: ABS Basophils 0.1 10^3/ul (0-0.2); ABS Eosinophils 0.3 10^3/ul (0-0.6); ABS Lymphocytes 1.9 10^3/ul (1.0-4.8); ABS Neutrophils 11.5 10^3/ul (1.5-7.7); Eosinophil % 2.1 %; Hematocrit 36 % (35-47); Hemoglobin 11.9 g/dL (12.0-16.0); Mean Corpuscular HGB Conc 33 g/dL (31-36); Mean Corpuscular Hemoglobin 30 pg (27-31); Mean Corpuscular Volume 91 fL (80-97); Mean Platelet Volume 8.4 fL (7.4-10.4); Platelet Count 284 10^3/uL (150-450); Red Blood Count 3.94 10^6 /uL (3.70-4.87); Red Cell Distribution Width 15 % (10-15); White Blood Count 14.9 10^3/uL (3.5-10.8)
[2020-02-18 08:15] LABS: Influenza A Molecular Negative (Negative); Influenza B Molecular Negative (Negative)
[2020-02-18 08:16] LABS: ALT 19 U/L (7-52); Albumin/Globulin Ratio 1.8 (1-3); Alkaline Phosphatase 60 U/L (34-104); Blood Urea Nitrogen 16 mg/dL (6-24); C Reactive Protein 7.21 mg/L (<8.01); CO2 Carbon Dioxide 35 mmol/L (22-32); Calcium 8.9 mg/dL (8.6-10.3); Chloride 98 mmol/L (101-111); EGFR African American 86.6 (>60); EGFR Non-African American 71.5 (>60); Globulin 2.2 g/dL (2-4); Glucose 96 mg/dL (70-100); Sodium 139 mmol/L (135-145); Total Protein 6.2 g/dL (6.4-8.9)
[2020-02-18 08:36] LABS: Anion Gap 6 mmol/L (2-11)
[2020-02-18 09:34] LABS: Potassium Redraw 3.9 mmol/L (3.5-5.0)
[2020-02-18] MEDS ORDERED: methylPREDNISolone SOD 40 mg/ml 1 ml VIAL IV SCH (11:00)
[2020-02-18] MEDS: Azithromycin 500 mg/250 ml NS 500 MG/250 ML BAG IVPB SCH (12:38)
[2020-02-18] MEDS: Enoxaparin 40 MG/0.4 ML SYR SUBCUT SCH (13:11)
[2020-02-18] MEDS: SPIRIVA Respimat (tiotropium) 2.5 mcg/inh Inhaler INH SCH ×2 (14:47→15:02)
[2020-02-18] MEDS: Albuterol/Ipratropium NEB.SOL (2.5/0.5 MG) 3 ML NEB.SOLN INH PRN ×2 (14:48→21:09)
[2020-02-18] MEDS: methylPREDNISolone SOD 40 mg/ml 1 ml VIAL IV SCH (20:35)
[2020-02-19] MEDS: Albuterol HFA INHALER 8 gm MDI INH PRN (04:08)
[2020-02-19] MEDS: methylPREDNISolone SOD 40 mg/ml 1 ml VIAL IV SCH ×3 (04:10→20:24)
[2020-02-19] MEDS: Albuterol/Ipratropium NEB.SOL (2.5/0.5 MG) 3 ML NEB.SOLN INH PRN (04:40)
[2020-02-19] MEDS: SPIRIVA Respimat (tiotropium) 2.5 mcg/inh Inhaler INH SCH (07:54)
[2020-02-19] MEDS ORDERED: Albuterol 2.5mg/3 ml (0.083%) NEB.SOLN INH ONE ×2 (09:00→09:12)
[2020-02-19] MEDS: Albuterol 2.5mg/3 ml (0.083%) NEB.SOLN INH SCH ×5 (09:47→23:41)
[2020-02-19] MEDS ORDERED: Albuterol 2.5mg/3 ml (0.083%) NEB.SOLN INH SCH (10:00)
[2020-02-19] MEDS: Enoxaparin 40 MG/0.4 ML SYR SUBCUT SCH (10:28)
[2020-02-19] MEDS: Azithromycin 500 mg/250 ml NS 500 MG/250 ML BAG IVPB SCH (10:38)
[2020-02-20] MEDS: Albuterol 2.5mg/3 ml (0.083%) NEB.SOLN INH SCH ×6 (03:45→23:20)
[2020-02-20] MEDS: methylPREDNISolone SOD 40 mg/ml 1 ml VIAL IV SCH ×3 (05:26→20:53)
[2020-02-20] MEDS: SPIRIVA Respimat (tiotropium) 2.5 mcg/inh Inhaler INH SCH (08:29)
[2020-02-20] MEDS: Azithromycin 500 mg/250 ml NS 500 MG/250 ML BAG IVPB SCH (11:27)
[2020-02-20] MEDS: Enoxaparin 40 MG/0.4 ML SYR SUBCUT SCH (12:51)
[2020-02-21] MEDS: Albuterol 2.5mg/3 ml (0.083%) NEB.SOLN INH SCH ×6 (03:28→23:48)
[2020-02-21] MEDS: methylPREDNISolone SOD 40 mg/ml 1 ml VIAL IV SCH ×3 (05:54→20:06)
[2020-02-21] MEDS: Albuterol HFA INHALER 8 gm MDI INH PRN (06:08)
[2020-02-21] MEDS: SPIRIVA Respimat (tiotropium) 2.5 mcg/inh Inhaler INH SCH (07:45)
[2020-02-21] MEDS: Azithromycin 500 mg/250 ml NS 500 MG/250 ML BAG IVPB SCH (11:41)
[2020-02-21] MEDS: Enoxaparin 40 MG/0.4 ML SYR SUBCUT SCH (12:15)
[2020-02-22] MEDS: methylPREDNISolone SOD 40 mg/ml 1 ml VIAL IV SCH ×4 (00:32→22:38)
[2020-02-22] MEDS: Albuterol 2.5mg/3 ml (0.083%) NEB.SOLN INH SCH ×6 (03:01→23:12)
[2020-02-22] MEDS: Albuterol HFA INHALER 8 gm MDI INH PRN (05:52)
[2020-02-22] MEDS: SPIRIVA Respimat (tiotropium) 2.5 mcg/inh Inhaler INH SCH (08:35)
[2020-02-22] MEDS: Azithromycin 500 mg/250 ml NS 500 MG/250 ML BAG IVPB SCH (11:05)
[2020-02-22] MEDS: Enoxaparin 40 MG/0.4 ML SYR SUBCUT SCH (11:10)
[2020-02-23] MEDS: Albuterol 2.5mg/3 ml (0.083%) NEB.SOLN INH SCH ×3 (03:42→10:53)
[2020-02-23] MEDS: SPIRIVA Respimat (tiotropium) 2.5 mcg/inh Inhaler INH SCH (07:45)
[2020-02-23 08:21] VITALS: BP 125/59
[2020-02-23] MEDS ORDERED: Magnesium Hydroxide LIQ 30 ML UDC PO ONE (09:44)
== END 2020-02-23 11:30 | disposition home or self-care (01) | DRG 190 ==
LOC: ED 06:59 → MED 10:13
PROVIDERS: ADMIT Internal Medicine; ATTEND Student in an Organized Health Care Education/Training Program

== ENCOUNTER 2020-03-29 19:10 | Inpatient (IN) ==
[2020-03-29] MEDS ORDERED: Furosemide 40 mg/4 ml IV VIAL IV SLOW PU ONE (19:36)
[2020-03-29 20:22] LABS: ABS Basophils 0.1 10^3/ul (0-0.2); ABS Monocytes 1.1 10^3/ul (0-0.8); ABS Neutrophils 13.2 10^3/ul (1.5-7.7); Eosinophil % 0.3 %; Hematocrit 35 % (35-47); Hemoglobin 11.6 g/dL (12.0-16.0); Lymphocyte % 12.5 %; Mean Corpuscular HGB Conc 33 g/dL (31-36); Mean Corpuscular Hemoglobin 30 pg (27-31); Mean Corpuscular Volume 91 fL (80-97); Mean Platelet Volume 8.1 fL (7.4-10.4); Platelet Count 278 10^3/uL (150-450); Red Blood Count 3.85 10^6 /uL (3.70-4.87); Red Cell Distribution Width 15 % (10-15); White Blood Count 16.4 10^3/uL (3.5-10.8)
[2020-03-29 20:39] LABS: Albumin 3.8 g/dL (3.2-5.2); Albumin/Globulin Ratio 1.8 (1-3); Calcium 9.2 mg/dL (8.6-10.3); EGFR African American 91.8 (>60); EGFR Non-African American 75.9 (>60); Globulin 2.1 g/dL (2-4); Total Bilirubin 0.5 mg/dL (0.2-1.0); Total Protein 5.9 g/dL (6.4-8.9)
[2020-03-30] MEDS: Albuterol HFA INHALER 8 gm MDI INH PRN ×2 (01:43→11:04)
[2020-03-30] MEDS ORDERED: Albuterol/Ipratropium NEB.SOL (2.5/0.5 MG) 3 ML NEB.SOLN INH ONE (01:44)
[2020-03-30] MEDS ORDERED: Albuterol/Ipratropium NEB.SOL (2.5/0.5 MG) 3 ML NEB.SOLN ONE (01:46)
[2020-03-30] MEDS ORDERED: Albuterol/Ipratropium NEB.SOL (2.5/0.5 MG) 3 ML NEB.SOLN INH PRN (02:50)
[2020-03-30] MEDS ORDERED: methylPREDNISolone SOD 40 mg/ml 1 ml VIAL IV SCH ×2 (03:30→18:05)
[2020-03-30] MEDS: Azithromycin 500 mg/250 ml NS 500 MG/250 ML BAG IVPB SCH (04:55)
[2020-03-30 07:16] LABS: ABS Basophils 0.1 10^3/ul (0-0.2); ABS Eosinophils 0.1 10^3/ul (0-0.6); ABS Lymphocytes 1.2 10^3/ul (1.0-4.8); ABS Monocytes 0.7 10^3/ul (0-0.8); ABS Neutrophils 15.7 10^3/ul (1.5-7.7); Eosinophil % 0.3 %; Hematocrit 35 % (35-47); Hemoglobin 11.4 g/dL (12.0-16.0); Lymphocyte % 6.8 %; Mean Corpuscular HGB Conc 33 g/dL (31-36); Mean Corpuscular Hemoglobin 30 pg (27-31); Mean Corpuscular Volume 91 fL (80-97); Mean Platelet Volume 7.8 fL (7.4-10.4); Platelet Count 257 10^3/uL (150-450); Red Blood Count 3.79 10^6 /uL (3.70-4.87); Red Cell Distribution Width 15 % (10-15); White Blood Count 17.8 10^3/uL (3.5-10.8)
[2020-03-30] MEDS: SPIRIVA Respimat (tiotropium) 2.5 mcg/inh Inhaler INH SCH (07:25)
[2020-03-30 07:32] LABS: BUN/Creatinine Ratio 27.2 (8-20); Calcium 8.7 mg/dL (8.6-10.3); EGFR African American 85.3 (>60); EGFR Non-African American 70.5 (>60); Potassium 3.8 mmol/L (3.5-5.0)
[2020-03-30] MEDS: Triamcinolone 0.025% OINT 15 GM TUBE TOPICAL SCH ×2 (09:41→20:16)
[2020-03-30 16:07] LABS: C Reactive Protein 7.24 mg/L (<8.01)
[2020-03-30] MEDS: Albuterol/Ipratropium NEB.SOL (2.5/0.5 MG) 3 ML NEB.SOLN INH SCH (20:05)
[2020-03-31] MEDS ORDERED: Enoxaparin 40 MG/0.4 ML SYR SUBCUT SCH (01:00)
[2020-03-31] MEDS: Albuterol/Ipratropium NEB.SOL (2.5/0.5 MG) 3 ML NEB.SOLN INH SCH ×2 (06:02→13:04)
[2020-03-31] MEDS: SPIRIVA Respimat (tiotropium) 2.5 mcg/inh Inhaler INH SCH (07:48)
[2020-03-31] MEDS: Azithromycin 500 mg/250 ml NS 500 MG/250 ML BAG IVPB SCH (08:50)
[2020-03-31] MEDS: Triamcinolone 0.025% OINT 15 GM TUBE TOPICAL SCH (08:52)
[2020-03-31 09:01] VITALS: BP 127/67
== END 2020-03-31 14:45 | disposition home or self-care (01) | DRG 190 ==
LOC: ED 19:10 → MED 23:15
PROVIDERS: ADMIT Internal Medicine; ATTEND Internal Medicine

== ENCOUNTER 2020-05-20 19:09 | Inpatient (IN) ==
[2020-05-20 20:20] LABS: ABS Basophils 0.1 10^3/ul (0-0.2); ABS Eosinophils 0.1 10^3/ul (0-0.6); ABS Monocytes 1.2 10^3/ul (0-0.8); ABS Neutrophils 13.8 10^3/ul (1.5-7.7); Eosinophil % 0.4 %; Hematocrit 35 % (35-47); Hemoglobin 11.8 g/dL (12.0-16.0); Lymphocyte % 11.8 %; Mean Corpuscular HGB Conc 34 g/dL (31-36); Mean Corpuscular Hemoglobin 31 pg (27-31); Mean Corpuscular Volume 90 fL (80-97); Mean Platelet Volume 7.8 fL (7.4-10.4); Platelet Count 269 10^3/uL (150-450); Red Blood Count 3.88 10^6 /uL (3.70-4.87); Red Cell Distribution Width 14 % (10-15); White Blood Count 17.2 10^3/uL (3.5-10.8)
[2020-05-20 20:30] LABS: INR 0.97 (0.82-1.09)
[2020-05-20 20:36] LABS: Albumin 3.9 g/dL (3.2-5.2); Albumin/Globulin Ratio 1.7 (1-3); BUN/Creatinine Ratio 25.7 (8-20); C Reactive Protein 15.34 mg/L (<8.01); Calcium 9.2 mg/dL (8.6-10.3); EGFR African American 94.7 (>60); EGFR Non-African American 78.3 (>60); Globulin 2.3 g/dL (2-4); Total Bilirubin 0.4 mg/dL (0.2-1.0); Total Protein 6.2 g/dL (6.4-8.9)
[2020-05-20 20:37] LABS: Influenza A Molecular Negative (Negative); Influenza B Molecular Negative (Negative)
[2020-05-20 20:38] LABS: Troponin I 0.01 ng/mL (<0.03)
[2020-05-20 21:39] LABS: Potassium 3.7 mmol/L (3.5-5.0)
[2020-05-20] MEDS ORDERED: Bumetanide IV 0.25 MG/ML 4 ml VIAL (1 mg) SLOW PUSH ONE (21:57)
[2020-05-21] MEDS ORDERED: Albuterol/Ipratropium NEB.SOL (2.5/0.5 MG) 3 ML NEB.SOLN INH PRN (00:03)
[2020-05-21] MEDS ORDERED: methylPREDNISolone 125 mg 2 ML VIAL IV ONE (00:03)
[2020-05-21] MEDS ORDERED: Albuterol 2.5mg/3 ml (0.083%) NEB.SOLN INH ONE (00:09)
[2020-05-21] MEDS ORDERED: Albuterol 2.5mg/3 ml (0.083%) NEB.SOLN INH PRN (00:18)
[2020-05-21] MEDS ORDERED: Ondansetron 4 mg VIAL 2 MG/ML 2 ml VIAL IV PRN (00:56)
[2020-05-21] MEDS ORDERED: LORazepam 2 mg VIAL 1 ml IV PUSH PRN (00:57)
[2020-05-21] MEDS ORDERED: Lorazepam PYXIS KEY PRN (00:57)
[2020-05-21] MEDS ORDERED: Nicotine GUM 2MG FRUIT FLAVOR PO PRN (03:51)
[2020-05-21] MEDS ORDERED: methylPREDNISolone SOD 40 mg/ml 1 ml VIAL IV SCH (07:30)
[2020-05-21] MEDS ORDERED: Furosemide 40 mg/4 ml IV VIAL IV SLOW PU SCH (08:00)
[2020-05-21] MEDS: Enoxaparin 40 MG/0.4 ML SYR SUBCUT SCH (08:55)
[2020-05-21] MEDS: SPIRIVA Respimat (tiotropium) 2.5 mcg/inh Inhaler INH SCH (10:13)
[2020-05-21] MEDS ORDERED: Albuterol HFA INHALER 8 gm MDI INH PRN (11:00)
[2020-05-21 11:27] LABS: ABS Lymphocytes 0.5 10^3/ul (1.0-4.8); ABS Monocytes 0.1 10^3/ul (0-0.8); ABS Neutrophils 12.4 10^3/ul (1.5-7.7); Hematocrit 36 % (35-47); Lymphocyte % 3.7 %; Mean Corpuscular HGB Conc 34 g/dL (31-36); Mean Corpuscular Hemoglobin 31 pg (27-31); Mean Corpuscular Volume 91 fL (80-97); Mean Platelet Volume 7.9 fL (7.4-10.4); Platelet Count 263 10^3/uL (150-450); Red Blood Count 3.92 10^6 /uL (3.70-4.87); Red Cell Distribution Width 14 % (10-15)
[2020-05-21 11:52] LABS: BUN/Creatinine Ratio 28.4 (8-20); EGFR African American 85.3 (>60); EGFR Non-African American 70.5 (>60); Potassium 3.7 mmol/L (3.5-5.0)
[2020-05-21] MEDS: Albuterol 2.5mg/3 ml (0.083%) NEB.SOLN INH PRN (22:37)
[2020-05-22] MEDS: Albuterol 2.5mg/3 ml (0.083%) NEB.SOLN INH PRN ×2 (05:55→21:48)
[2020-05-22 07:05] LABS: Albumin 3.9 g/dL (3.2-5.2); Albumin/Globulin Ratio 1.7 (1-3); C Reactive Protein 10.29 mg/L (<8.01); Calcium 9.5 mg/dL (8.6-10.3); EGFR African American 85.3 (>60); EGFR Non-African American 70.5 (>60); Globulin 2.3 g/dL (2-4); Magnesium 2.4 mg/dL (1.9-2.7); Potassium 3.3 mmol/L (3.5-5.0); Total Bilirubin 0.6 mg/dL (0.2-1.0); Total Protein 6.2 g/dL (6.4-8.9)
[2020-05-22 07:08] LABS: Hematocrit 35 % (35-47); Hemoglobin 11.9 g/dL (12.0-16.0); Mean Corpuscular HGB Conc 34 g/dL (31-36); Mean Corpuscular Hemoglobin 31 pg (27-31); Mean Corpuscular Volume 91 fL (80-97); Mean Platelet Volume 7.9 fL (7.4-10.4); Platelet Count 271 10^3/uL (150-450); Red Blood Count 3.88 10^6 /uL (3.70-4.87); Red Cell Distribution Width 14 % (10-15); White Blood Count 17.3 10^3/uL (3.5-10.8)
[2020-05-22 07:24] LABS: ABS Basophils 0.1 10^3/ul (0-0.2); ABS Eosinophils 0.1 10^3/ul (0-0.6); ABS Lymphocytes 2.8 10^3/ul (1.0-4.8); ABS Monocytes 1.5 10^3/ul (0-0.8); ABS Neutrophils 12.9 10^3/ul (1.5-7.7); Eosinophil % 0.5 %
[2020-05-22] MEDS: SPIRIVA Respimat (tiotropium) 2.5 mcg/inh Inhaler INH SCH (08:44)
[2020-05-22] MEDS: Enoxaparin 40 MG/0.4 ML SYR SUBCUT SCH ×2 (10:08→10:12)
[2020-05-22] MEDS ORDERED: Potassium Chlor 20 meq TAB.ER PO ONE ×2 (15:30)
[2020-05-22] MEDS: Potassium Chlor 20 meq TAB.ER PO SCH (18:25)
[2020-05-23] MEDS: Albuterol HFA INHALER 8 gm MDI INH PRN ×2 (06:48→12:48)
[2020-05-23] MEDS: SPIRIVA Respimat (tiotropium) 2.5 mcg/inh Inhaler INH SCH (07:56)
[2020-05-23] MEDS: Potassium Chlor 20 meq TAB.ER PO SCH (09:10)
[2020-05-23] MEDS: Enoxaparin 40 MG/0.4 ML SYR SUBCUT SCH (09:11)
[2020-05-23 10:01] LABS: Hematocrit 36 % (35-47); Hemoglobin 12.4 g/dL (12.0-16.0); Mean Corpuscular HGB Conc 34 g/dL (31-36); Mean Corpuscular Hemoglobin 31 pg (27-31); Mean Corpuscular Volume 91 fL (80-97); Mean Platelet Volume 7.7 fL (7.4-10.4); Platelet Count 281 10^3/uL (150-450); Red Blood Count 4.02 10^6 /uL (3.70-4.87); Red Cell Distribution Width 14 % (10-15); White Blood Count 14.7 10^3/uL (3.5-10.8)
[2020-05-23 10:15] LABS: BUN/Creatinine Ratio 33.3 (8-20); C Reactive Protein 7.68 mg/L (<8.01); Calcium 9.3 mg/dL (8.6-10.3); EGFR African American 89.1 (>60); EGFR Non-African American 73.7 (>60); Potassium 3.6 mmol/L (3.5-5.0)
[2020-05-23] MEDS: Albuterol 2.5mg/3 ml (0.083%) NEB.SOLN INH PRN ×2 (10:18→16:29)
[2020-05-23 16:24] LABS: Magnesium 2.4 mg/dL (1.9-2.7)
[2020-05-24] MEDS: Albuterol 2.5mg/3 ml (0.083%) NEB.SOLN INH PRN ×2 (02:55→08:36)
[2020-05-24 08:10] VITALS: BP 112/69
[2020-05-24] MEDS: Enoxaparin 40 MG/0.4 ML SYR SUBCUT SCH (08:25)
[2020-05-24] MEDS: SPIRIVA Respimat (tiotropium) 2.5 mcg/inh Inhaler INH SCH (08:32)
[2020-05-24 08:36] LABS: BUN/Creatinine Ratio 28.8 (8-20); Calcium 9.1 mg/dL (8.6-10.3); EGFR African American 86.6 (>60); EGFR Non-African American 71.5 (>60); Potassium 4.4 mmol/L (3.5-5.0)
[2020-05-24 09:25] LABS: TSH Ultra Thyroid Stim Horm 1.88 mcIU/mL (0.34-5.60)
== END 2020-05-24 11:30 | disposition home or self-care (01) | DRG 291 ==
LOC: ED 19:09 → MED 05-21 00:58
PROVIDERS: ADMIT Internal Medicine; ATTEND Internal Medicine

== ENCOUNTER 2020-06-19 19:09 | Inpatient (IN) ==
[2020-06-19] MEDS ORDERED: Albuterol HFA INHALER 8 gm MDI INH ONE (19:59)
[2020-06-19 20:06] LABS: ABS Basophils 0.1 10^3/ul (0-0.2); ABS Eosinophils 0.1 10^3/ul (0-0.6); ABS Lymphocytes 2.2 10^3/ul (1.0-4.8); ABS Neutrophils 11.4 10^3/ul (1.5-7.7); Eosinophil % 0.8 %; Hematocrit 34 % (35-47); Hemoglobin 11.3 g/dL (12.0-16.0); Lymphocyte % 14.9 %; Mean Corpuscular HGB Conc 34 g/dL (31-36); Mean Corpuscular Hemoglobin 31 pg (27-31); Mean Corpuscular Volume 91 fL (80-97); Mean Platelet Volume 7.6 fL (7.4-10.4); Platelet Count 266 10^3/uL (150-450); Red Blood Count 3.69 10^6 /uL (3.70-4.87); Red Cell Distribution Width 14 % (10-15); White Blood Count 14.9 10^3/uL (3.5-10.8)
[2020-06-19 20:19] LABS: Influenza A Molecular Negative (Negative); Influenza B Molecular Negative (Negative)
[2020-06-19 20:20] LABS: Albumin 3.9 g/dL (3.2-5.2); Albumin/Globulin Ratio 1.9 (1-3); BUN/Creatinine Ratio 30.6 (8-20); Calcium 9.2 mg/dL (8.6-10.3); EGFR African American 97.8 (>60); EGFR Non-African American 80.8 (>60); Globulin 2.1 g/dL (2-4); Total Bilirubin 0.5 mg/dL (0.2-1.0)
[2020-06-19 20:21] LABS: Troponin I 0.01 ng/mL (<0.03)
[2020-06-19] MEDS ORDERED: methylPREDNISolone SOD 40 mg/ml 1 ml VIAL IV ONE (22:32)
[2020-06-19] MEDS ORDERED: BUMETANIDE 0.5 MG PO PRN (23:12)
[2020-06-20 00:41] LABS: TSH Ultra Thyroid Stim Horm 0.85 mcIU/mL (0.34-5.60)
[2020-06-20] MEDS: methylPREDNISolone SOD 40 mg/ml 1 ml VIAL IV SCH ×3 (04:30→18:06)
[2020-06-20] MEDS: DOXYcycline 100 MG in NS 0.9% 250 ml 250 ML IVPB SCH ×2 (04:32→15:34)
[2020-06-20] MEDS: Enoxaparin 40 MG/0.4 ML SYR SUBCUT SCH (04:32)
[2020-06-20] MEDS: Albuterol HFA INHALER 8 gm MDI INH PRN (06:01)
[2020-06-20] MEDS: SPIRIVA Respimat (tiotropium) 2.5 mcg/inh Inhaler INH SCH (08:07)
[2020-06-20] MEDS: Albuterol 2.5mg/3 ml (0.083%) NEB.SOLN INH SCH ×4 (10:41→20:09)
[2020-06-20] MEDS: Mometasone/Formoter 100/5 MDI INH SCH ×2 (11:20→20:11)
[2020-06-21] MEDS: methylPREDNISolone SOD 40 mg/ml 1 ml VIAL IV SCH ×2 (03:57→16:53)
[2020-06-21] MEDS: DOXYcycline 100 MG in NS 0.9% 250 ml 250 ML IVPB SCH ×2 (03:57→17:02)
[2020-06-21] MEDS: Enoxaparin 40 MG/0.4 ML SYR SUBCUT SCH (04:07)
[2020-06-21] MEDS: Albuterol HFA INHALER 8 gm MDI INH PRN (04:07)
[2020-06-21] MEDS: Albuterol 2.5mg/3 ml (0.083%) NEB.SOLN INH SCH ×3 (05:37→19:29)
[2020-06-21 07:23] LABS: ABS Lymphocytes 0.6 10^3/ul (1.0-4.8); ABS Monocytes 0.6 10^3/ul (0-0.8); Hematocrit 34 % (35-47); Hemoglobin 11.4 g/dL (12.0-16.0); Lymphocyte % 3.7 %; Mean Corpuscular HGB Conc 34 g/dL (31-36); Mean Corpuscular Hemoglobin 31 pg (27-31); Mean Corpuscular Volume 91 fL (80-97); Mean Platelet Volume 7.8 fL (7.4-10.4); Platelet Count 256 10^3/uL (150-450); Red Blood Count 3.71 10^6 /uL (3.70-4.87); Red Cell Distribution Width 14 % (10-15); White Blood Count 16.3 10^3/uL (3.5-10.8)
[2020-06-21] MEDS: SPIRIVA Respimat (tiotropium) 2.5 mcg/inh Inhaler INH SCH (07:57)
[2020-06-21] MEDS: Mometasone/Formoter 100/5 MDI INH SCH (07:58)
[2020-06-21] MEDS ORDERED: FLUTICASONE/UMECLIDIN/VILANTER 1 PUFF MDI INH SCH (09:00)
[2020-06-21] MEDS ORDERED: methylPREDNISolone 125 mg 2 ML VIAL IV SCH (16:00)
[2020-06-22] MEDS: Albuterol 2.5mg/3 ml (0.083%) NEB.SOLN INH SCH ×4 (01:02→20:33)
[2020-06-22] MEDS ORDERED: Albuterol 2.5mg/3 ml (0.083%) NEB.SOLN INH PRN (03:11)
[2020-06-22] MEDS: DOXYcycline 100 MG in NS 0.9% 250 ml 250 ML IVPB SCH (03:42)
[2020-06-22] MEDS: Enoxaparin 40 MG/0.4 ML SYR SUBCUT SCH ×2 (05:00→05:04)
[2020-06-22] MEDS: methylPREDNISolone SOD 40 mg/ml 1 ml VIAL IV SCH ×2 (05:01→18:10)
[2020-06-22 07:08] LABS: BUN/Creatinine Ratio 34.6 (8-20); Calcium 9.1 mg/dL (8.6-10.3); EGFR African American 89.1 (>60); EGFR Non-African American 73.7 (>60); Potassium 4.1 mmol/L (3.5-5.0)
[2020-06-22] MEDS: Albuterol HFA INHALER 8 gm MDI INH PRN ×2 (07:39→10:00)
[2020-06-22] MEDS ORDERED: Albuterol HFA INHALER 8 gm MDI INH PRN (07:46)
[2020-06-22] MEDS: SPIRIVA Respimat (tiotropium) 2.5 mcg/inh Inhaler INH SCH (10:00)
[2020-06-23] MEDS: Albuterol 2.5mg/3 ml (0.083%) NEB.SOLN INH SCH ×4 (00:59→20:05)
[2020-06-23] MEDS: Albuterol 2.5mg/3 ml (0.083%) NEB.SOLN INH PRN ×2 (04:33→10:32)
[2020-06-23] MEDS: Enoxaparin 40 MG/0.4 ML SYR SUBCUT SCH (05:27)
[2020-06-23] MEDS: methylPREDNISolone SOD 40 mg/ml 1 ml VIAL IV SCH (05:28)
[2020-06-23] MEDS: SPIRIVA Respimat (tiotropium) 2.5 mcg/inh Inhaler INH SCH (07:27)
[2020-06-23] MEDS ORDERED: Bumetanide IV 0.25 MG/ML 4 ml VIAL (1 mg) SLOW PUSH ONE (08:44)
[2020-06-23] MEDS ORDERED: Calcium Carb (TUMS) 500 mg CHEW TAB PO ONE (19:41)
[2020-06-24] MEDS: Albuterol 2.5mg/3 ml (0.083%) NEB.SOLN INH SCH ×3 (00:52→07:40)
[2020-06-24] MEDS: Albuterol HFA INHALER 8 gm MDI INH PRN (03:21)
[2020-06-24] MEDS: Enoxaparin 40 MG/0.4 ML SYR SUBCUT SCH (05:41)
[2020-06-24 06:46] LABS: BUN/Creatinine Ratio 36.8 (8-20); Calcium 9.3 mg/dL (8.6-10.3); EGFR African American 78.6 (>60); EGFR Non-African American 64.9 (>60); Potassium 3.3 mmol/L (3.5-5.0)
[2020-06-24] MEDS ORDERED: Potassium Chlor 20 meq TAB.ER PO ONE (07:21)
[2020-06-24] MEDS: SPIRIVA Respimat (tiotropium) 2.5 mcg/inh Inhaler INH SCH (07:40)
[2020-06-24 07:44] LABS: Magnesium 1.9 mg/dL (1.9-2.7)
[2020-06-24 11:50] VITALS: BP 119/61
== END 2020-06-24 12:55 | disposition home health service (06) | DRG 189 ==
LOC: ED 19:09 → MED 23:08 → SUATTDRO 23:08
PROVIDERS: ADMIT Internal Medicine; ATTEND Internal Medicine

== ENCOUNTER 2021-02-07 09:21 | Inpatient (IN) ==
[2021-02-07] MEDS ORDERED: Albuterol/Ipratropium NEB.SOL (2.5/0.5 MG) 3 ML NEB.SOLN ONE (09:25)
[2021-02-07] MEDS ORDERED: methylPREDNISolone 125 mg 2 ML VIAL ONE (09:30)
[2021-02-07] MEDS ORDERED: methylPREDNISolone 125 mg 2 ML VIAL IV ONE (09:33)
[2021-02-07] MEDS ORDERED: Albuterol/Ipratropium NEB.SOL (2.5/0.5 MG) 3 ML NEB.SOLN INH ONE ×3 (09:34→09:35)
[2021-02-07 09:49] LABS: PCO2 Arterial 62 mmHg (35-45); PO2 Arterial 93 mmHg (80-100)
[2021-02-07 09:51] LABS: ABS Eosinophils 0.1 10^3/ul (0-0.6); ABS Monocytes 1.4 10^3/ul (0-0.8); ABS Neutrophils 10.8 10^3/ul (1.5-7.7); Eosinophil % 0.8 %; Hematocrit 37 % (35-47); Lymphocyte % 19.7 %; Mean Corpuscular HGB Conc 33 g/dL (31-36); Mean Corpuscular Hemoglobin 31 pg (27-31); Mean Corpuscular Volume 95 fL (80-97); Mean Platelet Volume 7.4 fL (7.4-10.4); Platelet Count 315 10^3/uL (150-450); Red Blood Count 3.87 10^6 /uL (3.70-4.87); Red Cell Distribution Width 14 % (10-15); White Blood Count 15.4 10^3/uL (3.5-10.8)
[2021-02-07] MEDS ORDERED: cefTRIAXone 1 gm/50 mL NS BAG 1 GM/50 ML BAG IV ONE (09:56)
[2021-02-07 09:58] LABS: Activated Partial Thrombo Time 24.4 seconds (26.0-38.0); INR 0.95 (0.86-1.15)
[2021-02-07 10:08] LABS: ALT 27 U/L (7-52); AST 18 U/L (13-39); Albumin 4.2 g/dL (3.2-5.2); Albumin/Globulin Ratio 1.8 (1-3); Alkaline Phosphatase 69 U/L (35-149); Anion Gap 7 mmol/L (2-11); Blood Urea Nitrogen 31 mg/dL (6-24); C Reactive Protein 6.47 mg/L (<8.01); CO2 Carbon Dioxide 33 mmol/L (22-32); Calcium 9.3 mg/dL (8.6-10.3); Chloride 100 mmol/L (101-111); Globulin 2.3 g/dL (2-4); Glucose 83 mg/dL (70-100); Potassium 4.5 mmol/L (3.5-5.0); Sodium 140 mmol/L (135-145); Total Protein 6.5 g/dL (6.4-8.9)
[2021-02-07 10:12] LABS: Troponin I 0.03 ng/mL (<0.03)
[2021-02-07] MEDS ORDERED: Lactated Ringers 1000 ml BAG 1,000 ML IV ONE (10:23)
[2021-02-07 11:23] LABS: Rapid COVID-19 Molecular Undetected (Undetected)
[2021-02-07] MEDS ORDERED: Albuterol/Ipratropium NEB.SOL (2.5/0.5 MG) 3 ML NEB.SOLN INH PRN (14:40)
[2021-02-07] MEDS: Enoxaparin 40 MG/0.4 ML SYR SUBCUT SCH (17:07)
[2021-02-07] MEDS: DOXYcycline 100 MG in NS 0.9% 250 ml 250 ML IVPB SCH (17:08)
[2021-02-07 17:34] LABS: Troponin I 0.06 ng/mL (<0.03)
[2021-02-07 18:44] LABS: Urine Appearance Clear; Urine Bilirubin Negative (Negative); Urine Blood Negative (Negative); Urine Color Yellow; Urine Glucose 1+(50 mg/dL) (Negative); Urine Ketones 1+ (Negative); Urine Nitrite Negative (Negative); Urine Protein Negative (Negative); Urine Specific Gravity 1.019 (1.002-1.030); Urine Urobilinogen Negative (Negative)
[2021-02-07] MEDS: Albuterol/Ipratropium NEB.SOL (2.5/0.5 MG) 3 ML NEB.SOLN INH SCH ×2 (19:24→23:46)
[2021-02-07] MEDS ORDERED: Famotidine IV 10 MG/ML 2 ml VIAL (20 mg) IV SLOW PU SCH (21:00)
[2021-02-07 22:01] LABS: Troponin I 0.09 ng/mL (<0.03)
[2021-02-08] MEDS: Albuterol/Ipratropium NEB.SOL (2.5/0.5 MG) 3 ML NEB.SOLN INH SCH ×4 (03:39→14:29)
[2021-02-08 04:28] LABS: ABS Neutrophils 12.4 10^3/ul (1.5-7.7); Hematocrit 32 % (35-47); Hemoglobin 10.7 g/dL (12.0-16.0); Lymphocyte % 6.7 %; Mean Corpuscular HGB Conc 33 g/dL (31-36); Mean Corpuscular Hemoglobin 31 pg (27-31); Mean Corpuscular Volume 93 fL (80-97); Mean Platelet Volume 7.3 fL (7.4-10.4); Platelet Count 273 10^3/uL (150-450); Red Blood Count 3.48 10^6 /uL (3.70-4.87); Red Cell Distribution Width 14 % (10-15); White Blood Count 14.4 10^3/uL (3.5-10.8)
[2021-02-08] MEDS: DOXYcycline 100 MG in NS 0.9% 250 ml 250 ML IVPB SCH ×2 (04:40→17:49)
[2021-02-08 04:47] LABS: Anion Gap 4 mmol/L (2-11); Blood Urea Nitrogen 27 mg/dL (6-24); CO2 Carbon Dioxide 33 mmol/L (22-32); Chloride 102 mmol/L (101-111); Glucose 124 mg/dL (70-100); Magnesium 2.3 mg/dL (1.9-2.7); Phosphorus 3.6 mg/dL (2.5-5.0); Potassium 4.2 mmol/L (3.5-5.0); Sodium 139 mmol/L (135-145)
[2021-02-08 05:05] LABS: Troponin I 0.05 ng/mL (<0.03)
[2021-02-08 05:15] LABS: TSH Ultra Thyroid Stim Horm 0.26 mcIU/mL (0.34-5.60)
[2021-02-08] MEDS ORDERED: methylPREDNISolone SOD 40 mg/ml 1 ml VIAL IV SCH (09:00)
[2021-02-08] MEDS: Enoxaparin 40 MG/0.4 ML SYR SUBCUT SCH (21:33)
[2021-02-09] MEDS ORDERED: Albuterol/Ipratropium NEB.SOL (2.5/0.5 MG) 3 ML NEB.SOLN INH PRN (00:40)
[2021-02-09] MEDS: Albuterol HFA INHALER 8 gm MDI INH PRN ×2 (04:48→07:50)
[2021-02-09] MEDS: SPIRIVA Respimat (tiotropium) 2.5 mcg/inh Inhaler INH SCH (07:53)
[2021-02-09 10:54] LABS: Hematocrit 34 % (35-47); Hemoglobin 11.3 g/dL (12.0-16.0); Mean Corpuscular HGB Conc 34 g/dL (31-36); Mean Corpuscular Hemoglobin 32 pg (27-31); Mean Corpuscular Volume 94 fL (80-97); Mean Platelet Volume 7.9 fL (7.4-10.4); Platelet Count 288 10^3/uL (150-450); Red Blood Count 3.58 10^6 /uL (3.70-4.87); Red Cell Distribution Width 15 % (10-15); White Blood Count 17.9 10^3/uL (3.5-10.8)
[2021-02-09] MEDS ORDERED: Albuterol/Ipratropium NEB.SOL (2.5/0.5 MG) 3 ML NEB.SOLN INH SCH (11:00)
[2021-02-09 11:05] LABS: Calcium 9.1 mg/dL (8.6-10.3); Phosphorus 3.1 mg/dL (2.5-5.0); Potassium 3.6 mmol/L (3.5-5.0)
[2021-02-09 11:10] LABS: ABS Basophils 0.1 10^3/ul (0-0.2); ABS Eosinophils 0.1 10^3/ul (0-0.6); ABS Lymphocytes 2.1 10^3/ul (1.0-4.8); ABS Monocytes 1.6 10^3/ul (0-0.8); Eosinophil % 0.8 %; Lymphocyte % 11.9 %
[2021-02-09] MEDS: methylPREDNISolone SOD 40 mg/ml 1 ml VIAL IV SCH ×2 (11:16→21:58)
[2021-02-09] MEDS: Albuterol 2.5mg/3 ml (0.083%) NEB.SOLN INH SCH ×2 (13:04→20:27)
[2021-02-09] MEDS: Enoxaparin 40 MG/0.4 ML SYR SUBCUT SCH (21:20)
[2021-02-10] MEDS: Albuterol HFA INHALER 8 gm MDI INH PRN (00:50)
[2021-02-10] MEDS: Albuterol 2.5mg/3 ml (0.083%) NEB.SOLN INH SCH ×4 (00:55→19:52)
[2021-02-10 07:03] LABS: ABS Lymphocytes 0.6 10^3/ul (1.0-4.8); ABS Monocytes 0.4 10^3/ul (0-0.8); ABS Neutrophils 13.8 10^3/ul (1.5-7.7); Hematocrit 33 % (35-47); Hemoglobin 11.1 g/dL (12.0-16.0); Lymphocyte % 3.8 %; Mean Corpuscular HGB Conc 33 g/dL (31-36); Mean Corpuscular Hemoglobin 31 pg (27-31); Mean Corpuscular Volume 94 fL (80-97); Mean Platelet Volume 7.9 fL (7.4-10.4); Platelet Count 262 10^3/uL (150-450); Red Blood Count 3.55 10^6 /uL (3.70-4.87); Red Cell Distribution Width 14 % (10-15); White Blood Count 14.8 10^3/uL (3.5-10.8)
[2021-02-10 07:11] LABS: Calcium 8.6 mg/dL (8.6-10.3); Potassium 4.3 mmol/L (3.5-5.0)
[2021-02-10] MEDS: SPIRIVA Respimat (tiotropium) 2.5 mcg/inh Inhaler INH SCH (08:19)
[2021-02-10] MEDS: methylPREDNISolone SOD 40 mg/ml 1 ml VIAL IV SCH ×2 (08:31→10:03)
[2021-02-10] MEDS ORDERED: Magnesium Hydroxide LIQ 30 ML UDC PO PRN (11:31)
[2021-02-10] MEDS: Enoxaparin 40 MG/0.4 ML SYR SUBCUT SCH (22:36)
[2021-02-11] MEDS: Albuterol 2.5mg/3 ml (0.083%) NEB.SOLN INH SCH ×4 (02:36→20:25)
[2021-02-11] MEDS: SPIRIVA Respimat (tiotropium) 2.5 mcg/inh Inhaler INH SCH (07:12)
[2021-02-11 08:18] LABS: ABS Basophils 0.1 10^3/ul (0-0.2); ABS Eosinophils 0.1 10^3/ul (0-0.6); ABS Lymphocytes 2.3 10^3/ul (1.0-4.8); ABS Monocytes 1.5 10^3/ul (0-0.8); ABS Neutrophils 13.8 10^3/ul (1.5-7.7); Eosinophil % 0.8 %; Hematocrit 36 % (35-47); Mean Corpuscular HGB Conc 33 g/dL (31-36); Mean Corpuscular Hemoglobin 31 pg (27-31); Mean Corpuscular Volume 93 fL (80-97); Mean Platelet Volume 7.5 fL (7.4-10.4); Platelet Count 286 10^3/uL (150-450); Red Blood Count 3.89 10^6 /uL (3.70-4.87); Red Cell Distribution Width 14 % (10-15); White Blood Count 17.8 10^3/uL (3.5-10.8)
[2021-02-11 08:34] LABS: Calcium 8.8 mg/dL (8.6-10.3); Magnesium 2.4 mg/dL (1.9-2.7); Potassium 3.9 mmol/L (3.5-5.0)
[2021-02-11] MEDS: methylPREDNISolone SOD 40 mg/ml 1 ml VIAL IV SCH ×2 (08:49→12:17)
[2021-02-11] MEDS: Albuterol HFA INHALER 8 gm MDI INH PRN ×3 (12:52→20:10)
[2021-02-11] MEDS: Enoxaparin 40 MG/0.4 ML SYR SUBCUT SCH (20:16)
[2021-02-12] MEDS: Albuterol 2.5mg/3 ml (0.083%) NEB.SOLN INH SCH ×4 (01:04→19:46)
[2021-02-12 04:47] LABS: ABS Monocytes 1.1 10^3/ul (0-0.8); ABS Neutrophils 15.5 10^3/ul (1.5-7.7); Eosinophil % 0.1 %; Hematocrit 34 % (35-47); Hemoglobin 11.5 g/dL (12.0-16.0); Lymphocyte % 5.6 %; Mean Corpuscular HGB Conc 33 g/dL (31-36); Mean Corpuscular Hemoglobin 31 pg (27-31); Mean Corpuscular Volume 93 fL (80-97); Mean Platelet Volume 7.7 fL (7.4-10.4); Platelet Count 260 10^3/uL (150-450); Red Blood Count 3.69 10^6 /uL (3.70-4.87); Red Cell Distribution Width 14 % (10-15); White Blood Count 17.7 10^3/uL (3.5-10.8)
[2021-02-12 05:12] LABS: Calcium 8.8 mg/dL (8.6-10.3); Magnesium 2.4 mg/dL (1.9-2.7); Potassium 4.2 mmol/L (3.5-5.0)
[2021-02-12] MEDS: SPIRIVA Respimat (tiotropium) 2.5 mcg/inh Inhaler INH SCH (08:44)
[2021-02-12] MEDS: methylPREDNISolone SOD 40 mg/ml 1 ml VIAL IV SCH (09:16)
[2021-02-12] MEDS ORDERED: COVID-19 VACCINE, AD26(JANSSEN)/PF 0.5 ML IM ONE (14:00)
[2021-02-12] MEDS: Albuterol HFA INHALER 8 gm MDI INH PRN (17:11)
[2021-02-12] MEDS: Enoxaparin 40 MG/0.4 ML SYR SUBCUT SCH (21:12)
[2021-02-13] MEDS: Albuterol 2.5mg/3 ml (0.083%) NEB.SOLN INH SCH ×3 (01:39→13:39)
[2021-02-13] MEDS: Albuterol HFA INHALER 8 gm MDI INH PRN (03:54)
[2021-02-13] MEDS: SPIRIVA Respimat (tiotropium) 2.5 mcg/inh Inhaler INH SCH (07:12)
[2021-02-13] MEDS ORDERED: Albuterol HFA INHALER 8 gm MDI INH PRN (14:50)
[2021-02-13] MEDS: Enoxaparin 40 MG/0.4 ML SYR SUBCUT SCH (20:50)
[2021-02-13] MEDS: Albuterol 2.5mg/3 ml (0.083%) NEB.SOLN INH PRN (20:50)
[2021-02-14] MEDS: Albuterol 2.5mg/3 ml (0.083%) NEB.SOLN INH PRN ×2 (02:24→10:13)
[2021-02-14 08:31] VITALS: BP 130/70
[2021-02-14] MEDS: SPIRIVA Respimat (tiotropium) 2.5 mcg/inh Inhaler INH SCH (08:35)
== END 2021-02-14 14:02 | disposition home or self-care (01) | DRG 190 ==
LOC: ED 09:21 → SUATTDRO 12:23 → ICU 12:23 → MEDTELE 02-08 18:49
PROVIDERS: ADMIT Internal Medicine Critical Care Medicine; ATTEND Student in an Organized Health Care Education/Training Program

== ENCOUNTER 2021-02-16 06:50 | Inpatient (IN) ==
[2021-02-16] MEDS ORDERED: methylPREDNISolone 125 mg 2 ML VIAL IV ONE (06:58)
[2021-02-16] MEDS: Albuterol/Ipratropium NEB.SOL (2.5/0.5 MG) 3 ML NEB.SOLN INH SCH ×2 (07:23→07:24)
[2021-02-16 07:28] LABS: ABS Basophils 0.1 10^3/ul (0-0.2); ABS Eosinophils 0.2 10^3/ul (0-0.6); ABS Lymphocytes 3.4 10^3/ul (1.0-4.8); ABS Monocytes 1.5 10^3/ul (0-0.8); Eosinophil % 1.1 %; Hematocrit 38 % (35-47); Hemoglobin 12.6 g/dL (12.0-16.0); Lymphocyte % 18.7 %; Mean Corpuscular HGB Conc 34 g/dL (31-36); Mean Corpuscular Hemoglobin 32 pg (27-31); Mean Corpuscular Volume 95 fL (80-97); Mean Platelet Volume 7.8 fL (7.4-10.4); Platelet Count 282 10^3/uL (150-450); Red Blood Count 3.97 10^6 /uL (3.70-4.87); Red Cell Distribution Width 15 % (10-15); White Blood Count 18.1 10^3/uL (3.5-10.8)
[2021-02-16 07:31] LABS: PCO2 Arterial 58 mmHg (35-45); PO2 Arterial 74 mmHg (80-100)
[2021-02-16] MEDS ORDERED: Morphine 4 MG/ML VIAL (1 ml) IV ONE (07:33)
[2021-02-16] MEDS ORDERED: Acetaminophen IV 1 GM/100ML 100 ML IV ONE (07:34)
[2021-02-16] MEDS ORDERED: Morphine 2 MG/ML SYRINGE IV ONE (07:45)
[2021-02-16 07:46] LABS: ALT 27 U/L (7-52); AST 16 U/L (13-39); Albumin/Globulin Ratio 1.7 (1-3); Alkaline Phosphatase 66 U/L (35-149); Anion Gap 6 mmol/L (2-11); Blood Urea Nitrogen 27 mg/dL (6-24); C Reactive Protein 10.26 mg/L (<8.01); CO2 Carbon Dioxide 35 mmol/L (22-32); Chloride 100 mmol/L (101-111); Creatine Kinase 88 U/L (10-223); Globulin 2.3 g/dL (2-4); Glucose 86 mg/dL (70-100); Potassium 4.2 mmol/L (3.5-5.0); Sodium 141 mmol/L (135-145); Total Protein 6.3 g/dL (6.4-8.9)
[2021-02-16 07:50] LABS: CKMB ng/mL 7.4 ng/mL (0.6-6.3)
[2021-02-16 07:52] LABS: Troponin I 0.03 ng/mL (<0.03)
[2021-02-16] MEDS ORDERED: Lactated Ringers 1000 ml BAG 1,000 ML IV ONE (08:40)
[2021-02-16] MEDS ORDERED: cefTRIAXone 1 gm/50 mL NS BAG 1 GM/50 ML BAG IV ONE (09:29)
[2021-02-16] MEDS: Enoxaparin 40 MG/0.4 ML SYR SUBCUT SCH ×2 (11:02→12:31)
[2021-02-16] MEDS: DOXYcycline 100 MG in NS 0.9% 250 ml 250 ML IVPB SCH (12:40)
[2021-02-16 13:16] LABS: Rapid COVID-19 Molecular Undetected (Undetected)
[2021-02-16] MEDS ORDERED: Acetaminop/Codeine 300mg/30mg TAB PO PRN (14:00)
[2021-02-16 14:22] LABS: Urine Appearance Clear; Urine Bilirubin Negative (Negative); Urine Blood Negative (Negative); Urine Color Yellow; Urine Glucose Negative (Negative); Urine Ketones Trace (Negative); Urine Nitrite Negative (Negative); Urine Protein Negative (Negative); Urine Specific Gravity 1.027 (1.002-1.030); Urine Urobilinogen Negative (Negative)
[2021-02-16] MEDS ORDERED: Furosemide 40 mg/4 ml IV VIAL IV SLOW PU ONE (14:45)
[2021-02-16] MEDS ORDERED: SPIRIVA Respimat (tiotropium) 2.5 mcg/inh Inhaler INH SCH (15:00)
[2021-02-16] MEDS ORDERED: methylPREDNISolone SOD 40 mg/ml 1 ml VIAL IV SCH ×2 (15:00→16:00)
[2021-02-16] MEDS ORDERED: Acetaminophen IV 1 GM/100ML 100 ML IV PRN (15:56)
[2021-02-16] MEDS: Acetaminop/Codeine 300mg/30mg TAB PO PRN (16:24)
[2021-02-16] MEDS: Budesonide NEB 0.25 MG/2 ML NEB.SOLN INH SCH (21:04)
[2021-02-16] MEDS: methylPREDNISolone SOD 40 mg/ml 1 ml VIAL IV SCH (21:05)
[2021-02-17] MEDS: Albuterol/Ipratropium NEB.SOL (2.5/0.5 MG) 3 ML NEB.SOLN INH PRN ×3 (00:59→21:40)
[2021-02-17] MEDS: DOXYcycline 100 MG in NS 0.9% 250 ml 250 ML IVPB SCH ×2 (01:19→11:43)
[2021-02-17 06:18] LABS: ABS Lymphocytes 0.6 10^3/ul (1.0-4.8); ABS Monocytes 0.6 10^3/ul (0-0.8); ABS Neutrophils 14.6 10^3/ul (1.5-7.7); Hematocrit 35 % (35-47); Hemoglobin 11.8 g/dL (12.0-16.0); Lymphocyte % 3.5 %; Mean Corpuscular HGB Conc 34 g/dL (31-36); Mean Corpuscular Hemoglobin 31 pg (27-31); Mean Corpuscular Volume 93 fL (80-97); Mean Platelet Volume 7.7 fL (7.4-10.4); Platelet Count 264 10^3/uL (150-450); Red Blood Count 3.76 10^6 /uL (3.70-4.87); Red Cell Distribution Width 14 % (10-15); White Blood Count 15.7 10^3/uL (3.5-10.8)
[2021-02-17 06:38] LABS: Calcium 8.9 mg/dL (8.6-10.3); Potassium 4.8 mmol/L (3.5-5.0)
[2021-02-17] MEDS: Budesonide NEB 0.25 MG/2 ML NEB.SOLN INH SCH (07:17)
[2021-02-17 07:44] LABS: Magnesium 2.3 mg/dL (1.9-2.7); Phosphorus 4.1 mg/dL (2.5-5.0)
[2021-02-17] MEDS: methylPREDNISolone SOD 40 mg/ml 1 ml VIAL IV SCH (08:00)
[2021-02-17] MEDS: cefTRIAXone 1 gm/50 mL NS BAG 1 GM/50 ML BAG IVPB SCH (09:12)
[2021-02-17] MEDS: Enoxaparin 40 MG/0.4 ML SYR SUBCUT SCH (11:44)
[2021-02-17] MEDS: Acetaminop/Codeine 300mg/30mg TAB PO PRN (18:46)
[2021-02-18] MEDS: Albuterol/Ipratropium NEB.SOL (2.5/0.5 MG) 3 ML NEB.SOLN INH PRN (08:12)
[2021-02-18] MEDS: Enoxaparin 40 MG/0.4 ML SYR SUBCUT SCH ×2 (09:16→09:23)
[2021-02-18] MEDS: Acetaminop/Codeine 300mg/30mg TAB PO PRN ×3 (09:17→21:46)
[2021-02-18] MEDS: cefTRIAXone 1 gm/50 mL NS BAG 1 GM/50 ML BAG IVPB SCH (09:18)
[2021-02-18] MEDS ORDERED: Bumetanide IV 0.25 MG/ML 4 ml VIAL (1 mg) SLOW PUSH ONE (09:53)
[2021-02-18] MEDS ORDERED: Buffered Lidocaine 1% SYRIN 1 ml INTRADERM ONE (10:46)
[2021-02-18] MEDS: Albuterol/Ipratropium NEB.SOL (2.5/0.5 MG) 3 ML NEB.SOLN INH SCH ×3 (10:47→22:18)
[2021-02-18] MEDS ORDERED: SPIRIVA Respimat (tiotropium) 2.5 mcg/inh Inhaler INH SCH (12:00)
[2021-02-18] MEDS: SPIRIVA Respimat (tiotropium) 2.5 mcg/inh Inhaler INH SCH (13:50)
[2021-02-18 18:02] LABS: ABS Lymphocytes 0.9 10^3/ul (1.0-4.8); ABS Monocytes 0.6 10^3/ul (0-0.8); ABS Neutrophils 16.6 10^3/ul (1.5-7.7); Hematocrit 37 % (35-47); Hemoglobin 12.1 g/dL (12.0-16.0); Mean Corpuscular HGB Conc 33 g/dL (31-36); Mean Corpuscular Hemoglobin 31 pg (27-31); Mean Corpuscular Volume 93 fL (80-97); Mean Platelet Volume 8.1 fL (7.4-10.4); Platelet Count 274 10^3/uL (150-450); Red Blood Count 3.92 10^6 /uL (3.70-4.87); Red Cell Distribution Width 14 % (10-15); White Blood Count 18.1 10^3/uL (3.5-10.8)
[2021-02-18 18:26] LABS: Albumin/Globulin Ratio 1.9 (1-3); Calcium 9.2 mg/dL (8.6-10.3); Globulin 2.1 g/dL (2-4); Potassium 4.1 mmol/L (3.5-5.0); Total Bilirubin 0.6 mg/dL (0.2-1.0); Total Protein 6.1 g/dL (6.4-8.9)
[2021-02-19] MEDS: Saline FLUSH-CENTRAL 10 ML SYRINGE CENT\\PICC SCH ×3 (00:17→22:05)
[2021-02-19] MEDS: Albuterol/Ipratropium NEB.SOL (2.5/0.5 MG) 3 ML NEB.SOLN INH SCH ×4 (02:25→22:13)
[2021-02-19 05:38] LABS: ABS Eosinophils 0.1 10^3/ul (0-0.6); ABS Lymphocytes 2.1 10^3/ul (1.0-4.8); ABS Monocytes 1.5 10^3/ul (0-0.8); ABS Neutrophils 12.7 10^3/ul (1.5-7.7); Eosinophil % 0.5 %; Hematocrit 35 % (35-47); Hemoglobin 11.5 g/dL (12.0-16.0); Lymphocyte % 12.9 %; Mean Corpuscular HGB Conc 33 g/dL (31-36); Mean Corpuscular Hemoglobin 31 pg (27-31); Mean Corpuscular Volume 93 fL (80-97); Mean Platelet Volume 7.7 fL (7.4-10.4); Platelet Count 235 10^3/uL (150-450); Red Blood Count 3.75 10^6 /uL (3.70-4.87); Red Cell Distribution Width 14 % (10-15); White Blood Count 16.4 10^3/uL (3.5-10.8)
[2021-02-19 05:54] LABS: Calcium 8.7 mg/dL (8.6-10.3); Magnesium 2.2 mg/dL (1.9-2.7); Phosphorus 3.7 mg/dL (2.5-5.0); Potassium 3.8 mmol/L (3.5-5.0)
[2021-02-19] MEDS: cefTRIAXone 1 gm/50 mL NS BAG 1 GM/50 ML BAG IVPB SCH (08:48)
[2021-02-19] MEDS ORDERED: Bumetanide IV 0.25 MG/ML 4 ml VIAL (1 mg) SLOW PUSH ONE (08:49)
[2021-02-19] MEDS: Albuterol HFA INHALER 8 gm MDI INH PRN (08:54)
[2021-02-19] MEDS: SPIRIVA Respimat (tiotropium) 2.5 mcg/inh Inhaler INH SCH (10:07)
[2021-02-19] MEDS: Enoxaparin 40 MG/0.4 ML SYR SUBCUT SCH (10:41)
[2021-02-19] MEDS: Acetaminop/Codeine 300mg/30mg TAB PO PRN (23:43)
[2021-02-20] MEDS: Albuterol/Ipratropium NEB.SOL (2.5/0.5 MG) 3 ML NEB.SOLN INH SCH ×4 (03:15→22:12)
[2021-02-20 07:43] LABS: CO2 Carbon Dioxide 37 mmol/L (22-32); Calcium 8.9 mg/dL (8.6-10.3); Chloride 99 mmol/L (101-111); Sodium 142 mmol/L (135-145)
[2021-02-20 07:44] LABS: Anion Gap 6 mmol/L (2-11)
[2021-02-20 07:49] LABS: Blood Urea Nitrogen 35 mg/dL (6-24); Glucose 80 mg/dL (70-100)
[2021-02-20] MEDS: cefTRIAXone 1 gm/50 mL NS BAG 1 GM/50 ML BAG IVPB SCH (09:00)
[2021-02-20] MEDS: SPIRIVA Respimat (tiotropium) 2.5 mcg/inh Inhaler INH SCH (09:02)
[2021-02-20] MEDS: Albuterol HFA INHALER 8 gm MDI INH PRN ×2 (12:15→15:27)
[2021-02-20] MEDS: Saline FLUSH-CENTRAL 10 ML SYRINGE CENT\\PICC SCH ×2 (13:13→23:45)
[2021-02-20] MEDS: Enoxaparin 40 MG/0.4 ML SYR SUBCUT SCH (13:13)
[2021-02-20 18:18] LABS: PCO2 Arterial 48 mmHg (35-45)
[2021-02-20 18:27] LABS: PO2 Arterial 55 mmHg (80-100)
[2021-02-20] MEDS: Acetaminop/Codeine 300mg/30mg TAB PO PRN (21:35)
[2021-02-20] MEDS: Magnesium Hydroxide LIQ 30 ML UDC PO PRN (21:45)
[2021-02-21] MEDS: Albuterol/Ipratropium NEB.SOL (2.5/0.5 MG) 3 ML NEB.SOLN INH SCH ×6 (03:30→20:42)
[2021-02-21 06:17] LABS: ABS Eosinophils 0.1 10^3/ul (0-0.6); ABS Lymphocytes 2.2 10^3/ul (1.0-4.8); ABS Neutrophils 15.4 10^3/ul (1.5-7.7); Eosinophil % 0.5 %; Hematocrit 34 % (35-47); Hemoglobin 11.5 g/dL (12.0-16.0); Lymphocyte % 11.6 %; Mean Corpuscular HGB Conc 34 g/dL (31-36); Mean Corpuscular Hemoglobin 31 pg (27-31); Mean Corpuscular Volume 92 fL (80-97); Mean Platelet Volume 7.8 fL (7.4-10.4); Platelet Count 232 10^3/uL (150-450); Red Cell Distribution Width 14 % (10-15); White Blood Count 18.7 10^3/uL (3.5-10.8)
[2021-02-21 06:38] LABS: Calcium 9.2 mg/dL (8.6-10.3); Magnesium 2.4 mg/dL (1.9-2.7); Phosphorus 4.3 mg/dL (2.5-5.0); Potassium 3.7 mmol/L (3.5-5.0)
[2021-02-21] MEDS: SPIRIVA Respimat (tiotropium) 2.5 mcg/inh Inhaler INH SCH ×2 (08:29→10:06)
[2021-02-21] MEDS ORDERED: Potassium Chlor 20 meq TAB.ER PO ONE (09:31)
[2021-02-21] MEDS: Saline FLUSH-CENTRAL 10 ML SYRINGE CENT\\PICC SCH ×2 (10:57→23:37)
[2021-02-21] MEDS: Enoxaparin 40 MG/0.4 ML SYR SUBCUT SCH (10:57)
[2021-02-21] MEDS: Acetaminop/Codeine 300mg/30mg TAB PO PRN ×2 (10:59→20:01)
[2021-02-22] MEDS: Albuterol/Ipratropium NEB.SOL (2.5/0.5 MG) 3 ML NEB.SOLN INH SCH ×4 (01:04→19:31)
[2021-02-22] MEDS: SPIRIVA Respimat (tiotropium) 2.5 mcg/inh Inhaler INH SCH (07:11)
[2021-02-22] MEDS: Enoxaparin 40 MG/0.4 ML SYR SUBCUT SCH (10:16)
[2021-02-22] MEDS: Saline FLUSH-CENTRAL 10 ML SYRINGE CENT\\PICC SCH ×2 (13:48→23:31)
[2021-02-22] MEDS: Acetaminop/Codeine 300mg/30mg TAB PO PRN (21:19)
[2021-02-23] MEDS: Albuterol/Ipratropium NEB.SOL (2.5/0.5 MG) 3 ML NEB.SOLN INH SCH ×4 (00:59→19:08)
[2021-02-23 09:23] LABS: Calcium 8.7 mg/dL (8.6-10.3); Magnesium 2.3 mg/dL (1.9-2.7); Potassium 3.8 mmol/L (3.5-5.0)
[2021-02-23] MEDS ORDERED: Potassium Chlor 20 meq TAB.ER PO ONE (09:52)
[2021-02-23] MEDS: Enoxaparin 40 MG/0.4 ML SYR SUBCUT SCH (10:41)
[2021-02-23] MEDS: Saline FLUSH-CENTRAL 10 ML SYRINGE CENT\\PICC SCH ×2 (10:46→23:27)
[2021-02-23] MEDS: Albuterol HFA INHALER 8 gm MDI INH PRN ×2 (17:04→21:00)
[2021-02-23] MEDS: Acetaminop/Codeine 300mg/30mg TAB PO PRN (17:23)
[2021-02-23] MEDS: Magnesium Hydroxide LIQ 30 ML UDC PO PRN (20:58)
[2021-02-24] MEDS: Albuterol/Ipratropium NEB.SOL (2.5/0.5 MG) 3 ML NEB.SOLN INH SCH ×4 (01:12→19:45)
[2021-02-24] MEDS: Acetaminop/Codeine 300mg/30mg TAB PO PRN ×3 (05:00→21:11)
[2021-02-24] MEDS: Albuterol HFA INHALER 8 gm MDI INH PRN (05:03)
[2021-02-24 06:44] LABS: Calcium 8.9 mg/dL (8.6-10.3); Magnesium 2.5 mg/dL (1.9-2.7)
[2021-02-24] MEDS: Enoxaparin 40 MG/0.4 ML SYR SUBCUT SCH (09:38)
[2021-02-24] MEDS: Saline FLUSH-CENTRAL 10 ML SYRINGE CENT\\PICC SCH (09:52)
[2021-02-24] MEDS: Senna TAB 8.6 mg TAB PO PRN (21:12)
[2021-02-25] MEDS: Saline FLUSH-CENTRAL 10 ML SYRINGE CENT\\PICC SCH ×4 (00:34→23:51)
[2021-02-25] MEDS: Albuterol/Ipratropium NEB.SOL (2.5/0.5 MG) 3 ML NEB.SOLN INH SCH ×4 (01:22→19:31)
[2021-02-25 06:21] LABS: Hematocrit 33 % (35-47); Hemoglobin 11.2 g/dL (12.0-16.0); Mean Corpuscular HGB Conc 34 g/dL (31-36); Mean Corpuscular Hemoglobin 31 pg (27-31); Mean Corpuscular Volume 92 fL (80-97); Mean Platelet Volume 7.6 fL (7.4-10.4); Platelet Count 229 10^3/uL (150-450); Red Blood Count 3.63 10^6 /uL (3.70-4.87); Red Cell Distribution Width 14 % (10-15); White Blood Count 18.9 10^3/uL (3.5-10.8)
[2021-02-25 06:35] LABS: Calcium 8.7 mg/dL (8.6-10.3); Magnesium 2.4 mg/dL (1.9-2.7); Potassium 4.1 mmol/L (3.5-5.0)
[2021-02-25] MEDS: Albuterol HFA INHALER 8 gm MDI INH PRN (09:06)
[2021-02-25] MEDS: Enoxaparin 40 MG/0.4 ML SYR SUBCUT SCH (09:10)
[2021-02-25] MEDS: Acetaminop/Codeine 300mg/30mg TAB PO PRN (09:22)
[2021-02-26] MEDS: Albuterol/Ipratropium NEB.SOL (2.5/0.5 MG) 3 ML NEB.SOLN INH SCH ×4 (01:18→19:57)
[2021-02-26 06:42] LABS: Hematocrit 34 % (35-47); Hemoglobin 11.5 g/dL (12.0-16.0); Mean Corpuscular HGB Conc 34 g/dL (31-36); Mean Corpuscular Hemoglobin 32 pg (27-31); Mean Corpuscular Volume 92 fL (80-97); Mean Platelet Volume 7.7 fL (7.4-10.4); Platelet Count 213 10^3/uL (150-450); Red Blood Count 3.63 10^6 /uL (3.70-4.87); Red Cell Distribution Width 14 % (10-15); White Blood Count 17.1 10^3/uL (3.5-10.8)
[2021-02-26 07:09] LABS: Calcium 8.6 mg/dL (8.6-10.3); Magnesium 2.3 mg/dL (1.9-2.7); Potassium 3.6 mmol/L (3.5-5.0)
[2021-02-26] MEDS: Enoxaparin 40 MG/0.4 ML SYR SUBCUT SCH (10:53)
[2021-02-26] MEDS: Acetaminop/Codeine 300mg/30mg TAB PO PRN (10:54)
[2021-02-26] MEDS: Saline FLUSH-CENTRAL 10 ML SYRINGE CENT\\PICC SCH ×2 (10:54→23:56)
[2021-02-27] MEDS: Albuterol/Ipratropium NEB.SOL (2.5/0.5 MG) 3 ML NEB.SOLN INH SCH ×4 (00:39→19:31)
[2021-02-27 05:23] LABS: Calcium 8.7 mg/dL (8.6-10.3); Magnesium 2.4 mg/dL (1.9-2.7); Potassium 3.8 mmol/L (3.5-5.0)
[2021-02-27] MEDS: Albuterol HFA INHALER 8 gm MDI INH PRN (09:19)
[2021-02-27] MEDS ORDERED: SPIRIVA Respimat (tiotropium) 2.5 mcg/inh Inhaler INH SCH (10:00)
[2021-02-27] MEDS: Acetaminop/Codeine 300mg/30mg TAB PO PRN (10:39)
[2021-02-27] MEDS: Enoxaparin 40 MG/0.4 ML SYR SUBCUT SCH (11:11)
[2021-02-27] MEDS: Saline FLUSH-CENTRAL 10 ML SYRINGE CENT\\PICC SCH (16:27)
[2021-02-27 19:02] LABS: Vitamin D Total 25(OH) 14.9 ng/mL (20-50)
[2021-02-27] MEDS ORDERED: Albuterol/Ipratropium NEB.SOL (2.5/0.5 MG) 3 ML NEB.SOLN ONE (19:14)
[2021-02-28] MEDS ORDERED: Albuterol/Ipratropium NEB.SOL (2.5/0.5 MG) 3 ML NEB.SOLN ONE (00:53)
[2021-02-28] MEDS: Albuterol/Ipratropium NEB.SOL (2.5/0.5 MG) 3 ML NEB.SOLN INH SCH ×4 (00:59→19:34)
[2021-02-28] MEDS: Saline FLUSH-CENTRAL 10 ML SYRINGE CENT\\PICC SCH ×4 (03:35→23:47)
[2021-02-28 05:07] LABS: Calcium 8.6 mg/dL (8.6-10.3); Magnesium 2.4 mg/dL (1.9-2.7); Potassium 3.7 mmol/L (3.5-5.0)
[2021-02-28] MEDS: Albuterol HFA INHALER 8 gm MDI INH PRN (09:16)
[2021-02-28] MEDS: Acetaminop/Codeine 300mg/30mg TAB PO PRN (09:24)
[2021-02-28] MEDS: Enoxaparin 40 MG/0.4 ML SYR SUBCUT SCH (10:16)
[2021-03-01] MEDS: Albuterol/Ipratropium NEB.SOL (2.5/0.5 MG) 3 ML NEB.SOLN INH SCH ×4 (01:23→19:40)
[2021-03-01 05:44] LABS: Calcium 8.6 mg/dL (8.6-10.3); Magnesium 2.5 mg/dL (1.9-2.7); Potassium 3.7 mmol/L (3.5-5.0)
[2021-03-01] MEDS: Albuterol HFA INHALER 8 gm MDI INH PRN ×2 (09:43→16:05)
[2021-03-01] MEDS: Enoxaparin 40 MG/0.4 ML SYR SUBCUT SCH (13:56)
[2021-03-01] MEDS: Saline FLUSH-CENTRAL 10 ML SYRINGE CENT\\PICC SCH (14:47)
[2021-03-01] MEDS: Senna TAB 8.6 mg TAB PO PRN (20:47)
[2021-03-02] MEDS: Saline FLUSH-CENTRAL 10 ML SYRINGE CENT\\PICC SCH ×3 (00:09→22:14)
[2021-03-02] MEDS: Albuterol/Ipratropium NEB.SOL (2.5/0.5 MG) 3 ML NEB.SOLN INH SCH ×4 (01:42→19:23)
[2021-03-02 05:21] LABS: Calcium 8.8 mg/dL (8.6-10.3); Magnesium 2.4 mg/dL (1.9-2.7); Potassium 3.7 mmol/L (3.5-5.0)
[2021-03-02] MEDS: Enoxaparin 40 MG/0.4 ML SYR SUBCUT SCH ×2 (11:44→12:20)
[2021-03-02] MEDS: Senna TAB 8.6 mg TAB PO PRN (20:39)
[2021-03-03] MEDS: Albuterol/Ipratropium NEB.SOL (2.5/0.5 MG) 3 ML NEB.SOLN INH SCH ×2 (01:17→07:08)
[2021-03-03 04:36] VITALS: BP 116/76
[2021-03-03] MEDS: Enoxaparin 40 MG/0.4 ML SYR SUBCUT SCH (10:44)
[2021-03-03] MEDS: Albuterol HFA INHALER 8 gm MDI INH PRN (11:04)
== END 2021-03-03 13:00 | disposition home or self-care (01) | DRG 190 ==
LOC: ED 06:50 → SUATTDRO 10:15 → EDHOLD 10:15 → ICU 22:36 → MED 02-20 19:39
PROVIDERS: ADMIT Internal Medicine; ATTEND Internal Medicine

== ENCOUNTER 2021-03-31 23:07 | Inpatient (IN) ==
[2021-03-31] MEDS ORDERED: Morphine 4 MG/ML VIAL (1 ml) IV ONE ×2 (23:28→23:54)
[2021-03-31] MEDS ORDERED: Dexamethasone IV 4 MG/ML VIAL 1 ml VIAL IV SLOW PU ONE (23:28)
[2021-03-31 23:46] LABS: ABS Monocytes 1.1 10^3/ul (0-0.8); ABS Neutrophils 17.2 10^3/ul (1.5-7.7); Eosinophil % 0.2 %; Hematocrit 37 % (35-47); Hemoglobin 12.2 g/dL (12.0-16.0); Lymphocyte % 9.9 %; Mean Corpuscular HGB Conc 33 g/dL (31-36); Mean Corpuscular Hemoglobin 30 pg (27-31); Mean Corpuscular Volume 92 fL (80-97); Mean Platelet Volume 7.8 fL (7.4-10.4); Nucleated Red Blood Cells % 0.1; Platelet Count 331 10^3/uL (150-450); Red Blood Count 4.07 10^6 /uL (3.70-4.87); Red Cell Distribution Width 14 % (10-15); White Blood Count 20.3 10^3/uL (3.5-10.8)
[2021-03-31 23:58] LABS: PCO2 Arterial 64 mmHg (35-45); PO2 Arterial 81 mmHg (80-100)
[2021-04-01] MEDS: Albuterol/Ipratropium NEB.SOL (2.5/0.5 MG) 3 ML NEB.SOLN INH SCH ×8 (00:32→19:37)
[2021-04-01 00:44] LABS: Albumin 4.3 g/dL (3.2-5.2); Anion Gap 6 mmol/L (2-11); CO2 Carbon Dioxide 40 mmol/L (22-32); Calcium 9.5 mg/dL (8.6-10.3); Chloride 97 mmol/L (101-111); Potassium 3.9 mmol/L (3.5-5.0); Sodium 143 mmol/L (135-145)
[2021-04-01 00:50] LABS: ALT 26 U/L (7-52); AST 21 U/L (13-39); Albumin/Globulin Ratio 1.8 (1-3); Alkaline Phosphatase 97 U/L (35-149); Blood Urea Nitrogen 33 mg/dL (6-24); C Reactive Protein 24.07 mg/L (<8.01); Globulin 2.4 g/dL (2-4); Glucose 95 mg/dL (70-100); Total Protein 6.7 g/dL (6.4-8.9); eGFR CKD-EPI 54.1 (>60)
[2021-04-01 00:57] LABS: Troponin I 0.02 ng/mL (<0.03)
[2021-04-01] MEDS ORDERED: Heparin DRIP 25,000 UNITS BAG 25,000 UNITS/500 ML BAG IV SCH (01:00)
[2021-04-01] MEDS ORDERED: Heparin 5000 UNITS/ML 1 mL VIAL IV SCH (01:00)
[2021-04-01] MEDS ORDERED: Cefepime 1 GM in Dextrose 1 GM/50 ML BAG IV ONE (01:09)
[2021-04-01] MEDS: methylPREDNISolone SOD 40 mg/ml 1 ml VIAL IV SCH ×3 (02:32→21:05)
[2021-04-01] MEDS ORDERED: Bumetanide IV 0.25 MG/ML 4 ml VIAL (1 mg) SLOW PUSH ONE (02:35)
[2021-04-01] MEDS: Lidocaine PATCH 5% PATCH TRANSDERM SCH ×2 (02:44→09:33)
[2021-04-01] MEDS ORDERED: Enoxaparin 100 MG/ML SYR SUBCUT SCH (03:00)
[2021-04-01 03:02] LABS: INR 0.97 (0.86-1.15)
[2021-04-01 05:41] LABS: Hematocrit 35 % (35-47); Hemoglobin 11.4 g/dL (12.0-16.0); Mean Corpuscular HGB Conc 32 g/dL (31-36); Mean Corpuscular Hemoglobin 30 pg (27-31); Mean Corpuscular Volume 92 fL (80-97); Mean Platelet Volume 7.6 fL (7.4-10.4); Platelet Count 311 10^3/uL (150-450); Red Blood Count 3.81 10^6 /uL (3.70-4.87); Red Cell Distribution Width 15 % (10-15); White Blood Count 25.5 10^3/uL (3.5-10.8)
[2021-04-01 06:03] LABS: ABS Lymphocytes 0.4 10^3/ul (1.0-4.8); ABS Monocytes 0.4 10^3/ul (0-0.8); ABS Neutrophils 24.6 10^3/ul (1.5-7.7); Lymphocyte % 1.6 %
[2021-04-01 06:22] LABS: Calcium 9.2 mg/dL (8.6-10.3); Potassium 3.7 mmol/L (3.5-5.0); eGFR CKD-EPI 44.4 (>60)
[2021-04-01] MEDS: Mometasone/Formoter 200/5 MDI INH SCH ×2 (08:24→19:37)
[2021-04-01 09:39] LABS: TSH Ultra Thyroid Stim Horm 1.09 mcIU/mL (0.34-5.60)
[2021-04-01] MEDS: Enoxaparin 40 MG/0.4 ML SYR SUBCUT SCH (13:55)
[2021-04-01] MEDS ORDERED: SPIRIVA Respimat (tiotropium) 2.5 mcg/inh Inhaler INH SCH (16:00)
[2021-04-01] MEDS: Lidocaine Patch REMOVE NOTE PATCH OFF SCH (21:17)
[2021-04-02] MEDS: Albuterol/Ipratropium NEB.SOL (2.5/0.5 MG) 3 ML NEB.SOLN INH SCH ×4 (01:00→19:09)
[2021-04-02 06:38] LABS: ABS Basophils 0.1 10^3/ul (0-0.2); ABS Eosinophils 0.1 10^3/ul (0-0.6); ABS Lymphocytes 0.7 10^3/ul (1.0-4.8); ABS Neutrophils 19.6 10^3/ul (1.5-7.7); Eosinophil % 0.3 %; Hematocrit 33 % (35-47); Hemoglobin 11.1 g/dL (12.0-16.0); Lymphocyte % 3.3 %; Mean Corpuscular HGB Conc 33 g/dL (31-36); Mean Corpuscular Hemoglobin 31 pg (27-31); Mean Corpuscular Volume 92 fL (80-97); Mean Platelet Volume 8.3 fL (7.4-10.4); Platelet Count 285 10^3/uL (150-450); Red Blood Count 3.63 10^6 /uL (3.70-4.87); Red Cell Distribution Width 15 % (10-15); White Blood Count 21.5 10^3/uL (3.5-10.8)
[2021-04-02] MEDS: methylPREDNISolone SOD 40 mg/ml 1 ml VIAL IV SCH ×2 (06:51→09:04)
[2021-04-02] MEDS: Mometasone/Formoter 200/5 MDI INH SCH ×2 (07:25→19:14)
[2021-04-02] MEDS: Lidocaine PATCH 5% PATCH TRANSDERM SCH ×2 (09:03)
[2021-04-02 09:45] LABS: Urine Appearance Cloudy; Urine Bilirubin Negative (Negative); Urine Blood Negative (Negative); Urine Color Yellow; Urine Glucose Negative (Negative); Urine Ketones Trace (Negative); Urine Nitrite Negative (Negative); Urine Protein Negative (Negative); Urine Specific Gravity 1.018 (1.002-1.030); Urine Urobilinogen Negative (Negative)
[2021-04-02 11:21] LABS: Magnesium 2.8 mg/dL (1.9-2.7); Potassium 4.2 mmol/L (3.5-5.0); eGFR CKD-EPI 40.6 (>60)
[2021-04-02] MEDS: Enoxaparin 40 MG/0.4 ML SYR SUBCUT SCH (15:36)
[2021-04-02] MEDS: Lidocaine Patch REMOVE NOTE PATCH OFF SCH (21:08)
[2021-04-02] MEDS: Albuterol 2.5mg/3 ml (0.083%) NEB.SOLN INH PRN (22:52)
[2021-04-03] MEDS: Albuterol 2.5mg/3 ml (0.083%) NEB.SOLN INH PRN ×3 (03:52→12:51)
[2021-04-03] MEDS ORDERED: Bumetanide IV 0.25 MG/ML 4 ml VIAL (1 mg) SLOW PUSH PRN (04:27)
[2021-04-03] MEDS ORDERED: Lorazepam PYXIS KEY PRN (06:27)
[2021-04-03] MEDS ORDERED: LORazepam 2 mg VIAL 1 ml IV PUSH ONE (06:27)
[2021-04-03] MEDS: Mometasone/Formoter 200/5 MDI INH SCH ×2 (07:00→22:15)
[2021-04-03] MEDS: Albuterol/Ipratropium NEB.SOL (2.5/0.5 MG) 3 ML NEB.SOLN INH SCH ×3 (07:00→20:11)
[2021-04-03 07:43] LABS: Hematocrit 35 % (35-47); Hemoglobin 11.6 g/dL (12.0-16.0); Mean Corpuscular HGB Conc 33 g/dL (31-36); Mean Corpuscular Hemoglobin 30 pg (27-31); Mean Corpuscular Volume 91 fL (80-97); Mean Platelet Volume 8.1 fL (7.4-10.4); Platelet Count 252 10^3/uL (150-450); Red Blood Count 3.82 10^6 /uL (3.70-4.87); Red Cell Distribution Width 14 % (10-15); White Blood Count 28.8 10^3/uL (3.5-10.8)
[2021-04-03 08:02] LABS: Calcium 9.9 mg/dL (8.6-10.3); Magnesium 2.9 mg/dL (1.9-2.7); Potassium 4.4 mmol/L (3.5-5.0); eGFR CKD-EPI 36.8 (>60)
[2021-04-03] MEDS ORDERED: Lactated Ringers 1000 ml BAG 1,000 ML IV SCH (09:00)
[2021-04-03 09:15] LABS: ABS Basophils 0.1 10^3/ul (0-0.2); ABS Lymphocytes 0.6 10^3/ul (1.0-4.8); ABS Monocytes 2.3 10^3/ul (0-0.8); ABS Neutrophils 25.9 10^3/ul (1.5-7.7); Eosinophil % 0.1 %
[2021-04-03 09:31] LABS: PCO2 Arterial 70 mmHg (35-45); PO2 Arterial 84 mmHg (80-100)
[2021-04-03] MEDS: methylPREDNISolone SOD 40 mg/ml 1 ml VIAL IV SCH ×2 (10:00→18:31)
[2021-04-03] MEDS: Lidocaine PATCH 5% PATCH TRANSDERM SCH (10:00)
[2021-04-03 13:43] LABS: PCO2 Arterial 63 mmHg (35-45); PO2 Arterial 64 mmHg (80-100)
[2021-04-03] MEDS: Morphine 2 MG/ML SYRINGE IV PRN ×2 (14:12→19:56)
[2021-04-03] MEDS: Enoxaparin 40 MG/0.4 ML SYR SUBCUT SCH (15:32)
[2021-04-03 17:17] LABS: PCO2 Arterial 58 mmHg (35-45); PO2 Arterial 99 mmHg (80-100)
[2021-04-03] MEDS: Pantoprazole VIAL 40 MG VIAL IV SCH (18:31)
[2021-04-03 21:52] LABS: Troponin I 0.04 ng/mL (<0.03)
[2021-04-03] MEDS: Lidocaine Patch REMOVE NOTE PATCH OFF SCH (22:00)
[2021-04-04] MEDS: Morphine 2 MG/ML SYRINGE IV PRN ×3 (00:13→10:19)
[2021-04-04] MEDS: methylPREDNISolone SOD 40 mg/ml 1 ml VIAL IV SCH ×2 (01:54→08:08)
[2021-04-04 04:59] LABS: ABS Lymphocytes 0.3 10^3/ul (1.0-4.8); ABS Monocytes 0.5 10^3/ul (0-0.8); ABS Neutrophils 13.8 10^3/ul (1.5-7.7); Hematocrit 31 % (35-47); Hemoglobin 10.5 g/dL (12.0-16.0); Lymphocyte % 1.9 %; Mean Corpuscular HGB Conc 34 g/dL (31-36); Mean Corpuscular Hemoglobin 31 pg (27-31); Mean Corpuscular Volume 91 fL (80-97); Platelet Count 214 10^3/uL (150-450); Red Blood Count 3.42 10^6 /uL (3.70-4.87); Red Cell Distribution Width 14 % (10-15); White Blood Count 14.6 10^3/uL (3.5-10.8)
[2021-04-04 05:16] LABS: ALT 28 U/L (7-52); AST 23 U/L (13-39); Albumin 3.8 g/dL (3.2-5.2); Albumin/Globulin Ratio 1.8 (1-3); Alkaline Phosphatase 70 U/L (35-149); Anion Gap 5 mmol/L (2-11); Blood Urea Nitrogen 67 mg/dL (6-24); CO2 Carbon Dioxide 40 mmol/L (22-32); Calcium 9.3 mg/dL (8.6-10.3); Chloride 95 mmol/L (101-111); Globulin 2.1 g/dL (2-4); Glucose 123 mg/dL (70-100); Magnesium 2.7 mg/dL (1.9-2.7); Sodium 140 mmol/L (135-145); Total Protein 5.9 g/dL (6.4-8.9); eGFR CKD-EPI 60.6 (>60)
[2021-04-04 05:38] LABS: Troponin I 0.03 ng/mL (<0.03)
[2021-04-04] MEDS: Albuterol/Ipratropium NEB.SOL (2.5/0.5 MG) 3 ML NEB.SOLN INH SCH ×3 (07:01→17:50)
[2021-04-04] MEDS: Mometasone/Formoter 200/5 MDI INH SCH ×2 (07:02→21:23)
[2021-04-04] MEDS: Lidocaine PATCH 5% PATCH TRANSDERM SCH (07:52)
[2021-04-04] MEDS ORDERED: Morphine 2 MG/ML SYRINGE IV ONE (11:12)
[2021-04-04] MEDS: Pantoprazole VIAL 40 MG VIAL IV SCH (14:05)
[2021-04-04] MEDS: Enoxaparin 40 MG/0.4 ML SYR SUBCUT SCH (14:05)
[2021-04-04] MEDS ORDERED: methylPREDNISolone SOD 40 mg/ml 1 ml VIAL IV SCH (16:00)
[2021-04-04] MEDS ORDERED: LORazepam 2 mg VIAL 1 ml IV PUSH PRN (18:56)
[2021-04-04] MEDS: Lidocaine Patch REMOVE NOTE PATCH OFF SCH (20:58)
[2021-04-05] MEDS ORDERED: methylPREDNISolone SOD 40 mg/ml 1 ml VIAL IV SCH (02:00)
[2021-04-05 06:05] LABS: ABS Lymphocytes 0.3 10^3/ul (1.0-4.8); ABS Neutrophils 13.8 10^3/ul (1.5-7.7); Hematocrit 33 % (35-47); Hemoglobin 10.9 g/dL (12.0-16.0); Lymphocyte % 1.7 %; Mean Corpuscular HGB Conc 33 g/dL (31-36); Mean Corpuscular Hemoglobin 31 pg (27-31); Mean Corpuscular Volume 92 fL (80-97); Mean Platelet Volume 8.3 fL (7.4-10.4); Platelet Count 231 10^3/uL (150-450); Red Blood Count 3.57 10^6 /uL (3.70-4.87); Red Cell Distribution Width 14 % (10-15)
[2021-04-05 06:16] LABS: Blood Urea Nitrogen 55 mg/dL (6-24); Calcium 9.4 mg/dL (8.6-10.3); Chloride 97 mmol/L (101-111); Glucose 125 mg/dL (70-100); Magnesium 2.9 mg/dL (1.9-2.7); Sodium 142 mmol/L (135-145)
[2021-04-05 06:19] LABS: CO2 Carbon Dioxide 41 mmol/L (22-32)
[2021-04-05 06:20] LABS: Anion Gap 4 mmol/L (2-11)
[2021-04-05] MEDS: Albuterol/Ipratropium NEB.SOL (2.5/0.5 MG) 3 ML NEB.SOLN INH SCH ×3 (07:12→18:51)
[2021-04-05] MEDS: Mometasone/Formoter 200/5 MDI INH SCH ×2 (07:12→21:36)
[2021-04-05] MEDS: Lidocaine PATCH 5% PATCH TRANSDERM SCH (11:29)
[2021-04-05] MEDS: Pantoprazole VIAL 40 MG VIAL IV SCH (16:49)
[2021-04-05] MEDS: Enoxaparin 40 MG/0.4 ML SYR SUBCUT SCH (16:49)
[2021-04-05] MEDS: Lidocaine Patch REMOVE NOTE PATCH OFF SCH (21:14)
[2021-04-06] MEDS ORDERED: Succinylcholine 200 mg VIAL 20 mg/ml 10 ml VIAL (200 mg) ONE (04:34)
[2021-04-06] MEDS ORDERED: Rocuronium 50 mg VIAL 10 mg/ml 5 ml VIAL (50 mg) ONE (04:34)
[2021-04-06 06:39] LABS: Hematocrit 36 % (35-47); Hemoglobin 11.8 g/dL (12.0-16.0); Mean Corpuscular HGB Conc 33 g/dL (31-36); Mean Corpuscular Hemoglobin 30 pg (27-31); Mean Corpuscular Volume 92 fL (80-97); Mean Platelet Volume 8.1 fL (7.4-10.4); Platelet Count 222 10^3/uL (150-450); Red Blood Count 3.89 10^6 /uL (3.70-4.87); Red Cell Distribution Width 14 % (10-15); White Blood Count 17.4 10^3/uL (3.5-10.8)
[2021-04-06 06:59] LABS: Calcium 9.6 mg/dL (8.6-10.3); Magnesium 2.7 mg/dL (1.9-2.7); Phosphorus 3.6 mg/dL (2.5-5.0); Potassium 4.1 mmol/L (3.5-5.0); eGFR CKD-EPI 63.6 (>60)
[2021-04-06] MEDS: Albuterol/Ipratropium NEB.SOL (2.5/0.5 MG) 3 ML NEB.SOLN INH SCH ×3 (07:11→19:28)
[2021-04-06] MEDS: Mometasone/Formoter 200/5 MDI INH SCH ×2 (07:11→19:29)
[2021-04-06] MEDS: Lidocaine PATCH 5% PATCH TRANSDERM SCH (08:31)
[2021-04-06 08:48] LABS: ABS Lymphocytes 0.7 10^3/ul (1.0-4.8); ABS Monocytes 1.6 10^3/ul (0-0.8)
[2021-04-06] MEDS: Enoxaparin 40 MG/0.4 ML SYR SUBCUT SCH (16:08)
[2021-04-06] MEDS: Pantoprazole VIAL 40 MG VIAL IV SCH (16:08)
[2021-04-06] MEDS ORDERED: Albuterol/Ipratropium NEB.SOL (2.5/0.5 MG) 3 ML NEB.SOLN INH PRN (19:33)
[2021-04-06] MEDS: Lidocaine Patch REMOVE NOTE PATCH OFF SCH (20:02)
[2021-04-07] MEDS: Mometasone/Formoter 200/5 MDI INH SCH ×2 (07:10→19:11)
[2021-04-07] MEDS: Lidocaine PATCH 5% PATCH TRANSDERM SCH (07:45)
[2021-04-07] MEDS: Enoxaparin 40 MG/0.4 ML SYR SUBCUT SCH (15:25)
[2021-04-07] MEDS: Pantoprazole VIAL 40 MG VIAL IV SCH (15:26)
[2021-04-07] MEDS: Albuterol/Ipratropium NEB.SOL (2.5/0.5 MG) 3 ML NEB.SOLN INH SCH (19:11)
[2021-04-07] MEDS: Lidocaine Patch REMOVE NOTE PATCH OFF SCH (21:25)
[2021-04-08] MEDS: Albuterol/Ipratropium NEB.SOL (2.5/0.5 MG) 3 ML NEB.SOLN INH SCH ×4 (00:07→19:11)
[2021-04-08 05:04] LABS: ABS Eosinophils 0.1 10^3/ul (0-0.6); ABS Lymphocytes 1.1 10^3/ul (1.0-4.8); ABS Monocytes 1.5 10^3/ul (0-0.8); ABS Neutrophils 16.3 10^3/ul (1.5-7.7); Eosinophil % 0.5 %; Hematocrit 34 % (35-47); Hemoglobin 11.3 g/dL (12.0-16.0); Lymphocyte % 5.8 %; Mean Corpuscular HGB Conc 33 g/dL (31-36); Mean Corpuscular Hemoglobin 30 pg (27-31); Mean Corpuscular Volume 90 fL (80-97); Mean Platelet Volume 8.1 fL (7.4-10.4); Platelet Count 210 10^3/uL (150-450); Red Blood Count 3.77 10^6 /uL (3.70-4.87); Red Cell Distribution Width 14 % (10-15)
[2021-04-08 05:20] LABS: Calcium 9.3 mg/dL (8.6-10.3); Magnesium 2.5 mg/dL (1.9-2.7); Phosphorus 3.3 mg/dL (2.5-5.0); Potassium 3.9 mmol/L (3.5-5.0)
[2021-04-08] MEDS: Lidocaine PATCH 5% PATCH TRANSDERM SCH (08:21)
[2021-04-08] MEDS: Mometasone/Formoter 200/5 MDI INH SCH ×2 (08:44→20:29)
[2021-04-08] MEDS ORDERED: Magnesium Hydroxide LIQ 30 ML UDC PO PRN (09:51)
[2021-04-08] MEDS: Senna TAB 8.6 mg TAB PO SCH (11:07)
[2021-04-08] MEDS: Enoxaparin 40 MG/0.4 ML SYR SUBCUT SCH (14:18)
[2021-04-08] MEDS ORDERED: HYDROmorphone 1 MG/1 ML SYRINGE IV SLOW PU PRN (16:25)
[2021-04-08] MEDS: Pantoprazole VIAL 40 MG VIAL IV SCH (16:47)
[2021-04-08] MEDS: HYDROmorphone 1 MG/1 ML SYRINGE IV SLOW PU PRN (20:17)
[2021-04-08] MEDS: Lidocaine Patch REMOVE NOTE PATCH OFF SCH (20:22)
[2021-04-09] MEDS: Albuterol/Ipratropium NEB.SOL (2.5/0.5 MG) 3 ML NEB.SOLN INH SCH ×4 (00:07→22:11)
[2021-04-09] MEDS: HYDROmorphone 1 MG/1 ML SYRINGE IV SLOW PU PRN ×5 (04:29→20:36)
[2021-04-09 04:40] LABS: ABS Basophils 0.1 10^3/ul (0-0.2); ABS Lymphocytes 0.4 10^3/ul (1.0-4.8); ABS Monocytes 0.8 10^3/ul (0-0.8); ABS Neutrophils 19.1 10^3/ul (1.5-7.7); Hematocrit 34 % (35-47); Hemoglobin 11.2 g/dL (12.0-16.0); Mean Corpuscular HGB Conc 33 g/dL (31-36); Mean Corpuscular Hemoglobin 30 pg (27-31); Mean Corpuscular Volume 91 fL (80-97); Platelet Count 210 10^3/uL (150-450); Red Blood Count 3.75 10^6 /uL (3.70-4.87); Red Cell Distribution Width 14 % (10-15); White Blood Count 20.4 10^3/uL (3.5-10.8)
[2021-04-09 04:56] LABS: Potassium 4.4 mmol/L (3.5-5.0); eGFR CKD-EPI 88.1 (>60)
[2021-04-09] MEDS: Mometasone/Formoter 200/5 MDI INH SCH ×2 (07:43→19:05)
[2021-04-09] MEDS: Lidocaine PATCH 5% PATCH TRANSDERM SCH (08:03)
[2021-04-09] MEDS: Senna TAB 8.6 mg TAB PO SCH (08:04)
[2021-04-09] MEDS: Enoxaparin 40 MG/0.4 ML SYR SUBCUT SCH (16:23)
[2021-04-09] MEDS: Pantoprazole VIAL 40 MG VIAL IV SCH (16:23)
[2021-04-09] MEDS ORDERED: Albuterol/Ipratropium NEB.SOL (2.5/0.5 MG) 3 ML NEB.SOLN ONE ×2 (18:58→22:58)
[2021-04-09] MEDS: Lidocaine Patch REMOVE NOTE PATCH OFF SCH (19:52)
[2021-04-10] MEDS: Albuterol/Ipratropium NEB.SOL (2.5/0.5 MG) 3 ML NEB.SOLN INH SCH ×4 (00:55→19:52)
[2021-04-10] MEDS: HYDROmorphone 1 MG/1 ML SYRINGE IV SLOW PU PRN ×6 (02:21→22:31)
[2021-04-10] MEDS: Mometasone/Formoter 200/5 MDI INH SCH ×2 (07:05→19:52)
[2021-04-10] MEDS: Lidocaine PATCH 5% PATCH TRANSDERM SCH (08:40)
[2021-04-10] MEDS: Senna TAB 8.6 mg TAB PO SCH (08:44)
[2021-04-10] MEDS: Enoxaparin 40 MG/0.4 ML SYR SUBCUT SCH (14:29)
[2021-04-10] MEDS: Pantoprazole VIAL 40 MG VIAL IV SCH (15:35)
[2021-04-10] MEDS: Lidocaine Patch REMOVE NOTE PATCH OFF SCH (22:30)
[2021-04-11] MEDS: Albuterol/Ipratropium NEB.SOL (2.5/0.5 MG) 3 ML NEB.SOLN INH SCH (02:02)
[2021-04-11] MEDS: HYDROmorphone 1 MG/1 ML SYRINGE IV SLOW PU PRN ×5 (03:19→17:02)
[2021-04-11] MEDS ORDERED: Albuterol/Ipratropium NEB.SOL (2.5/0.5 MG) 3 ML NEB.SOLN INH PRN (06:54)
[2021-04-11] MEDS: Senna TAB 8.6 mg TAB PO SCH (08:16)
[2021-04-11] MEDS: Lidocaine PATCH 5% PATCH TRANSDERM SCH (08:17)
[2021-04-11] MEDS ORDERED: LORazepam 2 mg VIAL 1 ml IV PUSH PRN (09:09)
[2021-04-11] MEDS ORDERED: Lorazepam PYXIS KEY PRN (09:16)
[2021-04-11] MEDS: Mometasone/Formoter 200/5 MDI INH SCH (10:18)
[2021-04-11] MEDS: Pantoprazole VIAL 40 MG VIAL IV SCH (14:41)
[2021-04-11] MEDS: Enoxaparin 40 MG/0.4 ML SYR SUBCUT SCH (14:41)
[2021-04-11] MEDS: Lidocaine Patch REMOVE NOTE PATCH OFF SCH (21:58)
[2021-04-12] MEDS: HYDROmorphone 1 MG/1 ML SYRINGE IV SLOW PU PRN ×4 (01:37→21:27)
[2021-04-12] MEDS: Lidocaine PATCH 5% PATCH TRANSDERM SCH (08:19)
[2021-04-12] MEDS: Senna TAB 8.6 mg TAB PO SCH (08:22)
[2021-04-12] MEDS ORDERED: LORazepam 2 mg VIAL 1 ml IV PUSH PRN (09:21)
[2021-04-12] MEDS: Pantoprazole VIAL 40 MG VIAL IV SCH (14:50)
[2021-04-12] MEDS: Enoxaparin 40 MG/0.4 ML SYR SUBCUT SCH (14:50)
[2021-04-12] MEDS: Lidocaine Patch REMOVE NOTE PATCH OFF SCH (21:28)
[2021-04-13] MEDS ORDERED: Rocuronium 50 mg VIAL 10 mg/ml 5 ml VIAL (50 mg) ONE (04:11)
[2021-04-13] MEDS ORDERED: Succinylcholine 200 mg VIAL 20 mg/ml 10 ml VIAL (200 mg) ONE (04:11)
[2021-04-13] MEDS: HYDROmorphone 1 MG/1 ML SYRINGE IV SLOW PU PRN ×4 (05:35→22:49)
[2021-04-13] MEDS: Senna TAB 8.6 mg TAB PO SCH (09:06)
[2021-04-13] MEDS: methylPREDNISolone SOD 40 mg/ml 1 ml VIAL IV SCH (09:08)
[2021-04-13] MEDS: Lidocaine PATCH 5% PATCH TRANSDERM SCH (09:10)
[2021-04-13] MEDS: Pantoprazole VIAL 40 MG VIAL IV SCH (15:08)
[2021-04-13] MEDS: Enoxaparin 40 MG/0.4 ML SYR SUBCUT SCH (15:09)
[2021-04-13] MEDS: Lidocaine Patch REMOVE NOTE PATCH OFF SCH (21:13)
[2021-04-14] MEDS: HYDROmorphone 1 MG/1 ML SYRINGE IV SLOW PU PRN ×3 (04:07→21:00)
[2021-04-14] MEDS: Lidocaine PATCH 5% PATCH TRANSDERM SCH (08:09)
[2021-04-14] MEDS: methylPREDNISolone SOD 40 mg/ml 1 ml VIAL IV SCH (08:11)
[2021-04-14] MEDS: Senna TAB 8.6 mg TAB PO SCH (08:11)
[2021-04-14 08:16] VITALS: BP 151/70
[2021-04-14] MEDS ORDERED: Morphine ORAL CONCENTRATE 5 MG/0.25 ML ORAL.SYRIN SL PRN (12:08)
[2021-04-14] MEDS ORDERED: Albuterol/Ipratropium NEB.SOL (2.5/0.5 MG) 3 ML NEB.SOLN INH SCH (15:00)
[2021-04-14] MEDS: Pantoprazole VIAL 40 MG VIAL IV SCH (16:21)
[2021-04-14] MEDS ORDERED: Albuterol/Ipratropium NEB.SOL (2.5/0.5 MG) 3 ML NEB.SOLN INH PRN (18:34)
[2021-04-14] MEDS: Lidocaine Patch REMOVE NOTE PATCH OFF SCH (21:30)
[2021-04-15] MEDS: HYDROmorphone 1 MG/1 ML SYRINGE IV SLOW PU PRN ×3 (00:57→18:31)
[2021-04-15] MEDS: Lidocaine PATCH 5% PATCH TRANSDERM SCH (08:40)
[2021-04-15] MEDS: Senna TAB 8.6 mg TAB PO SCH (08:40)
[2021-04-15] MEDS: Morphine ORAL CONCENTRATE 5 MG/0.25 ML ORAL.SYRIN SL PRN (11:01)
[2021-04-15] MEDS: Morphine 2 MG/ML SYRINGE IV PRN ×3 (13:25→17:50)
[2021-04-15] MEDS: LORazepam 2 mg VIAL 1 ml IV PUSH PRN ×2 (15:06→22:38)
[2021-04-15] MEDS: Lidocaine Patch REMOVE NOTE PATCH OFF SCH (20:38)
[2021-04-16] MEDS: Morphine 2 MG/ML SYRINGE IV PRN ×5 (00:10→14:59)
[2021-04-16] MEDS: HYDROmorphone 1 MG/1 ML SYRINGE IV SLOW PU PRN ×6 (02:14→21:12)
[2021-04-16] MEDS: LORazepam 2 mg VIAL 1 ml IV PUSH PRN (05:36)
[2021-04-16] MEDS: Atropine 1% (ORAL/SL) 15 ML BTL SL PRN ×5 (07:03→18:40)
[2021-04-16] MEDS: Senna TAB 8.6 mg TAB PO SCH (08:38)
[2021-04-16] MEDS: Lidocaine PATCH 5% PATCH TRANSDERM SCH (08:48)
[2021-04-16] MEDS: Morphine ORAL CONCENTRATE 5 MG/0.25 ML ORAL.SYRIN SL PRN (18:40)
[2021-04-16] MEDS: Lidocaine Patch REMOVE NOTE PATCH OFF SCH (22:49)
[2021-04-17] MEDS: Atropine 1% (ORAL/SL) 15 ML BTL SL PRN ×7 (00:57→21:00)
[2021-04-17] MEDS: LORazepam 2 mg VIAL 1 ml IV PUSH PRN ×2 (00:57→10:45)
[2021-04-17] MEDS: Morphine 2 MG/ML SYRINGE IV PRN ×5 (03:25→18:06)
[2021-04-17] MEDS: HYDROmorphone 1 MG/1 ML SYRINGE IV SLOW PU PRN ×2 (05:38→20:15)
[2021-04-17] MEDS: Lidocaine PATCH 5% PATCH TRANSDERM SCH (09:06)
[2021-04-17] MEDS: Senna TAB 8.6 mg TAB PO SCH (09:06)
[2021-04-17] MEDS: Lidocaine Patch REMOVE NOTE PATCH OFF SCH (19:29)
[2021-04-17] MEDS: Morphine ORAL CONCENTRATE 5 MG/0.25 ML ORAL.SYRIN SL PRN ×2 (20:15→23:04)
[2021-04-18] MEDS: HYDROmorphone 1 MG/1 ML SYRINGE IV SLOW PU PRN ×3 (01:10→11:14)
[2021-04-18] MEDS: Atropine 1% (ORAL/SL) 15 ML BTL SL PRN ×4 (01:10→21:47)
[2021-04-18] MEDS: Morphine ORAL CONCENTRATE 5 MG/0.25 ML ORAL.SYRIN SL PRN ×4 (02:36→10:01)
[2021-04-18] MEDS: Lidocaine PATCH 5% PATCH TRANSDERM SCH (10:02)
[2021-04-18] MEDS: Morphine 2 MG/ML SYRINGE IV PRN ×2 (15:03→21:44)
[2021-04-18] MEDS: Lidocaine Patch REMOVE NOTE PATCH OFF SCH (21:36)
[2021-04-19] MEDS: Morphine 2 MG/ML SYRINGE IV PRN ×7 (03:17→23:16)
[2021-04-19] MEDS: Atropine 1% (ORAL/SL) 15 ML BTL SL PRN ×3 (03:20→21:27)
[2021-04-19] MEDS: Lidocaine PATCH 5% PATCH TRANSDERM SCH (08:53)
[2021-04-19] MEDS: Lidocaine Patch REMOVE NOTE PATCH OFF SCH (21:27)
[2021-04-20] MEDS: Atropine 1% (ORAL/SL) 15 ML BTL SL PRN ×3 (01:09→05:43)
[2021-04-20] MEDS: Morphine 2 MG/ML SYRINGE IV PRN ×5 (01:10→08:30)
[2021-04-20] MEDS: Lidocaine PATCH 5% PATCH TRANSDERM SCH (07:29)
[2021-04-21] MEDS ORDERED: Scopolamine PATCH Remove NOTE PATCH OFF SCH (01:59)
== END 2021-04-20 09:25 | disposition expired | DRG 190 ==
LOC: ED 23:07 → EDHOLD 04-01 02:16 → SUATTDRO 04-01 02:16 → MED 04-01 12:17 → ICU 04-03 09:23 → MED 04-13 18:05
PROVIDERS: ADMIT Internal Medicine; ATTEND Internal Medicine